=== PATIENT | male | born 1965 | race African-American/Black ===

== ENCOUNTER 2018-08-17 18:01 | Inpatient (IN) | payer MEDICARE, OTHER ==
[~2018-08-17] VITALS: Ht 167.6 cm; Wt 106.1 kg
[2018-08-17] MEDS ORDERED: fentaNYL INJECTION 100 MCG/2 ML AMP IVP STA (18:32)
[2018-08-17] MEDS ORDERED: NS IV 1000 ML 1,000 ML IV STA ×2 (18:32→20:15)
--- NOTE | 2018-08-17 18:39 | ED Fall/Injury ---
General Chief Complaint: Trauma-Non Activation Stated Complaint: PER PT PASSED OUT AND HIT LT SIDE OF BODY. SOB. Nursing Triage Note: Patient states he became light headed and fell yesterday against his bathroom counter, states he hit primarily his left side. States he "woke up when I hit the ground." Reports pain rated 9/10 in left rib cage. Also states he has had generalized abdominal pain and diarrhea for 3 days. History of Present Illness Date Seen by Provider: Aug 17, 2018 Time Seen by Provider: 18:24 This is a 53-year-old male with a history of diabetes who complains of left- sided chest wall pain after a fall yesterday. He had just finished urinating and stood up and got lightheaded causing him to stumble forwards into the cabinet. For a couple days prior to this he felt like he had "stomach flu" with vomiting and diarrhea although this has resolved. He did not injure himself anywhere else. He did not anytime have chest pain other than this chest injury, he never had shortness of breath or palpitations, he has not had bloody or black stools, he denies a history of known heart issues, denies a history of congestive heart failure. His pain is sore, constant, moderate, nonradiating, nonmigratory, worse with direct palpation or with movement. Allergies and Home Medications Allergies Coded Allergies: No Known Drug Allergies (Unverified , 08/17/18) Patient Home Medication List Home Medication List Reviewed: Yes Review of Systems Review of Systems Constitutional: no symptoms reported Eyes: No Symptoms Reported Ears, Nose, Mouth, Throat: no symptoms reported Respiratory: no symptoms reported Cardiovascular: see HPI Gastrointestinal: no symptoms reported Musculoskeletal: see HPI Skin: no symptoms reported Psychiatric/Neurological: No Symptoms Reported Past Jhudtus-Ukfdlb-Nzqnne Hx Patient Social History Recent Foreign Travel: No Contact w/Someone Who Travel: No Recent Infectious Disease Expo: No Physical Exam Vital Signs Vital Signs - First Documented 08/17/18 08/17/18 18:05 21:30 Temp 98.1 Pulse 114 Resp 26 B/P (MAP) 100/62 (75) Pulse Ox 94 O2 Delivery Room Air O2 Flow Rate 3.00 Capillary Refill : Less Than 3 Seconds Height, Weight, BMI Height: 5'7.00" Weight: 235lbs. oz. 106.344207oz; BMI Method:Stated General Appearance: no apparent distress HEENT: PERRL/EOMI Neck: non-tender, supple Cardiovascular: normal peripheral pulses, other (tachycardic, regular) Respiratory: lungs clear, other (inspection of the chest wall, there is exquisite tenderness to palpation over the midaxillary line in the mid left chest with no crepitation) Gastrointestinal: non tender, soft Extremities: non-tender Neurologic/Psychiatric: prison keeper II-XII nml as tested, no motor/sensory deficits, alert, normal mood/affect, oriented x 3 Skin: warm/dry Progress/Results/Core Measures Results/Orders Lab Results Laboratory Tests Test 08/17/18 19:15 Range/Units White Blood Count 10.8 4.3-11.0 10^3/uL Red Blood Count 4.60 4.35-5.85 10^6/uL Hemoglobin 13.8 13.3-17.7 G/DL Hematocrit 41 40-54 % Mean Corpuscular Volume 90 80-99 FL Mean Corpuscular Hemoglobin 30 25-34 PG Mean Corpuscular Hemoglobin Concent 33 32-36 G/DL Red Cell Distribution Width 13.7 10.0-14.5 % Platelet Count 202 130-400 10^3/uL Mean Platelet Volume 11.7 H 7.4-10.4 FL D-Dimer 1.92 H 0.00-0.49 UG/ML Sodium Level 132 L 135-145 MMOL/L Potassium Level 5.0 3.6-5.0 MMOL/L Chloride Level 93 L 98-107 MMOL/L Carbon Dioxide Level 22 21-32 MMOL/L Anion Gap 17 H 5-14 MMOL/L Blood Urea Nitrogen 20 H 7-18 MG/DL Creatinine 1.72 H 0.60-1.30 MG/DL Estimat Glomerular Filtration Rate 50 BUN/Creatinine Ratio 12 Glucose Level 542 *H 70-105 MG/DL Calcium Level 8.9 8.5-10.1 MG/DL Troponin T 34 H <=15 NG/L My Orders Orders - RAMÍREZ FELTON T DO Ribs 2-3 View Left (08/17/18 18:32) Ekg Tracing (08/17/18 18:32) Troponin T (08/17/18 18:32) Cbc No Diff (08/17/18 18:32) Basic Metabolic Panel (08/17/18 18:32) Ns Iv 1000 Ml (Sodium Chloride 0.9%) (08/17/18 18:32) Fentanyl Injection (Sublimaze Injection (08/17/18 18:32) Insulin (Regular) Human (Humulin R (Per (08/17/18 20:14) Ns Iv 1000 Ml (Sodium Chloride 0.9%) (08/17/18 20:15) Ct Abdomen/Pelvis Wo (08/17/18 20:59) Fibrin Degradation Products (08/17/18 21:06) Medications Given in ED Vital Signs/I&O 08/17/18 08/17/18 08/17/18 08/17/18 18:05 18:21 20:00 21:30 Temp 98.1 98.1 Pulse 114 114 111 113 Resp 26 26 12 18 B/P (MAP) 100/62 (75) 100/62 (75) Pulse Ox 94 94 91 95 O2 Delivery Room Air Room Air Room Air Nasal Cannula O2 Flow Rate 3.00 Blood Pressure Mean: 75 Progress Progress Note #1: Progress Note This is a 53-year-old male with a history of diabetes who presents after a presyncopal event with a left chest wall injury. His presyncopal event is very likely secondary to a combination of dehydration as well as orthostatic hypotension. He did not have "red flag" symptoms such as chest pain or palpitations or shortness of breath, [place] syncope negative. His blood pressure is low normal and he is slightly tachycardic, this may be consistent with dehydration and we will fluid resuscitate. We will treat his pain with fentanyl. I will check an ECG, basic labs. We will check a rib x-ray. I think it is unlikely that patient has a splenic injury based on this mechanism of injury and the rest of his physical exam. He will be notified of my typical fashion for all trauma patients to follow-up for tertiary survey as soon as possible with primary care physician and to call 911 or return immediately for any new or worsening symptoms. Progress Note #2: Progress Note Patient had an elevated troponin of uncertain etiology. He does have renal insufficiency with no baseline creatinine in our system. Patient is unaware of any history of renal disease. His history again clearly suggests dehydration. He was treated with 2 L of saline. We treated with an IV bolus of 10 units of insulin, his blood glucose improved somewhat from the 500s to the 400s, he was given another bolus of 10 units of insulin. A concern was persistent hypoxia ( and sinus tachycardia) despite adequate pain control and 2 L of fluid resuscitation. It seems unlikely that he would have a pulmonary embolus, I did consider that this could have preceded his presyncopal event yesterday but again the history does not suggest this. I do however feel it is necessary to rule out this entity given the lack of response to our interventions. Patient does not have contraindications to anticoagulation, no evidence of internal bleeding on CT, no objective evidence of injury on any imaging, so we started him on a heparin drip. I discussed with admitting hospitalist Dr. Reagan that patient would likely require a VQ scan. EKG : Comment 1836: Sinus tachycardia rate of 117. Normal axis. Delayed precordial R-wave progression. Nonspecific T-wave flattening lead aVL. Q wave in lead 3. QTC 504 ms. Diagnostic Imaging Diagonstic Imaging: Xray Comments Date of Exam:08/17/18 RIBS 2-3 VIEW LEFT INDICATION: Followup left-sided rib pain. TIME OF EXAM: 6:32 p.m. FINDINGS: Multiple views of left ribs were obtained. No definite displaced rib fracture is seen. There is some atelectasis in the left base. No pneumothorax is seen. Extensive hardware in the left humerus is seen. IMPRESSION: No displaced rib fractures detected. Reviewed: Reviewed by Me (agree with findings) Critical Care Note Critical Care Start Time: 22:49 Stop Time: 23:24 Total Time (minutes) 35 minutes Progress Critical care time is exclusive of time spent on separately billable procedures. Risk to multiple organ systems from hypoxia, hyperglycemia, chest wall trauma. Primary and secondary survey were performed, advanced imaging was pursued in order to rule out life-threatening injury. Frequent reassessments were made. Multiple IV doses of insulin were administered. Supplemental oxygen was administered. Patient was given a heparin bolus and started on a heparin drip. Time also spent interpreting imaging, EKG, lab test results, discussing care with EMS and accepting physician at outside hospital. Departure Impression Primary Impression: Dehydration Additional Impressions: Hyperglycemia Elevated troponin Chest wall injury Sinus tachycardia Hypoxia Renal insufficiency Elevated d-dimer Disposition: 02 XFER SHT-TRM HOSP Condition: Stable (guarded) Transfer Time Spoke to Accepting Phy: 21:30 Transfer Facility: [facility], accepted by Dr. Reagan Method of Transfer: EMS Departure-Patient Inst. Referrals: RACQUEL RICHARDSON MD (PCP) Primary Care Physician RAMÍREZ FELTON DO Aug 17, 2018 18:39
--- NOTE | 2018-08-17 19:04 | Diagnostic Imaging Report ---
INDICATION: Followup left-sided rib pain. TIME OF EXAM: 6:32 p.m. FINDINGS: Multiple views of left ribs were obtained. No definite displaced rib fracture is seen. There is some atelectasis in the left base. No pneumothorax is seen. Extensive hardware in the left humerus is seen. IMPRESSION: No displaced rib fractures detected. Dictated by: Dictated on workstation # [id number]
[2018-08-17] MEDS ORDERED: ATOR40TA70 PO (19:10)
[2018-08-17] MEDS ORDERED: OMEP40CA36 PO (19:10)
[2018-08-17] MEDS ORDERED: INSU100I29 SC (19:10)
[2018-08-17] MEDS ORDERED: GBPN600T PO (19:10)
[2018-08-17] MEDS ORDERED: INSU100V6 (19:10)
[2018-08-17] MEDS ORDERED: INSU100I14 SC (19:10)
[2018-08-17] MEDS ORDERED: AMIT50TA3 PO (19:10)
[2018-08-17] MEDS ORDERED: METO10TA3 PO (19:10)
[2018-08-17 19:32] LABS: HEMOGLOBIN 13.8 G/DL (13.3-17.7); WHITE BLOOD COUNT 10.8 10^3/uL (4.3-11.0)
[2018-08-17 19:33] LABS: MEAN PLATELET VOLUME 11.7 FL (7.4-10.4); RED CELL DISTRIBUTION WIDTH 13.7 % (10.0-14.5)
[2018-08-17 20:04] LABS: CREATININE SERUM 1.72 MG/DL (0.60-1.30)
[2018-08-17 20:06] LABS: CALCIUM 8.9 MG/DL (8.5-10.1)
[2018-08-17] MEDS ORDERED: inSUlin (REGULAR) HUMAN 1 UNIT/0.01 ML (CHARGE PER UNIT) IV STA ×2 (20:14→22:17)
--- NOTE | 2018-08-17 21:50 | Diagnostic Imaging Report ---
PROCEDURE: CT abdomen and pelvis without contrast. TECHNIQUE: Multiple contiguous axial images were obtained through the abdomen and pelvis without the use of intravenous contrast. INDICATION: Syncope, fall, left-sided pain. FINDINGS: There is no free fluid. No evidence for hemoperitoneum. There is no free air. No focal bowel wall or mesenteric hematoma is found. Some basilar atelectasis greater left. The partially visualized ribs segments appeared intact. Reconstruction views revealed thoracolumbar spine to be maintained and aligned anatomically. There is no free air. There is no bowel, biliary or urinary tract obstruction. No inflammatory process. IMPRESSION: No acute or posttraumatic sequelae identified. No obstruction, perforation or fracture demonstrated. Dictated by: Dictated on workstation # [id number]
[2018-08-17] MEDS ORDERED: HEParin DRIP 25000 UNIT/500ML 500 ML IV ONE (22:01)
[2018-08-17] MEDS ORDERED: HEParin 1000 UNIT/ML (10ML VIAL) FOR BOLUS IV ONE (22:15)
--- NOTE | 2018-08-17 22:30 | NUR ---
peanut butter and crackers given to pt with diet sprite.
[2018-08-17 22:32] VITALS: BP 110/74
[2018-08-18] VITALS (7 sets, daily range): BP systolic 112–160; BP diastolic 62–94
[2018-08-18] MEDS ORDERED: NS IV 1000 ML 1,000 ML ONE (00:04)
--- NOTE | 2018-08-18 00:05 | NUR ---
MILAGRO RING admitted to room CU12-1, with an admitting diagnosis of HYPERGLYCEMIA, HYPOXIA,HYPOTENSION, ACUTE RENAL INSUFFICIENCY, on 08/17/18 from [facility] ED via , accompanied by .MILAGRO RING introduced to surroundings, call light, bed controls, phone, TV, temperature control, lights, meal times, smoking policy, visitor policy, side rail policy, bathrooms and showers. Patient Rights given to patient in the handbook. MILAGRO RING verbalizes understanding that [facility] is not responsible for the loss or damage to any personal effects or valuables that are kept in the patients posession during their hospitalization. The following Patient Care Plans were discussed with the : Discharge Planning, ,, and . MILAGRO RING verbalizes understanding of Interdisciplinary Patient Education. Patient and/or family were informed about the Rapid Response Team and its purpose.
--- NOTE | 2018-08-18 00:45 | NUR ---
ATTEMPTED TO CALL DR KNOX FOR ORDER CLARIFICATION SEVERAL TIMES WITHOUT SUCCESS
[2018-08-18] MEDS ORDERED: inSUlin (REGULAR) HUMAN 1 UNIT/0.01 ML (CHARGE PER UNIT) ONE (00:57)
[2018-08-18] MEDS ORDERED: RT-ALBUTEROL SULF 2.5 MG/3 ML PRE-MIX VIAL INH PRN (01:00)
[2018-08-18] MEDS ORDERED: HEParin 1000 UNIT/ML (10ML VIAL) FOR BOLUS IV SCH (01:00)
[2018-08-18] MEDS: inSUlin ASPART (NovoLOG) 1 UNIT/0.01 ML (CHARGE PER UNIT) SC SCH ×7 (01:00→21:10)
[2018-08-18] MEDS ORDERED: HEParin DRIP 25000 UNIT/500ML 500 ML IV SCH (01:02)
[2018-08-18 08:44] LABS: BASOPHILS % (AUTO) 0 % (0-10); EOSINOPHILS # (AUTO) 0.1 10^3/uL (0.0-0.3); EOSINOPHILS % (AUTO) 1 % (0-10); HEMATOCRIT 38 % (40-54); HEMOGLOBIN 12.9 G/DL (13.3-17.7); LYMPHOCYTES # (AUTO) 2.1 X 10^3 (1.0-4.0); LYMPHOCYTES % (AUTO) 33 % (12-44); MEAN CORPUSCULAR HEMOGLOBIN 30 PG (25-34); MEAN CORPUSCULAR HGB CONC 34 G/DL (32-36); MEAN CORPUSCULAR VOLUME 89 FL (80-99); MEAN PLATELET VOLUME 11.2 FL (7.4-10.4); MONOCYTES # (AUTO) 0.7 X 10^3 (0.0-1.0); MONOCYTES % (AUTO) 10 % (0-12); NEUTROPHILS # (AUTO) 3.6 X 10^3 (1.8-7.8); NEUTROPHILS % (AUTO) 56 % (42-75); PLATELET COUNT 181 10^3/uL (130-400); RED CELL DISTRIBUTION WIDTH 13.8 % (10.0-14.5); WHITE BLOOD COUNT 6.5 10^3/uL (4.3-11.0)
[2018-08-18] MEDS: RT-ALBUTEROL SULF 2.5 MG/3 ML PRE-MIX VIAL INH SCH ×2 (09:29→20:00)
--- NOTE | 2018-08-18 09:39 | History & Physical-Hospitalist ---
History of Present Illness HPI/Chief Complaint Chief Complaint: Syncopal episode HPI: This is a 53yoWM clinic pt of Dr. 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 At this current time all he is complaining of is left upper quadrant abdominal pain that is where he actually fell against the corner of his sink. CT scan was obtained that appeared to have no splenic rupture or anything of that matter. CT angiogram has been ordered by Dr. Jung due to elevated D dimer to r/o PE. I have consulted Dr. Nicole due to poorly controlled DM and elevated troponin and will check echocardiogram and await for his recommendations. He is , chronically disabled and lives with his mother. He previously worked in a factory. He had become dizzy and fell a couple of times before this occurred early Thursday morning, and he laid there for several minutes. Will order PT and OT and obtain a general surgery consultation due to the recent fall. Source: patient Exam Limitations: no limitations Date Seen 08/18/18 Time Seen by a Provider: 10:00 Attending Physician Wilman Reagan MD PCP Zacarias Alba MD Referring Physician Date of Admission Aug 17, 2018 at 21:30 Home Medications & Allergies Home Medications Reviewed patient Home Medication Reconciliation performed by pharmacy medication reconciliations retail merchandiser technician and/or nursing. Patients Allergies have been reviewed. Allergies Allergies Coded Allergies No Known Drug Allergies (Unverified08/17/18) Past Dxkxzbb-Xsbkdp-Izypme Hx Past Med/Social Hx: Reviewed Nursing Past Med/Soc Hx, Reviewed and Corrections made Patient Social History Marrital Status: Employed/Student: unemployed Alcohol Use: Denies Use Recreational Drug Use: No Smoking Status: Never a Smoker Type Used: Smokeless Tobacco 2nd Hand Smoke Exposure: No Recent Foreign Travel: No Contact w/other who traveled: No Recent Hopitalizations: No Recent Infectious Disease Expo: No Seasonal Allergies Seasonal Allergies: No Past Medical History Surgeries: Orthopedic Cardiac: Hypertension Neurological: Neuropathy Musculoskeletal: Back Injury Endocrine: Diabetes, Insulin dep History of Blood Disorders: No Adverse Reaction to Blood Amin: No Review of Systems Constitutional: see HPI, dizziness, weakness EENTM: no symptoms reported Respiratory: no symptoms reported Cardiovascular: chest pain Gastrointestinal: abdominal pain (LUQ) Genitourinary: no symptoms reported Musculoskeletal: back pain, joint pain Skin: no symptoms reported Psychiatric/Neurological: Depressed All Other Systems Reviewed Negative Unless Noted: Yes Physical Exam Physical Exam Vital Signs Vital Signs - First Documented 08/17/18 08/17/18 08/18/18 18:05 21:30 00:34 Temp 98.1 Pulse 114 Resp 26 B/P (MAP) 100/62 (75) Pulse Ox 94 O2 Delivery Room Air O2 Flow Rate 3.00 FiO2 28 Capillary Refill : Less Than 3 Seconds Height, Weight, BMI Height: 5'6.00" Weight: 234lbs. 0.0oz. 106.600953ok; 36.8 BMI Method:Stated General Appearance: No Apparent Distress, WD/WN, Chronically ill Eyes: Right Eye Normal Inspection, Right Eye PERRL HEENT: PERRL/EOMI, Normal ENT Inspection, Pharynx Normal, Moist Mucous Membranes Neck: Full Range of Motion, Normal Inspection, Non Tender Respiratory: Chest Non Tender, Lungs Clear, Normal Breath Sounds, No Accessory Muscle Use, No Respiratory Distress Cardiovascular: Regular Rate, Rhythm, No Edema, No Gallop, No JVD, No Murmur, Normal Peripheral Pulses Gastrointestinal: Normal Bowel Sounds, No Organomegaly, No Pulsatile Mass, Non Tender, Soft Back: Normal Inspection, No CVA Tenderness, No Vertebral Tenderness Extremity: Normal Capillary Refill, Normal Inspection, Normal Range of Motion, Non Tender, No Calf Tenderness, No Pedal Edema Neurologic/Psychiatric: Alert, Oriented x3, No Motor/Sensory Deficits, Normal Mood/Affect Skin: Normal Color, Warm/Dry Lymphatic: No Adenopathy Results Results/Procedures Labs Laboratory Tests 08/17/18 19:15 08/18/18 08:35 Patient resulted labs reviewed. Assessment/Plan Admission Diagnosis Assessment: Syncope Severe hyperglycemia Poorly controlled DM Disability due to orthopedic issues Elevated d-dimer with normal VQ scan Elevated troponin Fall with left upper abdominal pain consulting general surgery due to trauma and spleen near region of fall Plan: General surgery, Pulmonology and Cardiology appreciated Complex case Poorly controlled diabetes management Admission Status: Inpatient Order (span 2 midnights) Reason for Inpatient Admission: Poorly controlled DM with chest pain and ARF will require 3 days Diagnosis/Problems Diagnosis/Problems (1) Chest wall injury Status: Acute Qualifiers: Encounter type: initial encounter Qualified Codes: S29.9XXA - Unspecified injury of thorax, initial encounter (2) Elevated troponin Status: Resolved Resolution Date/Time: 08/18/18 @ 19:59 (3) Hypoxia Status: Acute (4) Renal insufficiency Status: Acute (5) Hyperglycemia Status: Acute (6) Dehydration Status: Acute (7) Sinus tachycardia Status: Acute (8) Elevated d-dimer Status: Acute (9) GERD (gastroesophageal reflux disease) Status: Chronic Qualifiers: Esophagitis presence: without esophagitis Qualified Codes: K21.9 - Gastro- esophageal reflux disease without esophagitis (10) Hyperlipemia Status: Chronic Qualifiers: Hyperlipidemia type: mixed hyperlipidemia Qualified Codes: E78.2 - Mixed hyperlipidemia Clinical Quality Measures DVT/VTE Risk/Contraindication: Risk Factor Score Per Nursin RFS Level Per Nursing on Admit: 2=Moderate DAVID HERNÁNDEZ DO Aug 18, 2018 09:39
[2018-08-18 09:48] LABS: ALANINE AMINOTRANSFERASE 17 U/L (0-55); ALBUMIN 3.4 GM/DL (3.2-4.5); ALKALINE PHOSPHATASE 153 U/L (40-136); BILIRUBIN,TOTAL 0.3 MG/DL (0.1-1.0); BUN/CREATININE RATIO 11; CARBON DIOXIDE 22 MMOL/L (21-32); CHLORIDE 104 MMOL/L (98-107); CREATININE SERUM 1.42 MG/DL (0.60-1.30); GFR ESTIMATED > 60; GLUCOSE 386 MG/DL (70-105); SODIUM 136 MMOL/L (135-145); TOTAL PROTEIN 6.6 GM/DL (6.4-8.2)
--- NOTE | 2018-08-18 10:53 | Consultation-Cardiology ---
HPI-Cardiology Cardiology Consultation: Date of Consultation 08/18/18 Time Seen by a Provider: 10:00 Date of Admission 08-18-18 Attending Physician Wilman Reagan MD Admitting Physician Zacarias Alba MD Consulting Physician Yvan Nicole MD HPI: Chief Complaint: Near syncope Mr. Matson is a 53 year old male admitted to ICU 12 from [facility] ED. He reports he had gotten up on late Thursday night to use the BR. He urinated and then went to walk back to bed. He states he had a sudden feeling of lightheadedness and "going down". He states he began to fall and hit his left side on the bathroom sink. He reports he did not completely pass out. He reports he fell to the ground and laid there for approx 30minutes before he could get himself up. He states the pain to his left side persisted and he came to the ED in [facility]. He reports he has been having episodes of diarrhea. No n/v. No c/o fever or chills. He reports he has had some increased SOB and inability to take a deep breath d/t the amount of pain he is having. He reports for the last week he has had episodes of lightheadedness when getting up to ambulate, but no syncopal episode. He reports he sits down and the dizziness with resolve. No c/o palpitations. He reports chronic bilat LE swelling which has been somewhat worse lately. He reports he has not been checking his blood sugars at home. Review of Systems-Cardiology Review of Systems Constitutional: No chills, No malaise Eyes: No blindness, No vision change Ears/Nose/Throat: No epistaxis, No recent hearing loss Respiratory: As described under HPI Cardiovascular: As described under HPI Gastrointestinal: No constipation; diarrhea; No nausea, No vomiting Genitourinary: No dysuria, No hematuria Musculoskeletal: joint pain (chronic left ankle), other (lateral left pain " rib pain") Skin: No rash, No ulcerations Psychiatric/Neurological: As described under HPI; No seizure, No focal weakness Hematologic: No bleeding abnormalities [id number] Hx Patient Social History Alcohol Use: Denies Use Recreational Drug Use: No Smoking Status: Never a Smoker Type Used: Smokeless Tobacco 2nd Hand Smoke Exposure: No Recent Foreign Travel: No Recent Infectious Disease Expo: No Hospitalization with Isolation: Denies Past Medical History PMH As described under Assessment. Family Medical History Family Medical History: Denies any family h/o CAD, CVA or SCD Allergies and Home Medications Allergies Coded Allergies: No Known Drug Allergies (Unverified , 08/17/18) Home Medications Amitriptyline HCl 50 Mg Tablet, 50 MG PO HS, (Reported) Atorvastatin Calcium 40 Mg Tablet, 40 MG PO HS, (Reported) Gabapentin 600 Mg Tablet, 600 MG PO TID, (Reported) Hydrocodone Bit/Acetaminophen 1 Tab Tab, 1 TAB PO Q4-6HR PRN for PAIN-MODERATE Prescribed by: DAVID HERNÁNDEZ on 08/19/18927 Insulin Aspart 300 Units/3 Ml Solution, 15 UNITS SC TIDAC, (Reported) Insulin Detemir 100 Unit/1 Ml Insuln.pen, 25 UNITS SC BID, (Reported) Metoclopramide HCl 10 Mg Tablet, 10 MG PO TID, (Reported) Metoprolol Tartrate 25 Mg Tablet, 25 MG PO BID Prescribed by: DAVID HERNÁNDEZ on 08/19/18927 Omeprazole 40 Mg Capsule.dr, 40 MG PO DAILY, (Reported) Patient Home Medication List Home Medication List Reviewed: Yes Physical Exam-Cardiology Physical Exam Vital Signs/I&O 08/19/18 08/19/18 08/19/18 08/19/18 00:00 04:50 08:00 08:02 Temp 98.9 99.0 97.5 Pulse 96 88 96 Resp 20 20 18 B/P (MAP) 115/77 (90) 113/78 (90) 116/75 (89) Pulse Ox 96 95 94 88 O2 Delivery Room Air Nasal Cannula Room Air Room Air O2 Flow Rate 2.00 08/19/18 00:00 Intake Total 960 ml Output Total 350 ml Balance 610 ml Capillary Refill : Less Than 3 Seconds Constitutional: AAO x 3, well-developed, well-nourished HEENT: PERRL, hearing is well preserved, oral hygience is good Neck: No carotid bruit; carotid pulses are 2 + bilaterally Respiratory: No accessory muscle use, No respiratory distress; chest expansion is symmetric, chest is bilaterally symmetric, other (fair air entry bilat; poor inspiratory effort) Cardiovascular: regular rate-rhythm; No JVD; S1 and S2 Gastrointestinal: No tender; soft, round, audible bowel sounds Rectal: deferred Genital/Rectal: other (urinary catheter to DD with clear straw colored urine) Extremities: other (mod bilat LE swelling) Neurologic/Psychiatric: oriented x 3, grossly intact Skin: No rash, No ulcerations Data Review Labs Laboratory Tests 08/18/18 10:42: Glucometer 360H 08/18/18 17:23: Glucometer 397H 08/18/18 20:44: Glucometer 192H 08/19/18 04:20: White Blood Count 8.6, Red Blood Count 4.09L, Hemoglobin 12.1L, Hematocrit 36L, Mean Corpuscular Volume 89, Mean Corpuscular Hemoglobin 30, Mean Corpuscular Hemoglobin Concent 33, Red Cell Distribution Width 13.9, Platelet Count 188, Mean Platelet Volume 11.1H, Sodium Level 136, Potassium Level 4.2, Chloride Level 103, Carbon Dioxide Level 23, Anion Gap 10, Blood Urea Nitrogen 12, Creatinine 1.24, Estimat Glomerular Filtration Rate > 60, BUN/Creatinine Ratio 10, Glucose Level 398H, Calcium Level 8.6, Corrected Calcium 9.2, Magnesium Level 1.4L, Total Bilirubin 0.3, Aspartate Amino Transf (AST/SGOT) 22, Alanine Aminotransferase (ALT/SGPT) 18, Alkaline Phosphatase 145H, Total Protein 6.2L, Albumin 3.2, Triglycerides Level 102, Cholesterol Level 108, LDL Cholesterol Direct 61, VLDL Cholesterol 20, HDL Cholesterol 29L, Thyroid Stimulating Hormone (TSH) 1.24 Radiology NAME: MILAGRO MATSON [facility] REC#: [id number] PT STATUS: REG ER : 1965 PHYSICIAN: RAMÍREZ FELTON DO ADMIT DATE: 08/17/18/ER FS Signed Date of Exam: 08/17/18 CT ABDOMEN/PELVIS WO PROCEDURE: CT abdomen and pelvis without contrast. TECHNIQUE: Multiple contiguous axial images were obtained through the abdomen and pelvis without the use of intravenous contrast. INDICATION: Syncope, fall, left-sided pain. FINDINGS: There is no free fluid. No evidence for hemoperitoneum. There is no free air. No focal bowel wall or mesenteric hematoma is found. Some basilar atelectasis greater left. The partially visualized ribs segments appeared intact. Reconstruction views revealed thoracolumbar spine to be maintained and aligned anatomically. There is no free air. There is no bowel, biliary or urinary tract obstruction. No inflammatory process. IMPRESSION: No acute or posttraumatic sequelae identified. No obstruction, perforation or fracture demonstrated. Dictated by: Dictated on workstation # [id number] Dict: 08/17/182140 Trans: 08/17/182155 Interpreted by: NICOL VALERIO Electronically signed by: NICOL VALERIO 08/17/182155 A/P-Cardiology Assessment/Admission Diagnosis Near syncopal episode of undetermined etiology Elevated troponin at [facility] ED (Trop T - subsequent Trop I at this facility have been WNL) Dyspnea of undetermined etiology Sinus tachycardia GERD Hep C (+) for which he reports he has had tx DM 2 - IDDM Chronic joint pain Renal insufficiency - likely chronic d/t diabetic nephropathy Bilat LE swelling Discussion and Recomendations Near syncopal episode of undetermined etiology - possible postural hypotension - check ortho v/s Monitor on tele for possible bradyarrhythmia Echocardiogram to eval structure and function Monitor lab closely Management of DM as per medical services Further recs will be based on his hospital course We would like to thank medical services for this consult Clinical Quality Measures DVT/VTE Risk/Contraindication: Risk Factor Score Per Nursin RFS Level Per Nursing on Admit: 2=Moderate MEIR RAMIREZ Aug 18, 2018 10:53
[2018-08-18] MEDS ORDERED: meTOprolol TARTRATE 25 MG (LOPRESSOR) TABLET PO NR (11:15)
--- NOTE | 2018-08-18 11:23 | NUR ---
WENT OVER THE EXT MED HX WITH THE PATIENT AND HE VERIFIED HOW HE TAKES EACH MEDICATION. HE STATES HE DOES NOT TAKE ANYTHING OTC.
--- NOTE | 2018-08-18 13:00 | NUR ---
REPORT RECEIVED FROM BOAT WASHER.
--- NOTE | 2018-08-18 13:40 | NUR ---
PATIENT BROUGHT TO ROOM VIA WHEELCHAIR. VITAL SIGNS STABLE ON ROOM AIR. PATIENT ORIENTED TO ROOM AND CALL LIGHT. NO FURTHER NEEDS EXPRESSED AT THIS TIME.
[2018-08-18] MEDS: fentaNYL INJECTION 100 MCG/2 ML AMP IV PRN ×2 (14:44→17:43)
[2018-08-18] MEDS: GABAPENTIN 600 MG (NEURONTIN) TAB PO SCH ×2 (14:44→21:09)
--- NOTE | 2018-08-18 15:57 | Physical Therapy Progress Note ---
Therapy Progress Note 1553 Pt was not in room and nurse reports that he is down in radiology for a lung scan. PT will assess in the morning for participation in physical therapy services. BRET GUO PT Aug 18, 2018 15:57
[2018-08-18] MEDS: METOCLOPRAMIDE 10 MG (REGLAN) TAB PO SCH (17:28)
--- NOTE | 2018-08-18 17:52 | Consultation-Cardiology ---
HPI-Cardiology Cardiology Consultation: Date of Consultation 08/18/18 Time Seen by a Provider: 13:00 Date of Admission Attending Physician Wilman Reagan MD Admitting Physician Zacarias Alba MD Consulting Physician DELANEY GALEAS MD, MA, FACP, FACC, [facility] HPI: Chief Complaint: Near syncope Mr. Matson is a 53 year old male admitted to ICU 12 from [facility] ED. He reports he had gotten up on late Thursday night to use the BR. He urinated and then went to walk back to bed. He states he had a sudden feeling of lightheadedness and "going down". He states he began to fall and hit his left side on the bathroom sink. He reports he did not completely pass out. He reports he fell to the ground and laid there for approx 30minutes before he could get himself up. He states the pain to his left side persisted and he came to the ED in [facility]. He reports he has been having episodes of diarrhea. No n/v. No c/o fever or chills. He reports he has had some increased SOB and inability to take a deep breath d/t the amount of pain he is having. He reports for the last week he has had episodes of lightheadedness when getting up to ambulate, but no syncopal episode. He reports he sits down and the dizziness with resolve. No c/o palpitations. He reports chronic bilat LE swelling which has been somewhat worse lately. He reports he has not been checking his blood sugars at home. Review of Systems-Cardiology Review of Systems Constitutional: No chills, No malaise Eyes: No blindness, No vision change Ears/Nose/Throat: No epistaxis, No recent hearing loss Respiratory: As described under HPI Cardiovascular: As described under HPI Gastrointestinal: No constipation; diarrhea; No nausea, No vomiting Genitourinary: No dysuria, No hematuria Musculoskeletal: joint pain (chronic left ankle), other (lateral left pain " rib pain") Skin: No rash, No ulcerations Psychiatric/Neurological: As described under HPI; No seizure, No focal weakness Hematologic: No bleeding abnormalities [id number] Hx Patient Social History Alcohol Use: Denies Use Recreational Drug Use: No Smoking Status: Never a Smoker Type Used: Smokeless Tobacco 2nd Hand Smoke Exposure: No Recent Foreign Travel: No Recent Infectious Disease Expo: No Hospitalization with Isolation: Denies Past Medical History PMH As described under Assessment. Family Medical History Family Medical History: Denies any family h/o CAD, CVA or SCD Allergies and Home Medications Allergies Coded Allergies: No Known Drug Allergies (Unverified , 08/17/18) Home Medications Amitriptyline HCl 50 Mg Tablet, 50 MG PO HS, (Reported) Atorvastatin Calcium 40 Mg Tablet, 40 MG PO HS, (Reported) Gabapentin 600 Mg Tablet, 600 MG PO TID, (Reported) Insulin Aspart 300 Units/3 Ml Solution, 15 UNITS SC TIDAC, (Reported) Insulin Detemir 100 Unit/1 Ml Insuln.pen, 25 UNITS SC BID, (Reported) Metoclopramide HCl 10 Mg Tablet, 10 MG PO TID, (Reported) Omeprazole 40 Mg Capsule.dr, 40 MG PO DAILY, (Reported) Patient Home Medication List Home Medication List Reviewed: Yes Physical Exam-Cardiology Physical Exam Vital Signs/I&O 08/18/18 08/18/18 08/18/18 08/18/18 07:00 08:00 09:30 13:17 Pulse 99 105 110 Resp 20 B/P (MAP) Pulse Ox 92 O2 Delivery Nasal Cannula Nasal Cannula O2 Flow Rate 2.00 08/18/18 08/18/18 13:42 17:20 Temp 98.6 97.6 Pulse 110 80 Resp 18 22 B/P (MAP) 121/94 (103) 123/80 (94) Pulse Ox 93 92 O2 Delivery Room Air Room Air 08/18/18 00:00 Intake Total 2024 ml Balance 2024 ml Capillary Refill : Less Than 3 Seconds Constitutional: AAO x 3, well-developed, well-nourished HEENT: PERRL, hearing is well preserved, oral hygience is good Neck: No carotid bruit; carotid pulses are 2 + bilaterally Respiratory: No accessory muscle use, No respiratory distress; chest expansion is symmetric, chest is bilaterally symmetric, other (fair air entry bilat; poor inspiratory effort) Cardiovascular: regular rate-rhythm; No JVD; S1 and S2 Gastrointestinal: No tender; soft, round, audible bowel sounds Rectal: deferred Genital/Rectal: other (urinary catheter to DD with clear straw colored urine) Extremities: other (mod bilat LE swelling) Neurologic/Psychiatric: oriented x 3, grossly intact Skin: No rash, No ulcerations Data Review Labs Laboratory Tests 08/17/18 19:15: White Blood Count 10.8, Red Blood Count 4.60, Hemoglobin 13.8, Hematocrit 41, Mean Corpuscular Volume 90, Mean Corpuscular Hemoglobin 30, Mean Corpuscular Hemoglobin Concent 33, Red Cell Distribution Width 13.7, Platelet Count 202, Mean Platelet Volume 11.7H, D-Dimer 1.92H, Sodium Level 132L, Potassium Level 5.0, Chloride Level 93L, Carbon Dioxide Level 22, Anion Gap 17H, Blood Urea Nitrogen 20H, Creatinine 1.72H, Estimat Glomerular Filtration Rate 50, BUN/ Creatinine Ratio 12, Glucose Level 542*H, Calcium Level 8.9, Troponin T 34H 08/17/18 21:55: Glucometer 454*H 08/18/18 00:27: Glucometer 373H 08/18/18 00:30: Activated Partial Thromboplast Time > 200*H, Troponin I < 0.028 08/18/18 06:27: Glucometer 381H 08/18/18 08:35: White Blood Count 6.5, Red Blood Count 4.30L, Hemoglobin 12.9L, Hematocrit 38L, Mean Corpuscular Volume 89, Mean Corpuscular Hemoglobin 30, Mean Corpuscular Hemoglobin Concent 34, Red Cell Distribution Width 13.8, Platelet Count 181, Mean Platelet Volume 11.2H, Neutrophils (%) (Auto) 56, Lymphocytes (%) (Auto) 33 , Monocytes (%) (Auto) 10, Eosinophils (%) (Auto) 1, Basophils (%) (Auto) 0, Neutrophils # (Auto) 3.6, Lymphocytes # (Auto) 2.1, Monocytes # (Auto) 0.7, Eosinophils # (Auto) 0.1, Basophils # (Auto) 0.0, Activated Partial Thromboplast Time 85H, Sodium Level 136, Potassium Level 4.0, Chloride Level 104 , Carbon Dioxide Level 22, Anion Gap 10, Blood Urea Nitrogen 16, Creatinine 1.42H, Estimat Glomerular Filtration Rate > 60, BUN/Creatinine Ratio 11, Glucose Level 386H, Calcium Level 9.0, Corrected Calcium 9.5, Total Bilirubin 0.3, Aspartate Amino Transf (AST/SGOT) 19, Alanine Aminotransferase (ALT/SGPT) 17, Alkaline Phosphatase 153H, Troponin I < 0.028, Total Protein 6.6, Albumin 3.4 08/18/18 10:42: Glucometer 360H 08/18/18 17:23: Glucometer 397H A/P-Cardiology Assessment/Admission Diagnosis Near syncopal episode of undetermined etiology No evidence of acute TN. Elevated troponin T at [facility] ED, but Trop I at this facility have been WNL) Dyspnea of undetermined etiology Sinus tachycardia GERD Hep C (+) for which he reports he has had tx DM 2 - IDDM Chronic joint pain Renal insufficiency - likely chronic d/t diabetic nephropathy Bilat LE swelling Discussion and Recomendations Near syncopal episode of undetermined etiology - possible postural hypotension - check ortho v/s Monitor on tele for possible bradyarrhythmia Echocardiogram to eval structure and function MPI to eval for cor ischemia Monitor lab closely Management of DM as per medical services Further recs will be based on his hospital course We would like to thank medical services for this consult Clinical Quality Measures DVT/VTE Risk/Contraindication: Risk Factor Score Per Nursin RFS Level Per Nursing on Admit: 2=Moderate DELANEY GALEAS MD FACP FACC [facility] Aug 18, 2018 17:52
[2018-08-18] MEDS ORDERED: REGADENOSON 0.4 MG/5 ML SYR (LEXISCAN) IV ONE (18:00)
--- NOTE | 2018-08-18 18:10 | Diagnostic Imaging Report ---
INDICATION: Hypoxia and elevated troponin with hyperglycemia and acute renal insufficiency. EXAMINATION: Ventilation and perfusion lung imaging was performed after intravenous administration of 5 mCi intravenous technetium 99m MAA and 36 mCi technetium 99m DTPA via facemask. FINDINGS: There is normal distribution of activity on ventilation and perfusion images. There is no evidence of focal defect or wedge-shaped abnormality. No mismatch is seen. IMPRESSION: Normal ventilation and perfusion lung scan. Dictated by: Dictated on workstation # [id number]
[2018-08-18] MEDS ORDERED: AMITRIPTYLINE 50 MG (ELAVIL) TAB PO SCH (21:00)
[2018-08-18] MEDS: inSUlin DETERMIR 1 UNIT/0.01 ML (LEVEMIR) CHARGE PER UNIT SQ SCH (21:09)
[2018-08-18] MEDS: meTOprolol TARTRATE 25 MG (LOPRESSOR) TABLET PO SCH (21:09)
[2018-08-19] VITALS: BP 115/77
[2018-08-19 04:29] LABS: HEMOGLOBIN 12.1 G/DL (13.3-17.7); MEAN PLATELET VOLUME 11.1 FL (7.4-10.4); RED CELL DISTRIBUTION WIDTH 13.9 % (10.0-14.5); WHITE BLOOD COUNT 8.6 10^3/uL (4.3-11.0)
[2018-08-19 04:50] VITALS: BP 113/78
[2018-08-19 04:52] LABS: ALANINE AMINOTRANSFERASE 18 U/L (0-55); ALBUMIN 3.2 GM/DL (3.2-4.5); ALKALINE PHOSPHATASE 145 U/L (40-136); BILIRUBIN,TOTAL 0.3 MG/DL (0.1-1.0); BUN/CREATININE RATIO 10; CALCIUM 8.6 MG/DL (8.5-10.1); CARBON DIOXIDE 23 MMOL/L (21-32); CHLORIDE 103 MMOL/L (98-107); CHOLESTEROL 108 MG/DL (< 200); CREATININE SERUM 1.24 MG/DL (0.60-1.30); GFR ESTIMATED > 60; GLUCOSE 398 MG/DL (70-105); HDL CHOLESTEROL 29 MG/DL (40-60); MAGNESIUM 1.4 MG/DL (1.8-2.4); POTASSIUM 4.2 MMOL/L (3.6-5.0); SODIUM 136 MMOL/L (135-145); TOTAL PROTEIN 6.2 GM/DL (6.4-8.2); TRIGLYCERIDES 102 MG/DL (<150); VLDL CHOLESTEROL 20 MG/DL (5-40)
[2018-08-19] MEDS: METOCLOPRAMIDE 10 MG (REGLAN) TAB PO SCH ×2 (06:07→12:30)
[2018-08-19] MEDS: inSUlin ASPART (NovoLOG) 1 UNIT/0.01 ML (CHARGE PER UNIT) SC SCH ×4 (06:07→12:29)
[2018-08-19 08:00] VITALS: BP 116/75
[2018-08-19] MEDS: RT-ALBUTEROL SULF 2.5 MG/3 ML PRE-MIX VIAL INH SCH (08:02)
--- NOTE | 2018-08-19 08:38 | Physical Therapy Evaluation ---
PT Evaluation-General Medical Diagnosis Admission Date Aug 17, 2018 at 21:30 Medical Diagnosis: weakness Onset Date: Aug 17, 2018 Therapy Diagnosis Therapy Diagnosis: impaired mobility, endurance, strength Height/Weight Height (Feet): 5 Height (Inches): 6.00 Weight (Pounds): 234 Weight (Ounces): 0.0 Precautions Precautions/Isolations: Standard Precautions Referral Physician: Malaika Padilla DO Reason for Referral: Evaluation/Treatment Medical History Additional Medical History Past Medical History Surgeries: Orthopedic Cardiac: Hypertension Neurological: Neuropathy Musculoskeletal: Back Injury Endocrine: Diabetes, Insulin dep History of Blood Disorders: No Reviewed History: Yes Social History Home: Single Level Current Living Status: Other Family Entry Into Home: Stairs With Railing Prior/Core FIM Prior Level of Function Therapy Code Descriptions/Definitions Functional [place] Measure: 0=Not Assessed/NA 4=Minimal Assistance 1=Total Assistance 5=Supervision or Setup 2=Maximal Assistance 6=Modified [place] 3=Moderate Assistance 7=Complete [place] Therapy Quality Codes: 6 Independent with activity with or without an assistive device 5 Patient requires set up or clean up by helper. Patient completes activity by themselves 4 Supervision or touching assist (CGA). [place] provide cues , steadying assist 3 The helper provides less than half the effort to complete the activity 2 The helper provides more than half the effort to complete the activity 1 Dependent. The helper does all the effort to complete an activity 7 Patient refused to complete or attempt activity 9 The patient did not perform the activity before the current illness or injury 88 Not attempted due to Medical conditions or safety concerns Functional Abilities and Goals: Independent: Patient completed the activities by him/herself, with or without an assistive device, with no assistance from a helper. Needed Some Help: Patient needed partial assistance from another person to complete activities. Dependent: A helper completed the activities for the patient. Unknown: Not Applicable: Bed Mobility: 7 Transfers (B,C,W/C) (FIM): 7 Gait: 7 Indoor Mobility (Ambulation): Independent Stairs: Independent PT Evaluation-Current Subjective Patient sitting EOB pre tx, agrees to PT, has 5/10 pain in left side. Pt/Family Goals "to go home" Objective Patient Orientation: Person, Place, Situation Attachments: Oxygen, IV ROM/Strength ROM Lower Extremities limited in left ankle (orthopedic surgery) Strength Lower Extremities right lower extremity (hip flexion 3+/5, knee flexion 4+/5, knee extension 4+/5 , dorsiflexion 3+/5), left lower extremity (hip flexion 3+/5, knee flexion 4+/5 , knee extension 4+/5, dorsiflexion 3+/5) Neuromuscular (Tone, Coordination, Reflexes) NT Sensory Vision: Functional Hearing: Functional Sensation Right Lower Extremit: Impaired Sensation Left Lower Extremity: Impaired Transfers Therapy Code Descriptions/Definitions Functional [place] Measure: 0=Not Assessed/NA 4=Minimal Assistance 1=Total Assistance 5=Supervision or Setup 2=Maximal Assistance 6=Modified [place] 3=Moderate Assistance 7=Complete [place] Transfers (B, C, W/C) (FIM): 6 Sit to/from Stand: 6 Gait Mode of Locomotion: Walk Anticipated Mode of Locomotion: Walk Gait (FIM): 6 Distance: 300' Gait Assistive Device: Cane Single Point Comments/Gait Description Steady but slow ambulation, no LOB, therapist needed to push IV pole and oxygen tank Balance Sitting Static: Normal Sitting Dynamic: Normal Standing Static: Good Standing Dynamic: Good Treatment seated exercises x15 (AP, LAQ) Assessment/Needs Patient has impaired mobility and endurance, no LOB or dizziness. Rehab Potential: Fair PT Short Term Goals Short Term Goals Time Frame: Aug 26, 2018 Transfers (B,C,W/C) (FIM): 7 Gait (FIM): 6 Gait Distance Comment: 400' Gait Assistive Device: Cane Single Point PT Plan Problem List Problem List: Activity Tolerance, Functional Strength, Gait Treatment/Plan Treatment Plan: Continue Plan of Care Treatment Plan: Education, Functional Activity Ti, Functional Strength, Gait , Therapeutic Exercise Treatment Duration: Aug 26, 2018 Frequency: 6 times per week Estimated Hrs Per Day: .25 hour per day Patient and/or Family Agrees t: Yes Safety Risks/Education Patient Education: Gait Training, Transfer Techniques, Correct Positioning, Safety Issues Teaching Recipient: Patient Teaching Methods: Demonstration, Discussion Response to Teaching: Reinforcement Needed Discharge Recommendations Plan Patient will perform bed mobility and transfer training, balance and endurance training, functional strengthening, stair training, gait training, and education , to improve functional mobility and independence at home. Therapy D/C Recommendations: Home w/ Family Support Time/GCodes Time In: 815 Time Out: 830 Total Billed Treatment Time: 15 Total Billed Treatment 1 visit EVL 15' RANJITH FERNANDEZ PT Aug 19, 2018 08:38
[2018-08-19] MEDS ORDERED: PANTOPRAZOLE 40 MG (PROTONIX) TAB PO SCH (09:00)
[2018-08-19] MEDS: meTOprolol TARTRATE 25 MG (LOPRESSOR) TABLET PO SCH (09:11)
[2018-08-19] MEDS: inSUlin DETERMIR 1 UNIT/0.01 ML (LEVEMIR) CHARGE PER UNIT SQ SCH (09:12)
[2018-08-19] MEDS: GABAPENTIN 600 MG (NEURONTIN) TAB PO SCH ×2 (09:12→14:00)
[2018-08-19] MEDS ORDERED: METO-333 PO (09:28)
[2018-08-19] MEDS ORDERED: ACHD5005 PO (09:28)
--- NOTE | 2018-08-19 09:29 | Discharge Summary-Hospitalist ---
Diagnosis/Chief Complaint Date of Admission Aug 17, 2018 at 21:30 Date of Discharge Discharge Date: Aug 19, 2018 Admission Diagnosis Assessment: Syncope Severe hyperglycemia Poorly controlled DM Disability due to orthopedic issues Elevated d-dimer with normal VQ scan Elevated troponin Fall with left upper abdominal pain consulting general surgery due to trauma and spleen near region of fall Plan: General surgery, Pulmonology and Cardiology appreciated Complex case Poorly controlled diabetes management Discharge Diagnosis (1) Chest wall injury Status: Acute (2) Elevated troponin Status: Resolved (3) Hypoxia Status: Resolved (4) Renal insufficiency Status: Chronic (5) Hyperglycemia Status: Acute (6) Dehydration Status: Resolved (7) Sinus tachycardia Status: Resolved (8) Elevated d-dimer Status: Acute (9) GERD (gastroesophageal reflux disease) Status: Chronic (10) Hyperlipemia Status: Chronic Discharge Summary Discharge Physical Exam Allergies: Coded Allergies: No Known Drug Allergies (Unverified , 08/17/18) Vitals & I&Os Vital Signs Date Time Temp Pulse Resp B/P (MAP) Pulse Ox O2 Delivery O2 Flow Rate FiO2 08/19/18 14:00 08/19/18 12:00 97.9 85 18 96 Room Air 08/19/18 04:50 2.00 08/18/18 00:34 28 General Appearance: No Apparent Distress, WD/WN, Chronically ill, Obese Respiratory: Chest Non Tender, Lungs Clear, Normal Breath Sounds, No Accessory Muscle Use, No Respiratory Distress Cardiovascular: Regular Rate, Rhythm, No Edema, No Gallop, No JVD, No Murmur, Normal Peripheral Pulses Neurologic/Psychiatric: Alert, Oriented x3, No Motor/Sensory Deficits, Normal Mood/Affect Hospital Course Was the Problem List Reviewed?: Yes Pt ready for DC Cardiology will put a 30 day event monitor on and have follow up with him after that Pain medication for left upper quadrant abdominal pain provided Eating and drinking well Bowels are moving Has plenty of insulin and home medications at home Will send a few pain pill prescriptions with him at DC Pt had an uneventful hospital course and after he was monitored closely on telemetry echocardiogram completed and Dr. Nicole and Dr. Jung consultation performed. He was deemed stable for DC to home with close follow up and he already has a follow up appointment with Dr. Alba scheduled for 09/10/18. Labs (last 24 hrs) Laboratory Tests 08/18/18 20:44: Glucometer 192H 08/19/18 04:20: White Blood Count 8.6, Red Blood Count 4.09L, Hemoglobin 12.1L, Hematocrit 36L, Mean Corpuscular Volume 89, Mean Corpuscular Hemoglobin 30, Mean Corpuscular Hemoglobin Concent 33, Red Cell Distribution Width 13.9, Platelet Count 188, Mean Platelet Volume 11.1H, Sodium Level 136, Potassium Level 4.2, Chloride Level 103, Carbon Dioxide Level 23, Anion Gap 10, Blood Urea Nitrogen 12, Creatinine 1.24, Estimat Glomerular Filtration Rate > 60, BUN/Creatinine Ratio 10, Glucose Level 398H, Calcium Level 8.6, Corrected Calcium 9.2, Magnesium Level 1.4L, Total Bilirubin 0.3, Aspartate Amino Transf (AST/SGOT) 22, Alanine Aminotransferase (ALT/SGPT) 18, Alkaline Phosphatase 145H, Total Protein 6.2L, Albumin 3.2, Triglycerides Level 102, Cholesterol Level 108, LDL Cholesterol Direct 61, VLDL Cholesterol 20, HDL Cholesterol 29L, Thyroid Stimulating Hormone (TSH) 1.24 08/19/18 11:51: Glucometer 458*H Patient resulted labs reviewed. Pending Labs Discussion & Recommendations Discharge Planning: <30 minutes discharge planning Discharge Home Medications: Active Scripts Active Hydrocodone/Acetaminophen 5/325mg Tablet (Acetaminophen/Hydrocodone Bitart) 1 Tab Tab 1 Tab PO Q4-6HR PRN MDD 10 Metoprolol Tartrate 25 Mg Tablet 25 Mg PO BID Reported Omeprazole 40 Mg Capsule.dr 40 Mg PO DAILY Atorvastatin Calcium 40 Mg Tablet 40 Mg PO HS Levemir Flextouch (Insulin Detemir) 100 Unit/1 Ml Insuln.pen 25 Units SC BID Amitriptyline HCl 50 Mg Tablet 50 Mg PO HS Gabapentin 600 Mg Tablet 600 Mg PO TID Metoclopramide HCl 10 Mg Tablet 10 Mg PO TID Novolog Flexpen (Insulin Aspart) 300 Units/3 Ml Solution 15 Units SC TIDAC Instructions to patient/family Please see electronic discharge instructions given to patient. Clinical Quality Measures DVT/VTE Risk/Contraindication: Risk Factor Score Per Nursin RFS Level Per Nursing on Admit: 2=Moderate Problem Qualifiers (1) Chest wall injury: Encounter type: initial encounter Qualified Codes: S29.9XXA - Unspecified injury of thorax, initial encounter (2) GERD (gastroesophageal reflux disease): Esophagitis presence: without esophagitis Qualified Codes: K21.9 - Gastro- esophageal reflux disease without esophagitis (3) Hyperlipemia: Hyperlipidemia type: mixed hyperlipidemia Qualified Codes: E78.2 - Mixed hyperlipidemia DAVID HERNÁNDEZ DO Aug 19, 2018 09:29
[2018-08-19 12:00] VITALS: BP 120/81
[2018-08-19] MEDS: MAGNESIUM 1 GM/100 ML IVPB 100 ML IV SCH ×3 (12:21→13:56)
[2018-08-19] MEDS ORDERED: FLU QUADRIvalent (5+ YOA) 2018-2019 (AFLURIA) 0.5 ML IM ONE (14:15)
--- NOTE | 2018-08-19 17:33 | Progress Note-Cardiology ---
Cardiology SOAP Progress Note Subjective: No cp or palp or syncope. Wishes to go home. States feels well Objective: I&O/Vital Signs 08/19/18 08/19/18 08/19/18 08/19/18 08:00 08:00 08:02 12:00 Temp 97.5 97.9 Pulse 96 85 Resp 18 18 B/P (MAP) 116/75 (89) 120/81 (94) Pulse Ox 94 88 96 O2 Delivery Room Air Room Air Room Air Room Air 08/19/18 14:00 B/P (MAP) 08/19/18 00:00 Intake Total 960 ml Output Total 350 ml Balance 610 ml Weight (Pounds): 234 Weight (Ounces): 0.0 Weight (Calculated Kilograms): 106.287570 Constitutional: AAO x 3, well-developed, well-nourished Respiratory: No accessory muscle use, No respiratory distress; chest expansion is symmetric, chest is bilaterally symmetric, other (fair air entry bilat; poor inspiratory effort) Cardiovascular: regular rate-rhythm; No JVD; S1 and S2 Gastrointestional: No tender; soft, round, audible bowel sounds Genital/Rectal: other (urinary catheter to DD with clear straw colored urine) Extremities: other (mod bilat LE swelling) Neurologic/Psychiatric: oriented x 3, grossly intact Skin: No rash, No ulcerations Results/Procedures: Labs Laboratory Tests 08/18/18 20:44: Glucometer 192H 08/19/18 04:20: White Blood Count 8.6, Red Blood Count 4.09L, Hemoglobin 12.1L, Hematocrit 36L, Mean Corpuscular Volume 89, Mean Corpuscular Hemoglobin 30, Mean Corpuscular Hemoglobin Concent 33, Red Cell Distribution Width 13.9, Platelet Count 188, Mean Platelet Volume 11.1H, Sodium Level 136, Potassium Level 4.2, Chloride Level 103, Carbon Dioxide Level 23, Anion Gap 10, Blood Urea Nitrogen 12, Creatinine 1.24, Estimat Glomerular Filtration Rate > 60, BUN/Creatinine Ratio 10, Glucose Level 398H, Calcium Level 8.6, Corrected Calcium 9.2, Magnesium Level 1.4L, Total Bilirubin 0.3, Aspartate Amino Transf (AST/SGOT) 22, Alanine Aminotransferase (ALT/SGPT) 18, Alkaline Phosphatase 145H, Total Protein 6.2L, Albumin 3.2, Triglycerides Level 102, Cholesterol Level 108, LDL Cholesterol Direct 61, VLDL Cholesterol 20, HDL Cholesterol 29L, Thyroid Stimulating Hormone (TSH) 1.24 08/19/18 11:51: Glucometer 458*H Laboratory Tests 08/17/18 19:15 08/18/18 08:35 08/19/18 04:20 A/P: Assessment: Near-syncopal episode of undetermined etiology No evidence of acute UT. Elevated troponin T at [facility] ED, but Trop I at this facility has been WNL Echo of 08/18/18: LVEF 60-65%, grade 1 stevenson dysfunction GERD Hep C (+) for which he reports he has had tx DM 2 - IDDM Chronic joint pain Renal insufficiency - likely chronic d/t diabetic nephropathy Bilat LE swelling Plan: Does not wish to stay in the hosp for any more testing Wishes to go home Does agree to get an Event Monitor as an outpt and to continue with outpt card f /u Advised to return to ER for any recurrence of symptoms or new symptoms DELANEY GALEAS MD FACP FACC CCDS Aug 19, 2018 17:33
== END 2018-08-19 14:30 | disposition home or self-care (01) | DRG 312 ==
LOC: EDUNIT# 18:01 → ER FS 18:03 → ICU 21:30 → 4TH 08-18 14:00
PROVIDERS: ADMIT Internal Medicine; ATTEND Internal Medicine
DX: R55 Syncope and collapse (principal); I95.1 Orthostatic hypotension; S29.9XXA Unspecified injury of thorax, initial encounter; R79.89 Other specified abnormal findings of blood chemistry; R79.1 Abnormal coagulation profile; E86.0 Dehydration; E11.65 Type 2 diabetes mellitus with hyperglycemia; R00.0 Tachycardia, unspecified; R09.02 Hypoxemia; E11.40 Type 2 diabetes mellitus with diabetic neuropathy, unspecified; E11.21 Type 2 diabetes mellitus with diabetic nephropathy; N28.9 Disorder of kidney and ureter, unspecified; M79.89 Other specified soft tissue disorders; M54.9 Dorsalgia, unspecified; M25.572 Pain in left ankle and joints of left foot; I10 Essential (primary) hypertension; K21.9 Gastro-esophageal reflux disease without esophagitis; E78.2 Mixed hyperlipidemia; F17.200 Nicotine dependence, unspecified, uncomplicated; W18.39XA Other fall on same level, initial encounter; Y92.002 Bathroom of unspecified non-institutional (private) residence as the place of occurrence of the external cause; Z79.4 Long term (current) use of insulin; Z86.19 Personal history of other infectious and parasitic diseases
CPT/HCPCS: 36415; 71100; 74176; 78582; 80048; 80053; 80061; 82962; 83036; 83735; 84443; 84484; 85025; 85027; 85379; 85730; 93005; 93306; 94640; 94760; 96365; 96375; 96376

== ENCOUNTER 2018-08-19 14:33 | Outpatient (RCR) | payer MEDICARE ==
[~2018-08-19 14:33] MED LIST: ACHD5005 PO; AMIT50TA3 PO; ATOR40TA70 PO; GBPN600T PO; INSU100I14 SC; INSU100I29 SC; INSU100V6; METO-333 PO; METO10TA3 PO; OMEP40CA36 PO
--- NOTE | 2018-08-26 14:21 | Physician Query Clarification ---
PQ-Link Manifestation-Etiology Admission/Discharge Admission Date: Discharge Date: The medical record reflects the following clinical scenario: History/Risk Factors: Dehydration, poorly controlled Diabetes with neuropathy Clinical Findings: LUQ pain d/t fall against sink, normal CT scan, Lung scan, rib xray Treatment: IV Fentanyl, orthostatic v/s, telemetry, echocardiogram, event monitor as outpatient Question: Can you specify if the syncope is due to/associated with orthostatic hypotension? Please document a response below PHYSICIAN RESPONSE Manifestation due to/assoic: Clinically undetermined In responding to this query, please exercise your independent professional judgment. The purpose of this communication is to more accurately reflect the complexity of your patients condition. The fact that a question is asked does not imply that any particular answer is desired or expected. Thank you for your timely response to this clarification. Requestors name: Sharron THIS PHYSICIAN QUERY FORM IS A PERMANENT PART OF THE MEDICAL RECORD SHARRON THORPE Aug 26, 2018 14:21 DAVID HERNÁNDEZ DO Aug 27, 2018 09:16
== END 2018-11-17 | disposition home or self-care (01) ==
LOC: CARD 14:33
PROVIDERS: ATTEND Nurse Practitioner Family
DX: R55 Syncope and collapse (principal)

== ENCOUNTER → 2018-10-18 | Outpatient (CLI) | payer MEDICARE | LOC: LAB FS 09:50 | PROVIDERS: ATTEND Pediatrics | DX: E11.40 Type 2 diabetes mellitus with diabetic neuropathy, unspecified (principal) | CPT/HCPCS: 36415; 83036 ==

== ENCOUNTER → 2019-06-03 | Outpatient (CLI) | payer MEDICARE ==
[2019-06-03 14:41] LABS: BUN/CREATININE RATIO 17; CALCIUM 9.3 MG/DL (8.5-10.1); CARBON DIOXIDE 26 MMOL/L (21-32); CHLORIDE 97 MMOL/L (98-107); CREATININE SERUM 0.93 MG/DL (0.60-1.30); GFR ESTIMATED > 60; GLUCOSE 397 MG/DL (70-105); POTASSIUM 4.6 MMOL/L (3.6-5.0); SODIUM 137 MMOL/L (135-145)
== END ==
LOC: LAB FS 13:48
PROVIDERS: ATTEND Pediatrics
DX: R79.89 Other specified abnormal findings of blood chemistry (principal)
CPT/HCPCS: 36415; 80048

== ENCOUNTER 2019-07-31 19:27 | Emergency (ER) | payer MEDICARE ==
[~2019-07-31] VITALS: Ht 175 cm; Wt 100.0 kg
[~2019-07-31 19:27] MED LIST changes: +OMEP40CA27 PO; -OMEP40CA36 PO
[2019-07-31] MEDS ORDERED: ONDANSETRON 4 MG/2 ML (SDV) Z0FRAN IVP ONE ×2 (19:45→20:30)
[2019-07-31 19:54] LABS: BASOPHILS % (AUTO) 0 % (0-10); EOSINOPHILS % (AUTO) 0 % (0-10); HEMATOCRIT 41 % (40-54); LYMPHOCYTES # (AUTO) 1.3 X 10^3 (1.0-4.0); LYMPHOCYTES % (AUTO) 11 % (12-44); MEAN CORPUSCULAR HEMOGLOBIN 30 PG (25-34); MEAN CORPUSCULAR HGB CONC 35 G/DL (32-36); MEAN CORPUSCULAR VOLUME 86 FL (80-99); MEAN PLATELET VOLUME 10.8 FL (7.4-10.4); MONOCYTES # (AUTO) 0.7 X 10^3 (0.0-1.0); MONOCYTES % (AUTO) 6 % (0-12); NEUTROPHILS # (AUTO) 9.2 X 10^3 (1.8-7.8); NEUTROPHILS % (AUTO) 83 % (42-75); PLATELET COUNT 211 10^3/uL (130-400); RED CELL DISTRIBUTION WIDTH 12.8 % (10.0-14.5); WHITE BLOOD COUNT 11.1 10^3/uL (4.3-11.0)
[2019-07-31] MEDS: NS IV 1000 ML 1,000 ML IV SCH ×3 (19:54→22:00)
--- NOTE | 2019-07-31 20:00 | NUR ---
20GA IV INSERTED INTO LEFT A/C
[2019-07-31 20:05] LABS: INR 1.1 (0.8-1.4); PROTHROMBIN TIME PATIENT 14.2 SEC (12.2-14.7)
[2019-07-31] MEDS ORDERED: SODIUM BICARB 8.4% 50 MEQ/50 ML VIAL ONE (20:15)
[2019-07-31 20:16] LABS: ALANINE AMINOTRANSFERASE 37 U/L (0-55); ALBUMIN 3.9 GM/DL (3.2-4.5); ALKALINE PHOSPHATASE 203 U/L (40-136); AMYLASE 66 U/L (25-125); BILIRUBIN,TOTAL 1.1 MG/DL (0.1-1.0); BUN/CREATININE RATIO 18; CALCIUM 9.8 MG/DL (8.5-10.1); CARBON DIOXIDE 17 MMOL/L (21-32); CHLORIDE 92 MMOL/L (98-107); CREATININE SERUM 1.32 MG/DL (0.60-1.30); GFR ESTIMATED > 60; LIPASE < 4 U/L (8-78); MAGNESIUM 1.7 MG/DL (1.6-2.4); POTASSIUM 4.2 MMOL/L (3.6-5.0); SALICYLATE < 5.0 MG/DL (5.0-20.0); SODIUM 134 MMOL/L (135-145)
[2019-07-31 20:18] LABS: ACETAMINOPHEN < 10 UG/ML (10-30); GLUCOSE 477 MG/DL (70-105)
--- NOTE | 2019-07-31 20:24 | Diagnostic Imaging Report ---
INDICATION: Vomiting blood. Frontal chest obtained at 0816 p.m. There is no prior study for comparison. Heart is normal in size. Mediastinal silhouette appears unremarkable. There is some linear atelectatic change or scarring in both lung bases, left greater than right. There is no consolidation or pneumothorax or pleural fluid. IMPRESSION: There is some linear scarring or atelectasis in the lung bases on both sides, left worse than right. There is no consolidation or pleural fluid. Dictated by: Dictated on workstation # [id number]
[2019-07-31] MEDS ORDERED: SODIUM BICARB 8.4% 50 MEQ/50 ML VIAL IV ONE (20:30)
[2019-07-31] MEDS ORDERED: SCOPOLAMINE 1.5 MG (TRANSDERM-SCOP) PATCH TD ONE (20:30)
[2019-07-31] MEDS ORDERED: inSUlin (REGULAR) HUMAN 1 UNIT/0.01 ML (CHARGE PER UNIT) IV ONE (20:45)
[2019-07-31] MEDS ORDERED: inSUlin REGULAR TPN/DRIP ONLY 250 UNITS in NORMAL SALINE 250 ML IV SCH (20:45)
[2019-07-31] MEDS ORDERED: PANTOPRAZOLE 40 MG (PROTONIX) VIAL IV ONE (20:45)
[2019-07-31 21:11] LABS: BILIRUBIN,URINE NEGATIVE (NEGATIVE); CLARITY,URINE CLEAR; COLOR,URINE YELLOW; GLUCOSE, URINE (UA) 3+ (NEGATIVE); KETONES,URINE 3+ (NEGATIVE); LEUKOCYTE ESTERASE ,URINE NEGATIVE (NEGATIVE); NITRITE,URINE NEGATIVE (NEGATIVE); PROTEIN,URINE 3+ (NEGATIVE)
[2019-07-31] MEDS ORDERED: inSUlin (REGULAR) HUMAN 1 UNIT/0.01 ML (CHARGE PER UNIT) ONE (21:12)
[2019-07-31] MEDS ORDERED: NORMAL SALINE 250 ML ONE (21:12)
[2019-07-31 21:26] LABS: ABG BASE EXCESS -6.8 MMOL/L (-2.5-2.5); ABG OXYGEN SATURATION 99 % (94-100); ABG PH 7.59 (7.37-7.43); ABG PO2 92 MMHG (79-93); ABG TCO2 15.5 MMOL/L (21.0-31.0)
[2019-07-31 21:27] LABS: ABG PCO2 16 MMHG (35-45); ALLENS TEST POSITIVE; INSPIRED O2 ROOM AIR; PATIENT TEMP 97.6; VENTILATOR NO
[2019-07-31 21:27] LABS: AMPHETAMINE SCREEN, URINE NEGATIVE (NEGATIVE); BARBITURATE SCREEN URINE NEGATIVE (NEGATIVE); BENZODIAZEPINES SCREEN URINE NEGATIVE (NEGATIVE); CANNABINOID SCREEN, URINE NEGATIVE (NEGATIVE); COCAINE SCREEN URINE NEGATIVE (NEGATIVE); METHADONE STAT NEGATIVE (NEGATIVE); METHAMPHETAMINE SCREEN URINE S NEGATIVE (NEGATIVE); OPIATE SCREEN URINE NEGATIVE (NEGATIVE); OXYCODONE STAT NEGATIVE (NEGATIVE); PROPOXYPHENE STAT NEGATIVE (NEGATIVE); TRICYCLIC ANTIDEPRESSANTS SCRE POSITIVE (NEGATIVE)
[2019-07-31 21:45] LABS: AMORPHOUS SEDIMENT,UR FEW AMOR URATES /LPF; BACTERIA,URINE FEW /HPF; WBC,URINE 0-2 /HPF
[2019-07-31 22:24] LABS: ABG BASE EXCESS -5.2 MMOL/L (-2.5-2.5); ABG OXYGEN SATURATION 97 % (94-100); ABG PCO2 39 MMHG (35-45); ABG PO2 95 MMHG (79-93)
[2019-07-31 22:25] LABS: ABG PH 7.32 (7.37-7.43); ALLENS TEST POSITIVE; INSPIRED O2 2L; PATIENT TEMP 97.9; VENTILATOR NO
[2019-07-31 22:38] VITALS: BP 113/76
--- NOTE | 2019-08-08 06:53 | ED General ---
General Chief Complaint: Glucose Problems Stated Complaint: VOMITING BLOOD, NPO X 3DAYS, DM,CONFUSION Nursing Triage Note: PT PRESENTS TO ED ROOM SIX WITH FAMILY VIA W/C C/O NV AND ALTERED LOC. PT'S SON STATES THAT HE ARRIVED AT PT'S HOME AND FOUND HIM TO BE ALTERED. PT STATES HE HAS NOT TAKEN ANY OF HIS DIABETIC MEDS OR INSULIN IN THE LAST THREE DAYS AND HAS NOT BEEN CHECCKING HIS BLOOD GLUCOSE Nursing Sepsis Screen: Possible Severe Sepsis Risk Source of Information: Patient (VERY LIMITED HISTORIAN, MINIMALLY VERBAL. ), Family (SON), Old Records History of Present Illness Date Seen by Provider: Jul 31, 2019 Time Seen by Provider: 19:36 Initial Comments PT ARRIVES VIA POV FROM HOME, WITH SON SON STATES THAT PT "IS NOT ACTING RIGHT" SINCE AT LEAST THURSDAY --SON IS IN SCHOOL ALL WEEK, BUT TALKS TO PT EVERY DAY. SON STATES THAT PT LIVES WITH HIS MOTHER ( SON'S GRANDMOTHER) SON REPORTS THAT PT HAS HAD NAUSEA AND VOMITING FOR THE LAST 2-3 DAYS, AND HAS BEEN VOMITING BLOOD--STATES HE HAS VOMITED AT LEAST 10 TIMES TODAY, AND HAS HAD SOME DIARRHEA, UNKNOWN AMOUNT. UNKNOWN IF HE HAS HAD BLACK/BLOODY/TARRY STOOLS SON STATES THAT PT HAS NOT TAKEN HIS INSULIN FOR AT LEAST 3 DAYS, THAT HE KNOWS OF. SON STATES THAT PT HAS C/O EPIGASTRIC PAIN FOR AT LEAST THE LAST 3 DAYS PT HAS HAD URINARY FREQUENCY. SON STATES THAT HE HAS BEEN DRINKING ALOT OF WATER ALL DAY EVERY DAY, FOR THE LAST 3 DAYS, OTHERWISE HE HAS BEEN SLEEPING ALL THE TIME SINCE AT LEAST Thursday07/27/19 PT HAS HAD SUBJECTIVE FEVER PT HAS NOT TAKEN ANY MEDICATIONS FOR AT LEAST THE LAST 3 DAYS. PCP: DR. RICHARDSON-- YESENIA KUMAR. Allergies and Home Medications Allergies Coded Allergies: No Known Drug Allergies (Unverified , 08/17/18) Home Medications Amitriptyline HCl 50 Mg Tablet, 50 MG PO HS, (Reported) Atorvastatin Calcium 40 Mg Tablet, 40 MG PO HS, (Reported) Gabapentin 600 Mg Tablet, 600 MG PO TID, (Reported) Hydrocodone Bit/Acetaminophen 1 Tab Tab, 1 TAB PO Q4-6HR PRN for PAIN-MODERATE Prescribed by: DAVID HERNÁNDEZ on 08/19/18 0928 Insulin Aspart 300 Units/3 Ml Solution, 15 UNITS SC TIDAC, (Reported) Insulin Detemir 100 Unit/1 Ml Insuln.pen, 25 UNITS SC BID, (Reported) Metoclopramide HCl 10 Mg Tablet, 10 MG PO TID, (Reported) Metoprolol Tartrate 25 Mg Tablet, 25 MG PO BID Prescribed by: DAVID HERNÁNDEZ on 08/19/18 0928 Omeprazole 40 Mg Capsule.dr, 40 MG PO DAILY, (Reported) Patient Home Medication List Home Medication List Reviewed: Yes Review of Systems Review of Systems Constitutional: see HPI, fever, malaise, weakness Respiratory: No short of breath Cardiovascular: No chest pain Gastrointestinal: see HPI, abdominal pain, diarrhea, loss of appetite, nausea, vomiting Genitourinary: frequency Psychiatric/Neurological: See HPI Past [id number] Hx Past Med/Social Hx: Reviewed and Corrections made Patient Social History Alcohol Use: Denies Use Recreational Drug Use: Yes (HX OF COCAINE USE, THC--DENIES IV USE) Drug of Choice: HX OF COCAINE, THC USE. DENIES IV USE Smoking Status: Former Smoker Type Used: Cigarettes, Smokeless Tobacco 2nd Hand Smoke Exposure: No Recent Foreign Travel: No Contact w/Someone Who Travel: No Recent Infectious Disease Expo: No Recent Hopitalizations: No Physical Abuse: No Sexual Abuse: No Mistreated: No Fear: No Immunizations Up To Date Tetanus Booster (TDap): Unknown PED Vaccines UTD: Yes Seasonal Allergies Seasonal Allergies: No Past Medical History Surgeries: Yes (Rods placed in leg and back, fatty abdominal tumor removed.) Gallbladder, Orthopedic Respiratory: No Cardiac: Yes Chronic Edema/Swelling, High Cholesterol, Hypertension Neurological: Yes Neuropathy Genitourinary: No Gastrointestinal: Yes (GASTROPARESIS ???; S/P CHOLECYSTECTOMY; HEPATITIS C--S/P TREATMENT) Gastroesophageal Reflux, Hepatitis, Gall Bladder Disease Musculoskeletal: Yes (RODS IN BACK AND FEMUR; CHRONIC JOINT PAIN) Back Injury, Chronic Back Pain Endocrine: Yes (OBESE; NON-COMPLIANCE WITH DM-DOES NOT CHECK BLOOD SUGAR OR FOLLOW DIET. ) Diabetes, Insulin dep HEENT: No Cancer: No Psychosocial: No Integumentary: No Blood Disorders: No Adverse Reaction/Blood Tranf: No Physical Exam Vital Signs Capillary Refill : Less Than 3 Seconds Height, Weight, BMI Height: 5'6.00" Weight: 234lbs. 0.0oz. 106.994705ac; 32.00 BMI Method:Stated General Appearance: Obese, Other (HYPERVENTILATING, LETHARGIC, ODOR OF KETONES. VERY SLOW MENTATION. PALE ( PT IS BLACK), VERY CLAMMY ) HEENT: Other (POOR DENTITION. ORAL MUCOSA VERY DRY) Respiratory: Normal Breath Sounds, Other (HYPERVENTILATING) Cardiovascular: No Murmur, Tachycardia Gastrointestinal: Soft, Tenderness (EPIGASTRIC) Neurologic/Psychiatric: Other (AWAKE, BUT LETHARGIC/DROWSY, VERY SLOW MENTATION AND SOMEWHAT CONFUSED. MOVES ALL EXTREMITIES, BUT IS GENERALLY VERY WEAK) Skin: Cool, Damp, Pallor Progress/Results/Core Measures Suspected Sepsis Recent Fever Within 48 Hours: No Infection Criteria Present: Suspected New Infection New/Unexplained Altered Menta: Yes Sepsis Screen: Possible Severe Sepsis Risk SIRS Temperature: Pulse: 110 Respiratory Rate: 20 Blood Pressure 113 /76 Mean: 115 Results/Orders Vital Signs/I&O Capillary Refill : Less Than 3 Seconds Blood Pressure Mean: 115 Point of Care Testing Finger Stick Blood Glucose: 290 Blood Glucose Action Taken: provider notified Progress Note : Progress Note GIVEN IV FLUIDS, ANTIEMETICS, INSULIN DRIP NO DETERIORATION IN PT'S CONDITION DURING ER STAY. NO FURTHER VOMITED AFTER ZOFRAN, SCOPOLAMINE. BP DOWN AT TIME OF TRANSFER. ECG Initial ECG Impression Date: Jul 31, 2019 Initial ECG Impression Time: 19:53 Initial ECG Rate: 104 Initial ECG Rhythm: S.Tach Diagnostic Imaging Comments CXR--BIBASILAR ATELECTASIS/SCARRING--LEFT > RIGHT. PER RADIOLOGIST REPORT AT 2031 Reviewed: Reviewed by Me Departure Communication (Admissions) NO BEDS AVAILABLE HERE, FACILITY [facility] [address]--CALLED [facility]. 2147--SPOKE WITH DR. POWER BAEZA, ACCEPTS PT FOR ADMIT/TRANSFER. NO ADDITIONAL RECOMMENDATIONS AT THIS TIME Impression Primary Impression: Uncontrolled diabetes mellitus Additional Impressions: HTN (hypertension) NAUSEA AND VOMITNG WITH HEMATEMESIS Epigastric pain Altered mental status MILD HYPOXIA DKA (diabetic ketoacidoses) RENAL INSUFFICIENCY/DEHYDRATION Disposition: XF SHT-TRM HOSP Condition: Improved Transfer Transfer Reason: Diversion Transfer Facility: [facility] Method of Transfer: EMS Departure-Patient Inst. Referrals: RACQUEL RICHARDSON MD (PCP) Primary Care Physician KELECHI FLOREZ DO Aug 08, 2019 06:53
--- OUTSIDE RECORDS SUMMARY | 2019-08-09 10:19 | XMS REPORT | Continuity of Care Document ---
Author Organization Unknown Address Unknown Phone Unavailable Allergies Active Description Code Type Severity Reaction Onset Reported/Identified Relationship to Patient Clinical Status Yes No Known Drug Allergies [id number] Drug Allergy Unknown N/A 08/17/2018 Medications There is no data. Problems Date Dx Coded Attending Type Code Diagnosis Diagnosed By 08/19/2018 ОЛЕГ KNOX MD, Ot E11.21 TYPE 2 DIABETES MELLITUS WITH DIABETIC N 08/19/2018 ОЛЕГ KNOX MD Ot E11.40 TYPE 2 DIABETES MELLITUS WITH DIABETIC N 08/19/2018 ОЛЕГ KNOX MD Ot E11.65 TYPE 2 DIABETES MELLITUS WITH HYPERGLYCE 08/19/2018 ОЛЕГ KNOX MD Ot E78 .2 MIXED HYPERLIPIDEMIA 08/19/2018 ОЛЕГ KNOX MD Ot E86 .0 DEHYDRATION 08/19/2018 ОЛЕГ KNOX MD Ot F17.200 NICOTINE DEPENDENCE, UNSPECIFIED, UNCOMP 08/19/2018 ОЛЕГ KNOX MD Ot I10 ESSENTIAL (PRIMARY) HYPERTENSION 08/19/2018 ОЛЕГ KNOX MD Ot I95 .1 ORTHOSTATIC HYPOTENSION 08/19/2018 ОЛЕГ KNOX MD Ot K21 .9 GASTRO-ESOPHAGEAL REFLUX DISEASE WITHOUT 08/19/2018 ОЛЕГ KNOX MD Ot M25.572 PAIN IN LEFT ANKLE AND JOINTS OF LEFT FO 08/19/2018 ОЛЕГ KNOX MD Ot M54 .9 DORSALGIA, UNSPECIFIED 08/19/2018 ОЛЕГ KNOX MD Ot M79.89 OTHER SPECIFIED SOFT TISSUE DISORDERS 08/19/2018 ОЛЕГ KNOX MD Ot N28 .9 DISORDER OF KIDNEY AND URETER, UNSPECIFI 08/19/2018 ОЛЕГ KNOX MD Ot R00 .0 TACHYCARDIA, UNSPECIFIED 08/19/2018 ОЛЕГ KNOX MD Ot R09.02 HYPOXEMIA 08/19/2018 ОЛЕГ KNOX MD Ot R79 .1 ABNORMAL COAGULATION PROFILE 08/19/2018 ОЛЕГ KNOX MD Ot R79.89 OTHER SPECIFIED ABNORMAL FINDINGS OF BLO 08/19/2018 ОЛЕГ KNOX MD Ot S29.9XXA UNSPECIFIED INJURY OF THORAX, INITIAL EN 08/19/2018 ОЛЕГ KNOX MD, Ot W18.39XA OTHER FALL ON SAME LEVEL, INITIAL ENCOUN 08/19/2018 ОЛЕГ KNOX MD Ot Y92.002 BATHRM OF [facility] NON-INSTITUT RESDNCE SNGL 08/19/2018 ОЛЕГ KNOX MD, Ot Z79 .4 MCC (CURRENT) USE OF INSULIN 08/19/2018 ОЛЕГ KNOX MD, Ot Z86.19 PERSONAL HISTORY OF OTHER INFECTIOUS AND 08/19/2018 ОЛЕГ KNOX MD, Ot E11.21 TYPE 2 DIABETES MELLITUS WITH DIABETIC N 08/19/2018 ОЛЕГ KNOX MD, Ot E11.40 TYPE 2 DIABETES MELLITUS WITH DIABETIC N 08/19/2018 ОЛЕГ KNOX MD, Ot E11.65 TYPE 2 DIABETES MELLITUS WITH HYPERGLYCE 08/19/2018 ОЛЕГ KNOX MD Ot E78 .2 MIXED HYPERLIPIDEMIA 08/19/2018 ОЛЕГ KNOX MD Ot E86 .0 DEHYDRATION 08/19/2018 ОЛЕГ KNOX MD Ot F17.200 NICOTINE DEPENDENCE, UNSPECIFIED, UNCOMP 08/19/2018 ОЛЕГ KNOX MD Ot I10 ESSENTIAL (PRIMARY) HYPERTENSION 08/19/2018 ОЛЕГ KNOX MD Ot I95 .1 ORTHOSTATIC HYPOTENSION 08/19/2018 ОЛЕГ KNOX MD Ot K21 .9 GASTRO-ESOPHAGEAL REFLUX DISEASE WITHOUT 08/19/2018 ОЛЕГ KNOX MD Ot M25.572 PAIN IN LEFT ANKLE AND JOINTS OF LEFT FO 08/19/2018 ОЛЕГ KNOX MD Ot M54 .9 DORSALGIA, UNSPECIFIED 08/19/2018 ОЛЕГ KNOX MD Ot M79.89 OTHER SPECIFIED SOFT TISSUE DISORDERS 08/19/2018 ОЛЕГ KNOX MD Ot N28 .9 DISORDER OF KIDNEY AND URETER, UNSPECIFI 08/19/2018 ОЛЕГ KNOX MD Ot R00 .0 TACHYCARDIA, UNSPECIFIED 08/19/2018 ОЛЕГ KNOX MD Ot R09.02 HYPOXEMIA 08/19/2018 ОЛЕГ KNOX MD Ot R79 .1 ABNORMAL COAGULATION PROFILE 08/19/2018 ОЛЕГ KNOX MD Ot R79.89 OTHER SPECIFIED ABNORMAL FINDINGS OF BLO 08/19/2018 ОЛЕГ KNOX MD, Ot S29.9XXA UNSPECIFIED INJURY OF THORAX, INITIAL EN 08/19/2018 ОЛЕГ KNOX MD Ot W18.39XA OTHER FALL ON SAME LEVEL, INITIAL ENCOUN 08/19/2018 ОЛЕГ KNOX MD, Ot Y92.002 BATHRM OF [facility] NON-INSTITUT RESDNCE SNGL 08/19/2018 ОЛЕГ KNOX MD, Ot 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 08/19/2018 ОЛЕГ KNOX MD, Ot Z86.19 PERSONAL HISTORY OF OTHER INFECTIOUS AND 08/19/2018 ОЛЕГ KNOX MD, Ot E11.21 TYPE 2 DIABETES MELLITUS WITH DIABETIC N 08/19/2018 ОЛЕГ KNOX MD, Ot E11.40 TYPE 2 DIABETES MELLITUS WITH DIABETIC N 08/19/2018 ОЛЕГ KNOX MD, Ot E11.65 TYPE 2 DIABETES MELLITUS WITH HYPERGLYCE 08/19/2018 ОЛЕГ KNOX MD Ot E78 .2 MIXED HYPERLIPIDEMIA 08/19/2018 ОЛЕГ KNOX MD Ot E86 .0 DEHYDRATION 08/19/2018 ОЛЕГ KNOX MD Ot F17.200 NICOTINE DEPENDENCE, UNSPECIFIED, UNCOMP 08/19/2018 ОЛЕГ KNOX MD Ot I10 ESSENTIAL (PRIMARY) HYPERTENSION 08/19/2018 ОЛЕГ KNOX MD Ot I95 .1 ORTHOSTATIC HYPOTENSION 08/19/2018 ОЛЕГ KNOX MD Ot K21 .9 GASTRO-ESOPHAGEAL REFLUX DISEASE WITHOUT 08/19/2018 ОЛЕГ KNOX MD Ot M25.572 PAIN IN LEFT ANKLE AND JOINTS OF LEFT FO 08/19/2018 ОЛЕГ KNOX MD Ot M54 .9 DORSALGIA, UNSPECIFIED 08/19/2018 ОЛЕГ KNOX MD Ot M79.89 OTHER SPECIFIED SOFT TISSUE DISORDERS 08/19/2018 ОЛЕГ KNOX MD Ot N28 .9 DISORDER OF KIDNEY AND URETER, UNSPECIFI 08/19/2018 ОЛЕГ KNOX MD Ot R00 .0 TACHYCARDIA, UNSPECIFIED 08/19/2018 ОЛЕГ KNOX MD Ot R09.02 HYPOXEMIA 08/19/2018 ОЛЕГ KNOX MD Ot R55 SYNCOPE AND COLLAPSE 08/19/2018 ОЛЕГ KNOX MD Ot R79 .1 ABNORMAL COAGULATION PROFILE 08/19/2018 ОЛЕГ KNOX MD, Ot R79.89 OTHER SPECIFIED ABNORMAL FINDINGS OF BLO 08/19/2018 ОЛЕГ KNOX MD, Ot S29.9XXA UNSPECIFIED INJURY OF THORAX, INITIAL EN 08/19/2018 ОЛЕГ KNXO MD, Ot W18.39XA OTHER FALL ON SAME LEVEL, INITIAL ENCOUN 08/19/2018 ОЛЕГ KNOX MD, Ot Y92.002 BATHRM OF [facility] NON-INSTITUT RESDNCE SNGL 08/19/2018 ОЛЕГ KNOX MD, Ot 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 08/19/2018 ОЛЕГ KNOX MD, Ot Z86.19 PERSONAL HISTORY OF OTHER INFECTIOUS AND 08/20/2018 MEIR RAMIREZ Ot R 55 SYNCOPE AND COLLAPSE 10/18/2018 MEIR RAMIREZ Ot R 55 SYNCOPE AND COLLAPSE 10/20/2018 RACQUEL RICHARDSON MD, Ot E11.40 TYPE 2 DIABETES MELLITUS WITH DIABETIC N 11/17/2018 MEIR RAMIREZ Ot R 55 SYNCOPE AND COLLAPSE 01/19/2019 RACQUEL RICHARDSON MD, Ot E11.40 TYPE 2 DIABETES MELLITUS WITH DIABETIC N 06/06/2019 RACQUEL RICHARDSON MD, Ot R79.89 OTHER SPECIFIED ABNORMAL FINDINGS OF BLO 06/09/2019 RACQUEL RICHARDSON MD, Ot R79.89 OTHER SPECIFIED ABNORMAL FINDINGS OF BLO 06/22/2019 RACQUEL RICHARDSON MD, Ot R79.89 OTHER SPECIFIED ABNORMAL FINDINGS OF BLO 07/31/2019 RACQUEL RICHARDSON MD, Ot E11.40 TYPE 2 DIABETES MELLITUS WITH DIABETIC N 07/31/2019 MEIR RAMIREZ Ot R 55 SYNCOPE AND COLLAPSE 07/31/2019 RACQUEL RICHARDSON MD, Ot E11.40 TYPE 2 DIABETES MELLITUS WITH DIABETIC N 07/31/2019 RACQUEL RICHARDSON MD, Ot R79.89 OTHER SPECIFIED ABNORMAL FINDINGS OF BLO 07/31/2019 KELECHI FLOREZ DO Ot R11.2 NAUSEA WITH VOMITING, UNSPECIFIED Procedures There is no data. Results Test Result Range Automated blood complete blood count (he mogram) panel - 08/17/18 19:15 Blood leukocytes automated count (number/volume) 10.8 10*3/uL 4.3-11.0 Blood erythrocytes automated count (number/volume) 4.60 10*6/uL 4.35-5.85 Venous blood hemoglobin measurement (mass/volume) 13.8 g/dL 13.3-17.7 Blood hematocrit (volume fraction) 41 % 40-54 Automated erythrocyte mean corpuscular volume 90 [ foz_us] 80-99 Automated erythrocyte mean corpuscular h emoglobin (mass per erythrocyte) 30 pg 25-34 Automated erythrocyte mean corpuscular h emoglobin concentration measurement (mass/volume) 33 g/dL 32-36 Automated erythrocyte distribution width ratio 13. 7 % 10.0- 14.5 Automated blood platelet count (count/volume) 202 10*3/uL 130-400 Automated blood platelet mean volume measurement 11.7 [foz_us] 7.4-10.4 Whole blood basic metabolic panel - 10/31 19:15 Serum or plasma sodium measurement (moles/volume) 132 mmol/L 135-145 Serum or plasma potassium measurement (moles/volume) 5.0 mmol/L 3.6-5.0 Serum or plasma chloride measurement (moles/volume) 93 mmol/L 98-107 Carbon dioxide 22 mmol/L 21-32 Serum or plasma anion gap determination (moles/volume) 17 mmol/L 5-14 Serum or plasma urea nitrogen measurement (mass/volume ) 20 mg/dL 7-18 Serum or plasma creatinine measurement (mass/volume) 1.72 mg/dL 0.60-1.30 Serum or plasma urea nitrogen/creatinine mass ratio 12 NRG Serum or plasma creatinine measurement w ith calculation of estimated glomerular filtration rate 50 NRG Serum or plasma glucose measurement (mass/volume) 542 mg/dL 70-105 Serum or plasma calcium measurement (mass/volume) 8.9 mg/dL 8.5-10.1 TROPONIN T - 08/17/18 19:15 TROPONIN T 34 % <=15 Fibrin D-dimer FEU measurement in platel et poor plasma (mass/volume) - 08/17/18 19:15 Fibrin D-dimer FEU measurement in platelet poor plasma (mass/volume) 1.92 ug/mL 0.00-0.49 Capillary blood glucose measurement by g lucometer (mass/volume) - 08/17/18 21:55 Capillary blood glucose measurement by glucometer (mas s/volume) 454 mg/dL 70-110 Capillary blood glucose measurement by g lucometer (mass/volume) - 08/18/18 00:27 Capillary blood glucose measurement by glucometer (mas s/volume) 373 mg/dL 70-110 Serum or plasma troponin i.cardiac measu rement (mass/volume) - 08/18/18 00:30 Serum or plasma troponin i.cardiac measurement (mass/v olume) < ng/mL <0.028 Activated partial thromboplastin time (a PTT) in platelet poor plasma bycoagulation assay - 08/18/18 00:30 Activated partial thromboplastin time (a PTT) in platelet poor plasma bycoagulation assay > s 24-35 Capillary blood glucose measurement by g lucometer (mass/volume) - 08/18/18 06:27 Capillary blood glucose measurement by glucometer (mas s/volume) 381 mg/dL 70-110 Complete blood count (CBC) with automate d white blood cell (WBC) differential - 08/18/18 08:35 Blood leukocytes automated count (number/volume) 6.5 10*3/uL 4.3-11.0 Blood erythrocytes automated count (number/volume) 4.30 10*6/uL 4.35-5.85 Venous blood hemoglobin measurement (mass/volume) 12.9 g/dL 13.3-17.7 Blood hematocrit (volume fraction) 38 % 40-54 Automated erythrocyte mean corpuscular volume 89 [ foz_us] 80-99 Automated erythrocyte mean corpuscular h emoglobin (mass per erythrocyte) 30 pg 25-34 Automated erythrocyte mean corpuscular h emoglobin concentration measurement (mass/volume) 34 g/dL 32-36 Automated erythrocyte distribution width ratio 13. 8 % 10.0- 14.5 Automated blood platelet count (count/volume) 181 10*3/uL 130-400 Automated blood platelet mean volume measurement 11.2 [foz_us] 7.4-10.4 Automated blood neutrophils/100 leukocytes 56 % 42-75 Automated blood lymphocytes/100 leukocytes 33 % 12-44 Blood monocytes/100 leukocytes 10 % 0-12 Automated blood eosinophils/100 leukocytes 1 % 0-10 Automated blood basophils/100 leukocytes 0 % 0-10 Blood neutrophils automated count (number/volume) 3.6 10*3 1.8-7.8 Blood lymphocytes automated count (number/volume) 2.1 10*3 1.0-4.0 Blood monocytes automated count (number/volume) 0. 7 10*3 0.0-1.0 Automated eosinophil count 0.1 10*3/uL 0 .0-0.3 Automated blood basophil count (count/volume) 0.0 10*3/uL 0.0-0.1 Activated partial thromboplastin time (a PTT) in platelet poor plasma bycoagulation assay - 08/18/18 08:35 Activated partial thromboplastin time (a PTT) in platelet poor plasma bycoagulation assay 85 s 24-35 Serum or plasma troponin i.cardiac measu rement (mass/volume) - 08/18/18 08:35 Serum or plasma troponin i.cardiac measurement (mass/v olume) < ng/mL <0.028 Comprehensive metabolic panel - 08/18/18 08:35 Serum or plasma sodium measurement (moles/volume) 136 mmol/L 135-145 Serum or plasma potassium measurement (moles/volume) 4.0 mmol/L 3.6-5.0 Serum or plasma chloride measurement (moles/volume) 104 mmol/L 98-107 Carbon dioxide 22 mmol/L 21-32 Serum or plasma anion gap determination (moles/volume) 10 mmol/L 5-14 Serum or plasma urea nitrogen measurement (mass/volume ) 16 mg/dL 7-18 Serum or plasma creatinine measurement (mass/volume) 1.42 mg/dL 0.60-1.30 Serum or plasma urea nitrogen/creatinine mass ratio 11 NRG Serum or plasma creatinine measurement w ith calculation of estimated glomerular filtration rate > NRG Serum or plasma glucose measurement (mass/volume) 386 mg/dL 70-105 Serum or plasma calcium measurement (mass/volume) 9.0 mg/dL 8.5-10.1 Serum or plasma total bilirubin measurement (mass/volu me) 0.3 mg/dL 0.1-1.0 Serum or plasma alkaline phosphatase jalyn surement (enzymatic activity/volume) 153 U/L 40-136 Serum or plasma aspartate aminotransfera se measurement (enzymatic activity/volume) 19 U/L 5-34 Serum or plasma alanine aminotransferase measurement (enzymatic activity/volume) 17 U/L 0-55 Serum or plasma protein measurement (mass/volume) 6.6 g/dL 6.4-8.2 Serum or plasma albumin measurement (mass/volume) 3.4 g/dL 3.2-4.5 CALCIUM CORRECTED 9.5 mg/dL 8.5-10.1 Hemoglobin A1c - 08/18/18 08:35 Blood hemoglobin A1C measurement (mass/volume) 14. 2 % 4.0- 5.6 MEAN BLOOD GLUCOSE 361 % <=126 Capillary blood glucose measurement by g lucometer (mass/volume) - 08/18/18 10:42 Capillary blood glucose measurement by glucometer (mas s/volume) 360 mg/dL 70-110 Capillary blood glucose measurement by g lucometer (mass/volume) - 08/18/18 17:23 Capillary blood glucose measurement by glucometer (mas s/volume) 397 mg/dL 70-110 Capillary blood glucose measurement by g lucometer (mass/volume) - 08/18/18 20:44 Capillary blood glucose measurement by glucometer (mas s/volume) 192 mg/dL 70-110 Automated blood complete blood count (he mogram) panel - 08/19/18 04:20 Blood leukocytes automated count (number/volume) 8.6 10*3/uL 4.3-11.0 Blood erythrocytes automated count (number/volume) 4.09 10*6/uL 4.35-5.85 Venous blood hemoglobin measurement (mass/volume) 12.1 g/dL 13.3-17.7 Blood hematocrit (volume fraction) 36 % 40-54 Automated erythrocyte mean corpuscular volume 89 [ foz_us] 80-99 Automated erythrocyte mean corpuscular h emoglobin (mass per erythrocyte) 30 pg 25-34 Automated erythrocyte mean corpuscular h emoglobin concentration measurement (mass/volume) 33 g/dL 32-36 Automated erythrocyte distribution width ratio 13. 9 % 10.0- 14.5 Automated blood platelet count (count/volume) 188 10*3/uL 130-400 Automated blood platelet mean volume measurement 11.1 [foz_us] 7.4-10.4 Comprehensive metabolic panel - 08/19/18 04:20 Serum or plasma sodium measurement (moles/volume) 136 mmol/L 135-145 Serum or plasma potassium measurement (moles/volume) 4.2 mmol/L 3.6-5.0 Serum or plasma chloride measurement (moles/volume) 103 mmol/L 98-107 Carbon dioxide 23 mmol/L 21-32 Serum or plasma anion gap determination (moles/volume) 10 mmol/L 5-14 Serum or plasma urea nitrogen measurement (mass/volume ) 12 mg/dL 7-18 Serum or plasma creatinine measurement (mass/volume) 1.24 mg/dL 0.60-1.30 Serum or plasma urea nitrogen/creatinine mass ratio 10 NRG Serum or plasma creatinine measurement w ith calculation of estimated glomerular filtration rate > NRG Serum or plasma glucose measurement (mass/volume) 398 mg/dL 70-105 Serum or plasma calcium measurement (mass/volume) 8.6 mg/dL 8.5-10.1 Serum or plasma total bilirubin measurement (mass/volu me) 0.3 mg/dL 0.1-1.0 Serum or plasma alkaline phosphatase jalyn surement (enzymatic activity/volume) 145 U/L 40-136 Serum or plasma aspartate aminotransfera se measurement (enzymatic activity/volume) 22 U/L 5-34 Serum or plasma alanine aminotransferase measurement (enzymatic activity/volume) 18 U/L 0-55 Serum or plasma protein measurement (mass/volume) 6.2 g/dL 6.4-8.2 Serum or plasma albumin measurement (mass/volume) 3.2 g/dL 3.2-4.5 CALCIUM CORRECTED 9.2 mg/dL 8.5-10.1 Magnesium - 08/19/18 04:20 Magnesium 1.4 mg/dL 1.8-2.4 Lipid 1996 panel - 08/19/18 04:20 Serum or plasma triglyceride measurement (mass/volume) 102 mg/dL <150 Serum or plasma cholesterol measurement (mass/volume) 108 mg/dL < 200 Serum or plasma cholesterol in HDL measurement (mass/v olume) 29 mg/dL 40-60 Cholesterol in LDL [mass/volume] in serum or plasma by direct assay 61 mg/dL 1-129 Serum or plasma cholesterol in VLDL measurement (mass/ volume) 20 mg/dL 5-40 THYROID STIMULATING HORMONE - 08/19/18 0 4:20 THYROID STIMULATING HORMONE 1.24 u[iU]/mL 0.35-4.94 Capillary blood glucose measurement by g lucometer (mass/volume) - 08/19/18 11:51 Capillary blood glucose measurement by glucometer (mas s/volume) 458 mg/dL 70-110 Hemoglobin A1c - 10/18/18 10:05 Blood hemoglobin A1C measurement (mass/volume) 14. 3 % 4.0- 5.6 MEAN BLOOD GLUCOSE 364 % <=126 Hemoglobin A1c measurement - 01/14/19 10 :47 Blood hemoglobin A1C measurement (mass/volume) 14. 1 % 4.0- 5.6 MEAN BLOOD GLUCOSE 358 % <=126 Whole blood basic metabolic panel - 05/16 14:00 Serum or plasma sodium measurement (moles/volume) 137 mmol/L 135-145 Serum or plasma potassium measurement (moles/volume) 4.6 mmol/L 3.6-5.0 Serum or plasma chloride measurement (moles/volume) 97 mmol/L 98-107 Carbon dioxide 26 mmol/L 21-32 Serum or plasma anion gap determination (moles/volume) 14 mmol/L 5-14 Serum or plasma urea nitrogen measurement (mass/volume ) 16 mg/dL 7-18 Serum or plasma creatinine measurement (mass/volume) 0.93 mg/dL 0.60-1.30 Serum or plasma urea nitrogen/creatinine mass ratio 17 NRG Serum or plasma creatinine measurement w ith calculation of estimated glomerular filtration rate > NRG Serum or plasma glucose measurement (mass/volume) 397 mg/dL 70-105 Serum or plasma calcium measurement (mass/volume) 9.3 mg/dL 8.5-10.1 Capillary blood glucose measurement by g lucometer (mass/volume) - 07/31/19 19:39 Capillary blood glucose measurement by glucometer (mas s/volume) 430 mg/dL 70-110 Complete blood count (CBC) with automate d white blood cell (WBC) differential - 07/31/19 19:48 Blood leukocytes automated count (number/volume) 11.1 10*3/uL 4.3-11.0 Blood erythrocytes automated count (number/volume) 4.74 10*6/uL 4.35-5.85 Venous blood hemoglobin measurement (mass/volume) 14.0 g/dL 13.3-17.7 Blood hematocrit (volume fraction) 41 % 40-54 Automated erythrocyte mean corpuscular volume 86 [ foz_us] 80-99 Automated erythrocyte mean corpuscular h emoglobin (mass per erythrocyte) 30 pg 25-34 Automated erythrocyte mean corpuscular h emoglobin concentration measurement (mass/volume) 35 g/dL 32-36 Automated erythrocyte distribution width ratio 12. 8 % 10.0- 14.5 Automated blood platelet count (count/volume) 211 10*3/uL 130-400 Automated blood platelet mean volume measurement 10.8 [foz_us] 7.4-10.4 Automated blood neutrophils/100 leukocytes 83 % 42-75 Automated blood lymphocytes/100 leukocytes 11 % 12-44 Blood monocytes/100 leukocytes 6 % 0-12 Automated blood eosinophils/100 leukocytes 0 % 0-10 Automated blood basophils/100 leukocytes 0 % 0-10 Blood neutrophils automated count (number/volume) 9.2 10*3 1.8-7.8 Blood lymphocytes automated count (number/volume) 1.3 10*3 1.0-4.0 Blood monocytes automated count (number/volume) 0. 7 10*3 0.0-1.0 Automated eosinophil count 0.0 10*3/uL 0 .0-0.3 Automated blood basophil count (count/volume) 0.0 10*3/uL 0.0-0.1 Serum heterophile antibody titer - 07/31 19:48 Serum heterophile antibody titer NEGATIVE NEGATIVE Comprehensive metabolic panel - 07/31/19 19:48 Serum or plasma sodium measurement (moles/volume) 134 mmol/L 135-145 Serum or plasma potassium measurement (moles/volume) 4.2 mmol/L 3.6-5.0 Serum or plasma chloride measurement (moles/volume) 92 mmol/L 98-107 Carbon dioxide 17 mmol/L 21-32 Serum or plasma anion gap determination (moles/volume) 25 mmol/L 5-14 Serum or plasma urea nitrogen measurement (mass/volume ) 24 mg/dL 7-18 Serum or plasma creatinine measurement (mass/volume) 1.32 mg/dL 0.60-1.30 Serum or plasma urea nitrogen/creatinine mass ratio 18 NRG Serum or plasma creatinine measurement w ith calculation of estimated glomerular filtration rate > NRG Serum or plasma glucose measurement (mass/volume) 477 mg/dL 70-105 Serum or plasma calcium measurement (mass/volume) 9.8 mg/dL 8.5-10.1 Serum or plasma total bilirubin measurement (mass/volu me) 1.1 mg/dL 0.1-1.0 Serum or plasma alkaline phosphatase jalyn surement (enzymatic activity/volume) 203 U/L 40-136 Serum or plasma aspartate aminotransfera se measurement (enzymatic activity/volume) 25 U/L 5-34 Serum or plasma alanine aminotransferase measurement (enzymatic activity/volume) 37 U/L 0-55 Serum or plasma protein measurement (mass/volume) 8.0 g/dL 6.4-8.2 Serum or plasma albumin measurement (mass/volume) 3.9 g/dL 3.2-4.5 CALCIUM CORRECTED 9.9 mg/dL 8.5-10.1 Magnesium - 07/31/19 19:48 Magnesium 1.7 mg/dL 1.6-2.4 Serum or plasma troponin i.cardiac measu rement (mass/volume) - 07/31/19 19:48 Serum or plasma troponin i.cardiac measurement (mass/v olume) < ng/mL <0.028 Serum or plasma amylase measurement (enz ymatic activity/volume) - 07/31/19 19:48 Serum or plasma amylase measurement (enzymatic activit y/volume) 66 U/L 25-125 Lipase - 07/31/19 19:48 Lipase < U/L 8-78 THYROID STIMULATING HORMONE - 07/31/19 1 9:48 THYROID STIMULATING HORMONE 3.64 u[iU]/mL 0.35-4.94 Serum or plasma salicylates measurement (mass/volume) - 07/31/19 19:48 Serum or plasma salicylates measurement (mass/volume) < mg/dL 5.0-20.0 PT panel in platelet poor plasma by coag ulation assay - 07/31/19 19:48 Prothrombin time (PT) in platelet poor plasma by coagu lation assay 14.2 s 12.2-14.7 INR in platelet poor plasma or blood by coagulation as say 1.1 0.8-1.4 Activated partial thromboplastin time (a PTT) in platelet poor plasma bycoagulation assay - 07/31/19 19:48 Activated partial thromboplastin time (a PTT) in platelet poor plasma bycoagulation assay 28 s 24-35 Serum or plasma lithium measurement (mol es/volume) - 07/31/19 19:48 BNP PT 14.5 pg/mL <100.0 Serum or plasma acetaminophen measuremen t (mass/volume) - 07/31/19 19:48 Serum or plasma acetaminophen measurement (mass/volume ) < ug/mL 10-30 Serum or plasma ethanol measurement (mas s/volume) - 07/31/19 19:48 Serum or plasma ethanol measurement (mass/volume) < mg/dL <10 Streptococcus pyogenes antigen detection - 07/31/19 20:00 Streptococcus pyogenes antigen detection NEGATIVE NEGATIVE Blood lactic acid measurement (moles/vol ume) - 07/31/19 20:00 Blood lactic acid measurement (moles/volume) 3.79 mmol/L 0.50-2.00 Influenza virus A and B antigen detectio n - 07/31/19 20:00 FLU RESULT NEGATIVE FOR INFLUENZA A AND B ANTIGENS BY IA NRG Bacterial throat culture - 07/31/19 20:0 0 Bacterial throat culture NBS NRG Bacterial blood culture - 07/31/19 20:00 Bacterial blood culture NG NRG Arterial blood gas measurement - 0 20:30 Blood pCO2 16 mm[Hg] 35-45 Blood pO2 92 mm[Hg] 79-93 Arterial blood bicarbonate measurement (moles/volume) 15 mmol/L 23-27 Arterial blood base excess by calculation -6.8 mmo l/L -2.5-2.5 Arterial blood oxygen saturation measurement 99 % 94-100 * Inhaled oxygen flow rate ROOM AIR NRG Arterial blood pH measurement with patient temperature correction 7.59 7.37-7.43 Arterial blood carbon dioxide, total measurement (mole s/volume) 15.5 mmol/L 21.0-31.0 Body site RIGHT RADIAL NRG Assessment of wrist artery patency prior to arterial p uncture POSITIVE NRG Setting of ventilation mode NO NR G Measurement of body temperature 97.6 NRG Bacterial blood culture - 07/31/19 20:49 Bacterial blood culture NG NRG Urine drug screening test - 07/31/19 21: 03 Urine phencyclidine detection by screening method NEGATIVE NEGATIVE Urine benzodiazepines detection by screening method NEGATIVE NEGATIVE Urine cocaine detection NEGATIVE NEGATI VE Urine amphetamines detection by screening method N EGATIVE NEGATIVE Urine methamphetamine detection by screening method NEGATIVE NEGATIVE Urine cannabinoids detection by screening method N EGATIVE NEGATIVE Urine opiates detection by screening method NEGATI VE NEGATIVE Urine barbiturates detection NEGATIVE N EGATIVE Screening urine tricyclic antidepressants detection POSITIVE NEGATIVE Urine methadone detection by screening method NEGA TIVE NEGATIVE Urine oxycodone detection NEGATIVE NEGA TIVE Urine propoxyphene detection NEGATIVE N EGATIVE Complete urinalysis with reflex to cultu re - 07/31/19 21:03 Urine color determination YELLOW NRG Urine clarity determination CLEAR NR G Urine pH measurement by test strip 6.0 5-9 Specific gravity of urine by test strip 1.020 1.016-1.022 Urine protein assay by test strip, semi-quantitative 3+ NEGATIVE Urine glucose detection by automated test strip 3+ NEGATIVE Erythrocytes detection in urine sediment by light micr oscopy 3+ NEGATIVE Urine ketones detection by automated test strip 3+ NEGATIVE Urine nitrite detection by test strip NEGATIVE NEGATIVE Urine total bilirubin detection by test strip NEGA TIVE NEGATIVE Urine urobilinogen measurement by automated test strip (mass/volume) 0.2 mg/dL < = 1.0 Urine leukocyte esterase detection by dipstick NEG ATIVE NEGATIVE Automated urine sediment erythrocyte cou nt by microscopy (number/high power field) [HPF] NRG Automated urine sediment leukocyte count by microscopy (number/high power field) [HPF] NRG Bacteria detection in urine sediment by light microsco py FEW NRG Crystals detection in urine sediment by light microsco py PRESENT NRG Casts detection in urine sediment by light microscopy NONE NRG Mucus detection in urine sediment by light microscopy NEGATIVE NRG Complete urinalysis with reflex to culture YES NRG Amorphous sediment detection in urine sediment by ligh t microscopy FEW NICKI URATES NRG Bacterial urine culture - 07/31/19 21:03 Bacterial urine culture NG NRG Capillary blood glucose measurement by g lucometer (mass/volume) - 07/31/19 21:33 Capillary blood glucose measurement by glucometer (mas s/volume) 290 mg/dL 70-110 Capillary blood glucose measurement by g lucometer (mass/volume) - 07/31/19 22:05 Capillary blood glucose measurement by glucometer (mas s/volume) 219 mg/dL 70-110 Arterial blood gas measurement - 0 22:11 Blood pCO2 39 mm[Hg] 35-45 Blood pO2 95 mm[Hg] 79-93 Arterial blood bicarbonate measurement (moles/volume) 20 mmol/L 23-27 Arterial blood base excess by calculation -5.2 mmo l/L -2.5-2.5 Arterial blood oxygen saturation measurement 97 % 94-100 * Inhaled oxygen flow rate 2L NRG Arterial blood pH measurement with patient temperature correction 7.32 7.37-7.43 Arterial blood carbon dioxide, total measurement (mole s/volume) 21.0 mmol/L 21.0-31.0 Body site LEFT RADIAL NRG Assessment of wrist artery patency prior to arterial p uncture POSITIVE NRG Setting of ventilation mode NO NR G Measurement of body temperature 97.9 NRG Serum or plasma lactate measurement (mol es/volume) - 07/31/19 22:11 Serum or plasma lactate measurement (moles/volume) 2.90 mmol/L 0.50-2.00 Encounters ACCT No. Visit Date/Time Discharge Status Pt. Type Provider Facility Loc./Unit Complaint [id number] 07/31/2019 19:29:00 020 22:42:00 DIS Emergency GAUTAM DO, KELECHI Melton [facility] ER VOMITING BLOOD, NPO X 3 DAYS, DM,CONFUSION [id number] 06/03/2019 13:48:00 23:59:59 CLS Outpatient RACQUEL RICHARDSON MD [facility] LAB FS R79.89 [id number] 01/14/2019 10:15:00 23:59:59 CLS Outpatient RACQUEL RICHARDSON MD [facility] LAB FS E11.40 [id number] 11/18/2018 14:30:00 23:59:59 CLS Preadmit BAIMAROSE MARIEMEIR L [employer]PER[employer] [facility] CARD SYNCOPE AND COLLAPSE [id number] 08/19/2018 14:33:00 019 00:01:00 DIS Outpatient BAIMEIR DICKSON L [employer] SUPERVIS[employer] [facility] CARD SYNCOPE AND COL LAPSE [id number] 10/18/2018 09:50:00 23:59:59 CLS Outpatient RACQUEL RICHARDSON MD [facility] LAB FS E11.40 [id number] 08/17/2018 21:30:00 14:30:00 DIS Inpatient LISETTE MELVIN, ОЛЕГ Melton [facility] 4TH HYPOXIA,ELEVATED TROPONIN,HYPERGLYCEMIA,RICCARDO
== END 2019-07-31 22:42 ==
LOC: EDUNIT# 19:27 → ER 19:29
DX: E11.10 Type 2 diabetes mellitus with ketoacidosis without coma (principal); I10 Essential (primary) hypertension; K92.0 Hematemesis; R10.13 Epigastric pain; R41.82 Altered mental status, unspecified; R09.02 Hypoxemia; N28.9 Disorder of kidney and ureter, unspecified; E86.0 Dehydration; E78.00 Pure hypercholesterolemia, unspecified; E11.40 Type 2 diabetes mellitus with diabetic neuropathy, unspecified; K21.9 Gastro-esophageal reflux disease without esophagitis; E66.9 Obesity, unspecified; Z79.4 Long term (current) use of insulin; Z87.891 Personal history of nicotine dependence; Z90.49 Acquired absence of other specified parts of digestive tract; Z91.19 Patient's noncompliance with other medical treatment and regimen; Z68.32 Body mass index [BMI] 32.0-32.9, adult
CPT/HCPCS: 36415; 51702; 71045; 80053; 80306; 80320; 80329; 81000; 82150; 82805; 82962; 83605; 83690; 83735; 83880; 84443; 84484; 85025; 85610; 85730; 86308; 87040; 87088; 87430; 87804; 93005; 93041; 96361; 96365; 96375; 96376

== ENCOUNTER 2021-06-19 12:31 | Emergency (ER) | payer MEDICARE ==
[~2021-06-19] VITALS: Ht 170.2 cm; Wt 104.3 kg
[~2021-06-19 12:31] MED LIST changes: -METO10TA3 PO; +MTC10T PO; -OMEP40CA27 PO; +OMEP40CA6 PO
[2021-06-19 12:35] VITALS: BP 138/72
--- OUTSIDE RECORDS SUMMARY | 2021-06-19 12:36 | XMS REPORT | Clinical Summary ---
Author Author [facility] Organization [facility] Address Unknown Phone Unavailable Care Team Providers Care Marketing Teacher Name Role Phone Zacarias Alba MD PCP Source Comments Some departments are not documenting in the electronic medical record. If you d o not see the information that you expected, contact Release of Information in [facility] Health Information Management department at [phone] for further assistan ce in locating additional records.[facility] Allergies Comments Active Allergy Reactions Severity Noted Date Makes him feel bad Amoxicillin UNKNOWN Low 09/24/2016 Medications End Date Status Medication Sig Dispensed Refills Start Date Active amitriptyline (ELAVIL) 10 Take 10 mg by 0 mg tablet mouth at bedtime as needed. Active gabapentin (NEURONTIN) Take 300 mg 0 300 mg capsule by mouth three times daily. Active omeprazole DR(+) Take 20 mg by 0 (PRILOSEC) 20 mg capsule mouth twice daily. Active insulin aspart (NOVOLOG Inject 15 0 FLEXPEN) 100 unit/mL Units under injection PEN the skin three times daily with meals. Active insulin glargine (LANTUS Inject 25 0 SOLOSTAR) 100 unit/mL (3 Units under mL) injection PEN the skin twice daily. Active metFORMIN (GLUCOPHAGE) Take 1 Tab by 180 Tab 3 0 500 mg tablet mouth twice 7 daily with meals. Active atorvastatin (LIPITOR) 40 Take 1 Tab by 90 Tab 3 mg tablet mouth at 7 bedtime daily. Active VITAMIN D 50,000 unit TAKE ONE 4 capsule 0 09/0 201 capsule CAPSULE BY 7 MOUTH ONCE A WEEK Active ertapenem (INVANZ) 1 g/10 Administer 1 0 04/1 201 mL 1 g in sodium chloride g through 7 0.9% (NS) 0.9 % 100 mL vein every 24 IVPB (MB+) hours. Target stop 11/04, exact duration per infectious disease. Active docusate (COLACE) 100 mg Take 1 Cap by 180 Cap 3 capsule mouth twice 7 daily as needed for Constipation. Hold for loose stools. Take while on oxycodone Active oxyCODONE/acetaminophen Take 1-2 Tabs 30 Tab 0 (ENDOCET) 5/325 mg tablet by mouth 7 every 6 hours as needed for Pain Earliest Fill Date: 09/26/16 Active Problems Problem Noted Date Open wound of left foot 09/24/2016 Osteomyelitis 09/24/2016 Closed displaced fracture of first metatarsal bone of left foot 08/06/2016 Surgical History Surgery Date Site/Laterality Comments FEMUR SURGERY 2015 Left Rods HX SHOULDER SURGERY 2014 Left SURGERY 2016 Mass removed from b uttocks SURGERY Right Forearm surgery twi ce FOOT DEBRIDEMENT 09/24/2016 Foot/Left EXCISIONAL DE BRIDEMENT FOOT performed [facility] SKIN GRAFT 09/24/2016 Leg Lower/Left GRAFT SKIN SPLI T THICKNESS UPPER EXTREMITY performed by Rickey P[facility]rez MD at [facility] OR/Periop TISSUE TRANSFER 09/24/2016 Foot/Left LOWER EXTREMIT Y LOCAL FLAP coverage performed by Rickey P[facility] FOOT FRACTURE SURGERY 08/06/2016 Foot/Left OPEN RED UCTION INTERNAL FIXATION BASE OF THE FIRST METATARSAL performed by Rickey P[facility]rez MD [facility] Medical devices from this surgery are i n the Implants section. ACHILLES TENDON SURGERY 08/06/2016 Leg Lower/Left LENGTH ENING ACHILLES TENDON performed by Rickey P[facility]rez MD [facility] Medical devices from this surgery are i n the Implants section. ARTHRODESIS 08/06/2016 Foot/Left ARTHRODESIS FIR ST TARSOMETATARSAL WITH BONE GRAFT FROM CALCANEUS performed by Saw Pérez MD [facility] Medical devices from this surgery are i n the Implants section. Medical History Medical History Date Comments Seasonal allergies DM (diabetes mellitus) (HCC) IDDM Acid reflux Hepatitis Hep C, treated Fracture Family History Medical History Relation Name Comments Cancer Mother Relation Name Status Comments Mother Social History Date Tobacco Use Types Packs/Day Years Used Former Smoker Cigarettes 4 Smokeless Tobacco: Chew Current User Tobacco Cessation: Ready to Quit: No; Co unseling Given: Yes Comments Alcohol Use Standard Drinks/Week No 0 (1 standard drink = 0.6 o z pure alcohol) Sex Assigned at Date Recorded Not on file Last Filed Vital Signs Reading Time Taken Comments Vital Sign 154/104 02/11/2017 11:12 AM CDT Blood Pressure 101 02/11/2017 11:12 AM CDT Pulse 36.6 C (97.8 F) 10/13/2016 11:02 AM CDT Temperature - - Respiratory Rate 95% 09/26/2016 2:00 PM CDT Oxygen Saturation - - Inhaled Oxygen Concentration 99.8 kg (220 lb) 02/11/2017 11:12 AM CDT Weight 171.4 cm (5' 7.48") 02/11/2017 11:12 AM CDT Height 33.97 02/11/2017 11:12 AM CDT Body Mass Index Plan of Treatment Health Maintenance Due Date Last Done Comments MEDICARE ANNUAL WELLNESS 1964 VISIT HIV SCREENING 1979 DTAP/TDAP VACCINES (1 - 1982 Tdap) HEPATITIS C SCREENING 1982 PHYSICAL (COMPREHENSIVE) 1982 EXAM COLORECTAL CANCER 2014 SCREENING SHINGLES RECOMBINANT 2014 VACCINE (1 of 2) INFLUENZA VACCINE 01/13/2021 Implants Device Identifier Shelf Expiration Date Model / Serial / L ot Implanted Type Area Manufactur er Shoulder Left: Shoulder Knee Left: Knee [id number] / N/A / N/A Screw Locking T10 Full Thread 2.7mm Left: Foot S TRYKER:ST / L40mm PRAVEEN Implanted: Qty: 1 on 08/06/2016 by Rickey Schumacher MD at [facility] [id number] / NA / NA Screw Locking T10 Full Thread 2.7mm Left: Foot S TRYKER:ST / L34mm PRAVEEN Implanted: Qty: 1 on 08/06/2016 by Rickey Schumacher MD at [facility] [id number] / NA / NA Screw Bone T10 Full Thread 2.7mm / Left: Foot ST PRAVEEN:ST L30mm PRAVEEN Implanted: Qty: 1 on 08/06/2016 by Rickey Schumacher MD at [facility] [id number] / [id number] / [id number] Screw Locking T10 Full Thread 2.7mm Left: Foot S TRYKER:ST / L36mm PRAVEEN Implanted: Qty: 1 on 08/06/2016 by INSTR Rickey Pérez MD at [facility] [id number] / [id number] / [id number] Screw Bone T10 Full Thread 2.7mm / Left: Foot ST PRAVEEN:ST L50mm PRAVEEN Implanted: Qty: 1 on 08/06/2016 by INSTR Rickey Pérez MD at [facility] [id number] / [id number] / [id number] Screw Bone T10 Full Thread 2.7mm / Left: Foot ST PRAVEEN:ST L38mm PRAVEEN Implanted: Qty: 1 on 08/06/2016 by INSTR Rickey Pérez MD at [facility] [id number] / [id number] / [id number] Plate 6 Hole V1 [place] Bone Left Left: Foot S TRYKER Metatarsophalangeal FOOT & Implanted: Qty: 1 on 08/06/2016 by ANKLE Rickey Pérez MD at [facility] Results Not on filefrom Last 3 Months Insurance Type Payer Benefit Subscriber ID Effective Phone Address Plan / Dates Group Medicare MEDICARE MEDICARE [id number] 2014-P [phone] [id number] [place] [address] [phone] Advance Directives Patient Field Research Assistant Explanation Type Date Recorded Advance 09/24/2016 6:22 AM Directive/DPOA Date Inactivated Comments Code Status Date Activated 09/26/2016 6:31 PM Full Code 09/24/2016 9:56 AM Provider has discussed Code Status No, discussion no t w/Patient or Family? necessary based on Dx 08/07/2016 11:35 PM Full Code 08/06/2016 1:53 PM Provider has discussed Code Status No, discussion no t w/Patient or Family? necessary based on Dx Care Teams Start Date End Date Marketing Teacher Relationship Specialty 08/06/16 Zacarias Alba MD PCP - General Pediatrics [address] [place] [address]
--- NOTE | 2021-06-19 13:02 | ED General ---
General Chief Complaint: General Problems/Pain Stated Complaint: RT GROIN INJ Nursing Triage Note: Patient reports he slipped and did the splits on , reports continued pain in his right groin, thigh, and hip. Source of Information: Patient History of Present Illness Date Seen by Provider: Jun 19, 2021 Time Seen by Provider: 12:30 Initial Comments Patient is a 55-year-old male who presents with right groin pain after slipping 4 days ago and abducting his hips. Patient states he effectively did the splits. He reports right inner groin pain which radiates to his right medial thigh with palpation and movement. Pain is not improved its rated moderate. Denies other injury or pain complaint. Patient is able to ambulate with minimal difficulty. Timing/Duration: 4-5 Days Severity: Moderate Modifying Factors: improves with Movement Associated Systoms: Other Allergies and Home Medications Allergies Coded Allergies: No Known Drug Allergies (Unverified , 08/17/18) Patient Home Medication List Home Medication List Reviewed: Yes Amitriptyline HCl (Amitriptyline HCl) 50 Mg Tablet, 50 MG PO HS, (Reported) Entered as Reported by: DAYNA BORJAS on 08/17/181909 Atorvastatin Calcium (Atorvastatin Calcium) 40 Mg Tablet, 40 MG PO HS, (Reported) Entered as Reported by: DAYNA BORJAS on 08/17/181909 Gabapentin (Gabapentin) 600 Mg Tablet, 600 MG PO TID, (Reported) Entered as Reported by: DAYNA BORJAS on 08/17/181909 Hydrocodone Bit/Acetaminophen (Lortab 5 Mg Tablet) 1 Tab Tab, 1 TAB PO Q4-6HR PRN for PAIN-MODERATE Prescribed by: DAVID HERNÁNDEZ on 08/19/1828 Insulin Aspart (Novolog Flexpen) 300 Units/3 Ml Solution, 15 UNITS SC TIDAC, (Reported) Entered as Reported by: DAYNA BORJAS on 08/17/181909 Insulin Detemir (Levemir Flextouch) 100 Unit/1 Ml Insuln.pen, 25 UNITS SC BID, (Reported) Entered as Reported by: DAYNA BORJAS on 08/17/181909 Metoclopramide HCl (Metoclopramide HCl) 10 Mg Tablet, 10 MG PO TID, (Reported) Entered as Reported by: DAYNA BORJAS on 08/17/181909 Metoprolol Tartrate (Metoprolol Tartrate) 25 Mg Tablet, 25 MG PO BID Prescribed by: DAVID HERNÁNDEZ on 08/19/1828 Omeprazole (Omeprazole) 40 Mg Capsule.dr, 40 MG PO DAILY, (Reported) Entered as Reported by: DAYNA BORJAS on 08/17/181909 Review of Systems Review of Systems Constitutional: no symptoms reported EENTM: no symptoms reported Respiratory: no symptoms reported Cardiovascular: no symptoms reported Gastrointestinal: no symptoms reported Genitourinary: no symptoms reported Musculoskeletal: no symptoms reported Skin: no symptoms reported Psychiatric/Neurological: No Symptoms Reported Hematologic/Lymphatic: No Symptoms Reported Immunological/Allergic: no symptoms reported All Other Systems Reviewed Negative Unless Noted: Yes Past Xrngctk-Chjckc-Rxbmmi Hx Patient Social History Tobacco Use?: Yes Substance use?: No Alcohol Use?: No Immunizations Up To Date Tetanus Booster (TDap): Unknown PED Vaccines UTD: Yes First/Initial COVID19 Vaccinat: September 2020 Second COVID19 Vaccination Ryan: September 2020 Seasonal Allergies Seasonal Allergies: No Past Medical History Surgery/Hospitalization HX: DM Surgeries: Yes (Rods placed in leg and back, fatty abdominal tumor removed.) Gallbladder, Orthopedic Respiratory: No Cardiac: Yes Chronic Edema/Swelling, High Cholesterol, Hypertension Neurological: Yes Neuropathy Genitourinary: No Gastrointestinal: Yes (GASTROPARESIS ???; S/P CHOLECYSTECTOMY; HEPATITIS C--S/P TREATMENT) Gastroesophageal Reflux, Hepatitis, Gall Bladder Disease Musculoskeletal: Yes (RODS IN BACK AND FEMUR; CHRONIC JOINT PAIN) Back Injury, Chronic Back Pain Endocrine: Yes (OBESE; NON-COMPLIANCE WITH DM-DOES NOT CHECK BLOOD SUGAR OR FOLLOW DIET. ) Diabetes, Insulin dep HEENT: No Cancer: No Psychosocial: No Integumentary: No Blood Disorders: No Adverse Reaction/Blood Tranf: No Physical Exam Vital Signs Vital Signs - First Documented 06/19/21 12:35 Temp 36.5 Pulse 96 Resp 18 B/P (MAP) 138/72 (94) Pulse Ox 98 O2 Delivery Room Air Capillary Refill : Less Than 3 Seconds Height, Weight, BMI Height: 5'6.00" Weight: 234lbs. 0.0oz. 106.367140up; 36.00 BMI Method:Stated General Appearance: WD/WN, Anxious Eyes: Bilateral Eye Normal Inspection, Bilateral Eye PERRL, Bilateral Eye EOMI HEENT: PERRL/EOMI, Pharynx Normal Cardiovascular: Regular Rate, Rhythm Gastrointestinal: Tenderness (Right groin, medial tenderness. No bony tender ness) Extremity: Other (R groin pain/tenderness) Focused Exam Sepsis Stage: Ruled Out Progress/Results/Core Measures Suspected Sepsis SIRS Temperature: Pulse: 96 Respiratory Rate: 18 Blood Pressure 138 /72 Mean: 94 Results/Orders My Orders Orders - MARCIA BOLAÑOS DO Pelvis (Ap) (06/19/21 12:52) Vital Signs/I&O 06/19/21 12:35 Temp 36.5 Pulse 96 Resp 18 B/P (MAP) 138/72 (94) Pulse Ox 98 O2 Delivery Room Air Capillary Refill : Less Than 3 Seconds Blood Pressure Mean: 94 Departure Communication (Admissions) Pelvis: No fracture per radiology report Right groin strain. Recommendations supportive care with PCP follow-up. Impression Primary Impression: Strain of right groin Disposition: HOME, SELF-CARE Condition: Stable Departure-Patient Inst. Decision time for Depature: 13:31 Referrals: RACQUEL RICHARDSON MD (PCP/Family) Primary Care Physician Patient Instructions: Groin Strain ED Add. Discharge Instructions: Please take ibuprofen for pain and tramadol as needed for additional relief. Follow-up with your PCP in 7 to 10 days for reevaluation. All discharge instructions reviewed with patient and/or family. Voiced understanding. Scripts Tramadol HCl (Tramadol HCl) 50 Mg Tablet 50 MG PO Q6H PRN for PAIN for 3 Days, #20 TAB 0 Refills Prov: MARCIA BOLAÑOS DO 06/19/21 MARCIA BOLAÑOS DO Jun 19, 2021 13:02
--- NOTE | 2021-06-19 13:23 | Diagnostic Imaging Report ---
Indication: Right hip pain after a fall AP view pelvis shows no fracture or dislocation. Pelvic ring appears normal. IMPRESSION: Unremarkable pelvis Dictated by: Dictated on workstation # [id number]
[2021-06-19] MEDS ORDERED: TRM50T PO (13:32)
== END 2021-06-19 13:43 | disposition home or self-care (01) ==
LOC: EDUNIT# 12:31 → ER FS 12:32
DX: S39.011A Strain of muscle, fascia and tendon of abdomen, initial encounter (principal); I10 Essential (primary) hypertension; E78.00 Pure hypercholesterolemia, unspecified; K21.9 Gastro-esophageal reflux disease without esophagitis; E11.9 Type 2 diabetes mellitus without complications; G89.29 Other chronic pain; M54.9 Dorsalgia, unspecified; E66.9 Obesity, unspecified; Z68.36 Body mass index [BMI] 36.0-36.9, adult; Z72.0 Tobacco use; Z79.891 Long term (current) use of opiate analgesic; Z79.4 Long term (current) use of insulin; W01.0XXA Fall on same level from slipping, tripping and stumbling without subsequent striking against object, initial encounter
CPT/HCPCS: 72170

== ENCOUNTER 2021-07-05 16:46 | Emergency (ER) | payer MEDICARE ==
[~2021-07-05] VITALS: Ht 170.2 cm; Wt 99.8 kg
[~2021-07-05 16:46] MED LIST changes: +TRM50T PO
[2021-07-05 17:00] VITALS: BP 172/76
[2021-07-05] MEDS ORDERED: NS IV 1000 ML 1,000 ML IV SCH (17:15)
[2021-07-05] MEDS ORDERED: DEXTROSE 50% 50 ML (IMS) SYR IV STA (17:16)
[2021-07-05] MEDS ORDERED: D5 NS 1000 ML IV SOLUTION 1,000 ML IV STA (17:16)
[2021-07-05] MEDS ORDERED: D5W 1000 ML IV SOLUTION 1,000 ML ONE (17:23)
[2021-07-05 17:24] LABS: BASOPHILS % (AUTO) 1 % (0-10); EOSINOPHILS # (AUTO) 0.1 10^3/uL (0.0-0.3); EOSINOPHILS % (AUTO) 3 % (0-10); HEMATOCRIT 32 % (40-54); HEMOGLOBIN 10.3 g/dL (13.3-17.7); LYMPHOCYTES # (AUTO) 0.9 X 10^3 (1.0-4.0); LYMPHOCYTES % (AUTO) 16 % (12-44); MEAN CORPUSCULAR HEMOGLOBIN 29 pg (25-34); MEAN CORPUSCULAR HGB CONC 32 g/dL (32-36); MEAN CORPUSCULAR VOLUME 92 fL (80-99); MEAN PLATELET VOLUME 11.2 fL (9.0-12.2); MONOCYTES # (AUTO) 0.7 X 10^3 (0.0-1.0); MONOCYTES % (AUTO) 13 % (0-12); NEUTROPHILS # (AUTO) 3.7 X 10^3 (1.8-7.8); NEUTROPHILS % (AUTO) 68 % (42-75); PLATELET COUNT 197 10^3/uL (130-400); WHITE BLOOD COUNT 5.5 10^3/uL (4.3-11.0)
[2021-07-05 17:25] LABS: BACTERIA,URINE TRACE /HPF; BILIRUBIN,URINE NEGATIVE (NEGATIVE); CLARITY,URINE CLEAR; COLOR,URINE YELLOW; GLUCOSE, URINE (UA) TRACE (NEGATIVE); KETONES,URINE NEGATIVE (NEGATIVE); LEUKOCYTE ESTERASE ,URINE NEGATIVE (NEGATIVE); NITRITE,URINE NEGATIVE (NEGATIVE); PROTEIN,URINE 2+ (NEGATIVE); RBC,URINE 25-50 /HPF
--- NOTE | 2021-07-05 17:25 | ED General ---
General Chief Complaint: Glucose Problems Stated Complaint: LOW BLOOD SUGAR Source of Information: Patient, EMS, Old Records History of Present Illness Date Seen by Provider: Jul 05, 2021 Time Seen by Provider: 16:45 Initial Comments 55-year-old male presenting by EMS from home after he was unresponsive for family. On EMS arrival they found him to be hypoglycemic with a sugar of 17. He had decreased respirations and had an O2 sat of 80% on room air. He was given an amp of D50 by IV and his sugar did come up to 160. He was slowly becoming more awake and alert. He states that he takes Levemir and NovoLog to help control his diabetes. He had been up all night watching football and went to bed at 4 AM. Then he got up at noon. He took his insulin but had not eaten anything. He had been sick with cough and congestion for the last week. He states that he has been having difficulty urinating and having to bear down and force himself to be able to go to the bathroom. He had a positive exposure to COVID with his son who lives at the house with him and patient's mother. He has been coughing and feeling short of breath. He reports tonight he was feeling like he could not move and he had electrical shocks all over his body. He is awake and talking nonstop upon arrival to the ED. He is constantly asking for something to eat or drink. He wants a candy bar and Sprite. He was advised that we do not have those here in would not have juice and crackers with pudding to try and help with his sugar. Associated Systoms: Chest Pain (Left-sided chest pain when he coughs over the last week), Cough; No Diaphoresis, No Fever/Chills, No Headaches, No Loss of Appetite, No Malaise, No Nausea/Vomiting; Rash (erythematous rash to bilateral shins with superficial ulcerations ), Shortness of Air, Weakness (general) Allergies and Home Medications Allergies Coded Allergies: No Known Drug Allergies (Unverified , 08/17/18) Patient Home Medication List Home Medication List Reviewed: Yes Amitriptyline HCl (Amitriptyline HCl) 50 Mg Tablet, 50 MG PO HS, (Reported) Entered as Reported by: DAYNA BORJAS on 08/17/181909 Atorvastatin Calcium (Atorvastatin Calcium) 40 Mg Tablet, 40 MG PO HS, (Reported) Entered as Reported by: DAYNA BORJAS on 08/17/181909 Azithromycin (Azithromycin) 500 Mg Tablet, 500 MG PO DAILY Prescribed by: BRIANA VALDEZ on 07/05/211851 Gabapentin (Gabapentin) 600 Mg Tablet, 600 MG PO TID, (Reported) Entered as Reported by: DAYNA BORJAS on 08/17/181909 Hydrocodone Bit/Acetaminophen (Lortab 5 Mg Tablet) 1 Tab Tab, 1 TAB PO Q4-6HR PRN for PAIN-MODERATE Prescribed by: DAVID HERNÁNDEZ on 08/19/18927 Insulin Aspart (Novolog Flexpen) 300 Units/3 Ml Solution, 15 UNITS SC TIDAC, (Reported) Entered as Reported by: DAYNA BORJAS on 08/17/181909 Insulin Detemir (Levemir Flextouch) 100 Unit/1 Ml Insuln.pen, 25 UNITS SC BID, (Reported) Entered as Reported by: DAYNA BORJAS on 08/17/181909 Metoclopramide HCl (Metoclopramide HCl) 10 Mg Tablet, 10 MG PO TID, (Reported) Entered as Reported by: DAYNA BORJAS on 08/17/181909 Metoprolol Tartrate (Metoprolol Tartrate) 25 Mg Tablet, 25 MG PO BID Prescribed by: DAVID HERNÁNDEZ on 08/19/18927 Omeprazole (Omeprazole) 40 Mg Capsule.dr, 40 MG PO DAILY, (Reported) Entered as Reported by: DAYNA BORJAS on 08/17/181909 Tramadol HCl (Tramadol HCl) 50 Mg Tablet, 50 MG PO Q6H PRN for PAIN Prescribed by: MARCIA BOLAÑOS on 06/19/21 1333 Review of Systems Review of Systems Constitutional: No chills, No diaphoresis, No fever EENTM: nose congestion; No epistaxis Respiratory: cough, phlegm, short of breath; No stridor, No wheezing Cardiovascular: chest pain (left lateral chest pain when coughing), edema Gastrointestinal: No nausea, No vomiting Genitourinary: decreased output; No dysuria; other (has to strain to be able to urinate) Musculoskeletal: no symptoms reported Skin: see HPI Psychiatric/Neurological: Denies Headache; Numbness (neuropathy with decreased feeling in feet bilaterally) Past Qaveviu-Utfvdr-Hbdiwc Hx Immunizations Up To Date Tetanus Booster (TDap): Unknown PED Vaccines UTD: Yes First/Initial COVID19 Vaccinat: September 2020 Second COVID19 Vaccination Ryan: September 2020 Seasonal Allergies Seasonal Allergies: No Past Medical History Surgery/Hospitalization HX: DM, Poor Compliance Surgeries: Yes (Rods placed in leg and back, fatty abdominal tumor removed.) Gallbladder, Orthopedic Respiratory: No Cardiac: Yes Chronic Edema/Swelling, High Cholesterol, Hypertension Neurological: Yes Neuropathy Genitourinary: No Gastrointestinal: Yes (GASTROPARESIS ???; S/P CHOLECYSTECTOMY; HEPATITIS C--S/P TREATMENT) Gastroesophageal Reflux, Hepatitis, Gall Bladder Disease Musculoskeletal: Yes (RODS IN BACK AND FEMUR; CHRONIC JOINT PAIN) Back Injury, Chronic Back Pain Endocrine: Yes (OBESE; NON-COMPLIANCE WITH DM-DOES NOT CHECK BLOOD SUGAR OR FOLLOW DIET. ) Diabetes, Insulin dep HEENT: No Cancer: No Psychosocial: No Integumentary: No Blood Disorders: No Adverse Reaction/Blood Tranf: No Physical Exam Vital Signs Vital Signs - First Documented 07/05/21 17:00 Temp 35.1 Pulse 76 Resp 19 B/P (MAP) 172/76 (108) Pulse Ox 100 O2 Delivery Room Air Capillary Refill : Height, Weight, BMI Height: 5'6.00" Weight: 234lbs. 0.0oz. 106.009829ky; 36.00 BMI Method:Stated General Appearance: Chronically ill, Obese HEENT: PERRL/EOMI; No Moist Mucous Membranes (slightly dry mucous membranes) Neck: Full Range of Motion, Normal Inspection, Non Tender, Supple Respiratory: Chest Non Tender, No Accessory Muscle Use, No Respiratory Distress, Decreased Breath Sounds, Rhonci; No Stridor Cardiovascular: Regular Rate, Rhythm, Normal Peripheral Pulses, Other (distant heart sounds and difficult to hear as patient kept asking for candy bars and sprite or soda during exam) Gastrointestinal: No Pulsatile Mass, Non Tender, Soft, Abnormal Bowel Sounds (hypoactive and tympanic), Distended Rectal: Deferred Extremity: No Calf Tenderness, Pedal Edema Neurologic/Psychiatric: Alert, Oriented x3 Skin: Warm/Dry Focused Exam Lactate Level 07/05/21 17:09: Lactic Acid Level 1.17 Lactic Acid Level Laboratory Tests Test 07/05/21 17:09 Lactic Acid Level 1.17 MMOL/L (0.50-2.00) Progress/Results/Core Measures Suspected Sepsis SIRS Temperature: Pulse: Respiratory Rate: Laboratory Tests 07/05/21 17:09: White Blood Count 5.5 Blood Pressure / Mean: 07/05/21 17:09: Lactic Acid Level 1.17 Laboratory Tests 07/05/21 17:09: Creatinine 1.15, INR Comment 1.0, Platelet Count 197, Total Bilirubin 0.3 Results/Orders Lab Results Laboratory Tests Test 07/05/21 16:56 07/05/21 17:03 07/05/21 17:09 07/05/21 17:13 Range/Units Glucometer 99 72 70-110 MG/DL Influenza Type A Antigen NEGATIVE NEGATIVE Influenza Type B Antigen NEGATIVE NEGATIVE SARS-CoV-2 RNA (RT-PCR) Not Detected Not Detecte White Blood Count 5.5 4.3-11.0 10^3/uL Red Blood Count 3.50 L 4.30-5.52 10^6/uL Hemoglobin 10.3 L 13.3-17.7 g/dL Hematocrit 32 L 40-54 % Mean Corpuscular Volume 92 80-99 fL Mean Corpuscular Hemoglobin 29 25-34 pg Mean Corpuscular Hemoglobin Concent 32 32-36 g/dL Red Cell Distribution Width 14.9 H 10.0-14.5 % Platelet Count 197 130-400 10^3/uL Mean Platelet Volume 11.2 9.0-12.2 fL Immature Granulocyte % (Auto) 1 % Neutrophils (%) (Auto) 68 42-75 % Lymphocytes (%) (Auto) 16 12-44 % Monocytes (%) (Auto) 13 H 0-12 % Eosinophils (%) (Auto) 3 0-10 % Basophils (%) (Auto) 1 0-10 % Neutrophils # (Auto) 3.7 1.8-7.8 X 10^3 Lymphocytes # (Auto) 0.9 L 1.0-4.0 X 10^3 Monocytes # (Auto) 0.7 0.0-1.0 X 10^3 Eosinophils # (Auto) 0.1 0.0-0.3 10^3/uL Basophils # (Auto) 0.0 0.0-0.1 10^3/uL Immature Granulocyte # (Auto) 0.0 0.0-0.1 10^3/uL Prothrombin Time 13.7 12.2-14.7 SEC INR Comment 1.0 0.8-1.4 Activated Partial Thromboplast Time 42 H 24-35 SEC Sodium Level 144 135-145 MMOL/L Potassium Level 4.7 3.6-5.0 MMOL/L Chloride Level 107 98-107 MMOL/L Carbon Dioxide Level 26 21-32 MMOL/L Anion Gap 11 5-14 MMOL/L Blood Urea Nitrogen 17 7-18 MG/DL Creatinine 1.15 0.60-1.30 MG/DL Estimat Glomerular Filtration Rate 75 BUN/Creatinine Ratio 15 Glucose Level 102 70-105 MG/DL Lactic Acid Level 1.17 0.50-2.00 MMOL/L Calcium Level 8.7 8.5-10.1 MG/DL Corrected Calcium 9.7 8.5-10.1 MG/DL Magnesium Level 1.9 1.6-2.4 MG/DL Total Bilirubin 0.3 0.1-1.0 MG/DL Aspartate Amino Transf (AST/SGOT) 38 H 5-34 U/L Alanine Aminotransferase (ALT/SGPT) 29 0-55 U/L Alkaline Phosphatase 197 H 40-136 U/L Troponin I < 0.30 <0.30 NG/ML C-Reactive Protein 2.97 H <0.50 MG/DL Pro-B-Type Natriuretic Peptide 53.3 <75.0 PG/ML Total Protein 7.3 6.4-8.2 GM/DL Albumin 2.7 L 3.2-4.5 GM/DL Test 07/05/21 17:15 07/05/21 18:48 Range/Units Urine Color YELLOW Urine Clarity CLEAR Urine pH 6.0 5-9 Urine Specific [place] 1.025 H 1.016-1.022 Urine Protein 2+ H NEGATIVE Urine Glucose (UA) TRACE H NEGATIVE Urine Ketones NEGATIVE NEGATIVE Urine Nitrite NEGATIVE NEGATIVE Urine Bilirubin NEGATIVE NEGATIVE Urine Urobilinogen 0.2 < = 1.0 MG/DL Urine Leukocyte Esterase NEGATIVE NEGATIVE Urine RBC (Auto) 2+ H NEGATIVE Urine RBC 25-50 H /HPF Urine WBC NONE /HPF Urine Squamous Epithelial Cells 2-5 /HPF Urine Crystals NONE /LPF Urine Bacteria TRACE /HPF Urine Casts PRESENT /LPF Urine Hyaline Casts 2-5 H /LPF Urine Mucus MODERATE H /LPF Urine Yeast FEW H /HPF Urine Culture Indicated NO Urine Opiates Screen NEGATIVE NEGATIVE Urine Oxycodone Screen NEGATIVE NEGATIVE Urine Methadone Screen NEGATIVE NEGATIVE Urine Propoxyphene Screen NEGATIVE NEGATIVE Urine Barbiturates Screen NEGATIVE NEGATIVE Ur Tricyclic Antidepressants Screen POSITIVE H NEGATIVE Urine Phencyclidine Screen NEGATIVE NEGATIVE Urine Amphetamines Screen NEGATIVE NEGATIVE Urine Methamphetamines Screen NEGATIVE NEGATIVE Urine Benzodiazepines Screen NEGATIVE NEGATIVE Urine Cocaine Screen NEGATIVE NEGATIVE Urine Cannabinoids Screen NEGATIVE NEGATIVE Glucometer 212 H 70-110 MG/DL My Orders Orders - BRIANA VALDEZ MD Monitor-Rhythm Ecg Trace Only (07/05/21 17:09) Ed Iv/Invasive Line Start (07/05/21 17:09) Cbc With Automated Diff (07/05/21 17:09) Comprehensive Metabolic Panel (07/05/21 17:09) Crp Fs (07/05/21 17:09) Troponin I Fs (07/05/21 17:09) Protime With Inr (07/05/21 17:09) Partial Thromboplastin Time (07/05/21 17:09) Ekg Tracing (07/05/21 17:09) Ns Iv 1000 Ml (Sodium Chloride 0.9%) (07/05/21 17:15) Accucheck Stat ONCE (07/05/21 17:09) Bladder Scan (07/05/21 17:09) Ua Culture If Indicated (07/05/21 17:09) Drug Screen Stat (Urine) (07/05/21 17:09) Probnp Fs (07/05/21 17:09) Covid 19 Inhouse Test (07/05/21 17:09) Influenza A & B Antigens (07/05/21 17:09) Sputum Culture (07/05/21 17:09) Blood Culture (07/05/21 17:09) Magnesium (07/05/21 17:09) Chest 1 View Ap/Pa Only (07/05/21 17:09) Ct Abdomen/Pelvis Wo (07/05/21 17:09) Isolation Central Supply Req (07/05/21 17:09) Lactic Acid Analyzer (07/05/21 17:09) D50w (Emergency) Syringe (Dextrose 50% 5 (07/05/21 17:16) D5 Ns 1000 Ml Iv Solution (Dextrose 5%/0 (07/05/21 17:16) D5w 1000 Ml Iv Solution (Dextrose 5% Yu (07/05/21 17:23) D5w 1000 Ml Iv Solution (Dextrose 5% Yu (07/05/21 17:30) Azithromycin Tablet (Zithromax Tablet) (07/05/21 18:11) Albuterol Inhaler (Albuterol) (07/05/21 18:11) Vital Signs/I&O 07/05/21 07/05/21 17:00 19:35 Temp 35.1 Pulse 76 Resp 19 B/P (MAP) 172/76 (108) Pulse Ox 100 O2 Delivery Room Air Capillary Refill : Progress Note #1: Progress Note Check sugar on arrival and it was already down under 100. Give him oral intake to try and help elevate his glucose while obtaining labs. Since he reports he is not able to urinate without straining will obtain bladder scan and may need straight cath or cunningham if has large distended bladder. Covid and Flu swabs, CXR with him having cough and congestion. Blood cultures and sputum culture to evaluate for bacterial infection/sepsis. Check basic labs including cardiac enzymes. Give IVF for hydration. Despite eating food and drinking juice his glucose was going down. Will repeat D50 and start D5W to help try to maintain glucose. Progress Note #2: Progress Note Labs appear stable without acute significant abnormality other than his low glu cose. He did have findings on his chest x-ray and CTA of having diffuse patchy infiltrate consistent with COVID. With his exposure to COVID at home he again likely has COVID infection. The swab has been sent but again will take at least a day or 2 to come back. Since his labs look okay and he is not septic will hold his fluids and recheck his glucose. If he is maintaining his glucose will plan on discharge to home. He would be started on Zithromax and an inhaler with a spacer for his pneumonia and COVID infection. Encouraged to follow-up with Dr. Richardson. Have him take his insulin only when he eats. Encouraged him to eat stay better hydrated. Progress Note #3: Progress Note Recheck of his glucose after he had eaten and been off of the dextrose shows a sugar of 212. Discharged to home as planned above and discussed with patient ECG Initial ECG Impression Date: Jul 05, 2021 Initial ECG Impression Time: 17:14 Initial ECG Rate: 74 Initial ECG Rhythm: Normal Sinus Initial ECG Comparisson: Unchanged Comment Sinus rhythm with a heart rate of 74 bpm. [place] interval [address] elevation. QT interval 421 ms with a QTc interval 467 ms. Overall this appears similar to prior tracings in the system. Diagnostic Imaging Diagonstic Imaging: Xray Plain Films/CT/US/NM/MRI: chest Comments [facility]. [place], [place] NAME: MILAGRO RING [facility] REC#: [id number] PT STATUS: REG ER : 1965 PHYSICIAN: BRIANA VALDEZ MD ADMIT DATE: 07/05/21/ER FS Signed Date of Exam:07/05/21 CHEST 1 VIEW AP/PA ONLY INDICATION: Cough with recent Covid exposure. EXAMINATION: Chest, 07/05/2021. COMPARISON: 07/31/2019. FINDINGS: There are scattered patchy infiltrates throughout both lungs. No effusions or pneumothorax. Heart is normal. Pulmonary vasculature is slightly congested. IMPRESSION: Diffuse scattered infiltrates. Dictated by: Dictated on workstation # [id number] Dict: 07/05/21 1803 Trans: 07/05/211848 [facility] [id number] Interpreted by: VAN VILLEGAS MD Electronically signed by: VAN VILLEGAS MD 07/05/211848 Reviewed: Reviewed by Me Diagonstic Imaging: CT Plain Films/CT/US/NM/MRI: abdomen, pelvis Comments NAME: MILAGRO RING [facility] REC#: [id number] PT STATUS: REG ER : 1965 PHYSICIAN: BRIANA VALDEZ MD ADMIT DATE: 07/05/21/ER FS Draft Date of Exam:07/05/21 CT ABDOMEN/PELVIS WO PROCEDURE: CT abdomen and pelvis without contrast. TECHNIQUE: Multiple contiguous axial images were obtained through the abdomen and pelvis without the use of intravenous contrast. Auto Exposure Controls were utilized during the CT exam to meet ALARA standards for radiation dose reduction. INDICATION: Abdominal pain and distention. Difficulty urinating. EXAMINATION: CT abdomen and pelvis without contrast, 07/05/2021. COMPARISON: 08/17/2018. FINDINGS: There are changes of gynecomastia, bilaterally. The visualized lungs demonstrate scattered bilateral infiltrates in a pattern suspicious for Covid which should be clinically excluded. There is lobularity along the periphery of the liver likely due to a history of cirrhosis. There is evidence of previous cholecystectomy. The pancreas, adrenal glands and spleen are unremarkable. There is no acute process in either kidney with punctate stones in the right kidney noted. There is no hydronephrosis or ureteral stones noted. There is mild lobularity of the periphery of the urinary bladder likely due to developing trabeculation. The urinary bladder is distended. Correlate clinically for bladder outlet obstructive process. There is no ascites or free air. The appendix is normal. There is nonspecific fat stranding, bilaterally, along the lateral aspects of the anterior abdomen subcutaneously perhaps due to injections. Correlate clinically. The osseous structures demonstrate a nonspecific sclerotic focus with central lucencies within the right femoral neck. This finding is stable from prior CT and therefore likely a benign process but better characterized with nonemergent MRI. There is an age-indeterminate compression fracture at L2. Correlate clinically for any point tenderness. IMPRESSION: 1. Bibasilar scattered infiltrates suspicious for Covid. 2. Changes of cirrhosis. 3. Lobular appearing distended urinary bladder correlate clinically for bladder outlet obstructive process. 4. Lesion in the right femoral neck likely benign given stability from previous CT. MRI non-emergently could further characterize. 5. Fat stranding in the subcutaneous soft tissues of the abdomen likely iatrogenic correlate clinically. 6. Compression deformity at L2 age indeterminate. Other findings as above. Dictated on workstation # [id number] Dict: 07/05/21 1745 Trans: 07/05/21 1758 [facility] [id number] Interpreted by: VAN VILLEGAS MD Electronically signed by: Departure Impression Primary Impression: Hypoglycemia associated with diabetes Additional Impression: Person under investigation for severe acute respiratory syndrome coronavirus 2 (SARS-CoV-2) infection Disposition: 01 HOME, SELF-CARE Condition: Stable Departure-Patient Inst. Decision time for Depature: 18:52 Referrals: RACQUEL RICHARDSON MD (PCP/Family) Primary Care Physician Patient Instructions: COVID-19 ED, COVID-19 Tests, How to Use a Metered Dose Inhaler ED, How to Use a Spacer, Low Blood Sugar, Adult ED Add. Discharge Instructions: Use Albuterol inhaler with spacer to help with cough and shortness of breath. You would use 2 puffs of the Albuterol inhaler every 4 hours as needed for cough and shortness of breath. The spacer helps get the medicine into your lungs rather than just spraying it all over your tongue and throat. Make sure you are eating and keeping your hydration up as well. Only take your insulin if you are eating and you may need to check with Dr. Richardson about your dosing of the insulin if your sugars keep running low. You should Quarantine for next 5 days or at least until you are symptoms free for 24 hours without having to use medicine for fever All discharge instructions reviewed with patient and/or family. Voiced understanding. Scripts Azithromycin (Azithromycin) 500 Mg Tablet 500 MG PO DAILY for Pneumonia/Covid for 4 Days, #4 TAB 0 Refills Prov: BRIANA VALDEZ MD 07/05/21 BRIANA VALDEZ MD Jul 05, 2021 17:25
[2021-07-05 17:26] LABS: YEAST,URINE FEW /HPF
[2021-07-05 17:27] LABS: AMPHETAMINE SCREEN, URINE NEGATIVE (NEGATIVE); BARBITURATE SCREEN URINE NEGATIVE (NEGATIVE); BENZODIAZEPINES SCREEN URINE NEGATIVE (NEGATIVE); CANNABINOID SCREEN, URINE NEGATIVE (NEGATIVE); COCAINE SCREEN URINE NEGATIVE (NEGATIVE); METHADONE STAT NEGATIVE (NEGATIVE); METHAMPHETAMINE SCREEN URINE S NEGATIVE (NEGATIVE); OPIATE SCREEN URINE NEGATIVE (NEGATIVE); OXYCODONE STAT NEGATIVE (NEGATIVE); PROPOXYPHENE STAT NEGATIVE (NEGATIVE); TRICYCLIC ANTIDEPRESSANTS SCRE POSITIVE (NEGATIVE)
[2021-07-05] MEDS ORDERED: D5W 1000 ML IV SOLUTION 1,000 ML IV SCH (17:30)
[2021-07-05 17:32] LABS: PROTHROMBIN TIME PATIENT 13.7 SEC (12.2-14.7)
[2021-07-05 17:34] LABS: MAGNESIUM 1.9 MG/DL (1.6-2.4)
[2021-07-05 17:37] LABS: ALANINE AMINOTRANSFERASE 29 U/L (0-55); ALBUMIN 2.7 GM/DL (3.2-4.5); ALKALINE PHOSPHATASE 197 U/L (40-136); BILIRUBIN,TOTAL 0.3 MG/DL (0.1-1.0); BUN/CREATININE RATIO 15; CALCIUM 8.7 MG/DL (8.5-10.1); CARBON DIOXIDE 26 MMOL/L (21-32); CHLORIDE 107 MMOL/L (98-107); CREATININE SERUM 1.15 MG/DL (0.60-1.30); GFR ESTIMATED 75; GLUCOSE 102 MG/DL (70-105); POTASSIUM 4.7 MMOL/L (3.6-5.0); SODIUM 144 MMOL/L (135-145); TOTAL PROTEIN 7.3 GM/DL (6.4-8.2)
--- NOTE | 2021-07-05 18:00 | Diagnostic Imaging Report ---
PROCEDURE: CT abdomen and pelvis without contrast. TECHNIQUE: Multiple contiguous axial images were obtained through the abdomen and pelvis without the use of intravenous contrast. Auto Exposure Controls were utilized during the CT exam to meet ALARA standards for radiation dose reduction. INDICATION: Abdominal pain and distention. Difficulty urinating. EXAMINATION: CT abdomen and pelvis without contrast, 07/05/2021. COMPARISON: 08/17/2018. FINDINGS: There are changes of gynecomastia, bilaterally. The visualized lungs demonstrate scattered bilateral infiltrates in a pattern suspicious for Covid which should be clinically excluded. There is lobularity along the periphery of the liver likely due to a history of cirrhosis. There is evidence of previous cholecystectomy. The pancreas, adrenal glands and spleen are unremarkable. There is no acute process in either kidney with punctate stones in the right kidney noted. There is no hydronephrosis or ureteral stones noted. There is mild lobularity of the periphery of the urinary bladder likely due to developing trabeculation. The urinary bladder is distended. Correlate clinically for bladder outlet obstructive process. There is no ascites or free air. The appendix is normal. There is nonspecific fat stranding, bilaterally, along the lateral aspects of the anterior abdomen subcutaneously perhaps due to injections. Correlate clinically. The osseous structures demonstrate a nonspecific sclerotic focus with central lucencies within the right femoral neck. This finding is stable from prior CT and therefore likely a benign process but better characterized with nonemergent MRI. There is an age-indeterminate compression fracture at L2. Correlate clinically for any point tenderness. IMPRESSION: 1. Bibasilar scattered infiltrates suspicious for Covid. 2. Changes of cirrhosis. 3. Lobular appearing distended urinary bladder correlate clinically for bladder outlet obstructive process. 4. Lesion in the right femoral neck likely benign given stability from previous CT. MRI non-emergently could further characterize. 5. Fat stranding in the subcutaneous soft tissues of the abdomen likely iatrogenic correlate clinically. 6. Compression deformity at L2 age indeterminate. Other findings as above. Dictated by: Dictated on workstation # [id number]
[2021-07-05] MEDS ORDERED: RT-ALBUTEROL HFA 8.5 GM INHALER IH STA (18:11)
[2021-07-05] MEDS ORDERED: AZITHROMYCIN 250 MG TAB (ZITHROMAX) PO STA (18:11)
--- NOTE | 2021-07-05 18:12 | Diagnostic Imaging Report ---
INDICATION: Cough with recent Covid exposure. EXAMINATION: Chest, 07/05/2021. COMPARISON: 07/31/2019. FINDINGS: There are scattered patchy infiltrates throughout both lungs. No effusions or pneumothorax. Heart is normal. Pulmonary vasculature is slightly congested. IMPRESSION: Diffuse scattered infiltrates. Dictated by: Dictated on workstation # [id number]
[2021-07-05] MEDS ORDERED: AZIT500T9 PO (18:52)
== END 2021-07-05 19:37 | disposition home or self-care (01) ==
LOC: ER FS 16:46
DX: E11.649 Type 2 diabetes mellitus with hypoglycemia without coma (principal); E78.00 Pure hypercholesterolemia, unspecified; K21.9 Gastro-esophageal reflux disease without esophagitis; I10 Essential (primary) hypertension; E66.9 Obesity, unspecified; G89.29 Other chronic pain; M54.9 Dorsalgia, unspecified; Z20.822 Contact with and (suspected) exposure to COVID-19; Z68.36 Body mass index [BMI] 36.0-36.9, adult; Z79.4 Long term (current) use of insulin; Z79.891 Long term (current) use of opiate analgesic; Z79.899 Other long term (current) drug therapy
CPT/HCPCS: 36415; 71045; 74176; 80053; 80306; 81000; 82947; 83605; 83735; 83880; 84484; 85025; 85610; 85730; 86141; 87040; 87636; 87804; 93005; 93041

== ENCOUNTER 2021-07-09 10:45 | Emergency (ER) | payer MEDICARE ==
[~2021-07-09] VITALS: Ht 170 cm; Wt 52.0 kg
[~2021-07-09 10:45] MED LIST changes: +AZIT500T9 PO
--- NOTE | 2021-07-09 11:14 | ED General ---
General Chief Complaint: Glucose Problems Stated Complaint: COVID+ Nursing Triage Note: PT WAS FOUND UNRESPONSIVE WITH A BLOOD SUGAR OF 15. HE TOOK HIS INSULIN THIS AM AND DID NOT EAT. PT DID THIS SAME THING LAST WEEK. Source of Information: Patient, EMS Exam Limitations: No Limitations History of Present Illness Date Seen by Provider: Jul 09, 2021 Time Seen by Provider: 10:30 Initial Comments Patient is a 55-year-old insulin-dependent -[place] male who presents with altered mental status with hypoglycemia. Patient found unresponsive this morning. Up reportedly he woke up took his long-acting and short acting insulin and did not eat as he plans to work out at the gym. He then became confused and unresponsive. No seizure activity was witnessed. EMS was contacted and the patient's blood sugar was 15. He was giving an amp of D50 with return to baseline mental status. Patient hasn't done this multiple times and states he routinely does not eat for several hours after taking his NovoLog. EMS has been contacted by his house multiple times including twice this week for the same. States he has not been told by his provider that he needs to eat within 20 minutes taking short acting insulin he has not had any recent changes to his diabetic regimen or illnesses. No other symptoms or complaints Timing/Duration: 4-6 Hours Severity: Moderate Modifying Factors: improves with Other Associated Systoms: Other Allergies and Home Medications Allergies Coded Allergies: No Known Drug Allergies (Unverified , 08/17/18) Patient Home Medication List Home Medication List Reviewed: Yes Amitriptyline HCl (Amitriptyline HCl) 50 Mg Tablet, 50 MG PO HS, (Reported) Entered as Reported by: DAYNA BORJAS on 08/17/181909 Atorvastatin Calcium (Atorvastatin Calcium) 40 Mg Tablet, 40 MG PO HS, (Reported) Entered as Reported by: DAYNA BORJAS on 08/17/181909 Azithromycin (Azithromycin) 500 Mg Tablet, 500 MG PO DAILY Prescribed by: BRIANA VALDEZ on 07/05/211851 Gabapentin (Gabapentin) 600 Mg Tablet, 600 MG PO TID, (Reported) Entered as Reported by: DAYNA BORJAS on 08/17/181909 Hydrocodone Bit/Acetaminophen (Lortab 5 Mg Tablet) 1 Tab Tab, 1 TAB PO Q4-6HR PRN for PAIN-MODERATE Prescribed by: DAVID HERNÁNDEZ on 08/19/18927 Insulin Aspart (Novolog Flexpen) 300 Units/3 Ml Solution, 15 UNITS SC TIDAC, (Reported) Entered as Reported by: DAYNA BORJAS on 08/17/181909 Insulin Detemir (Levemir Flextouch) 100 Unit/1 Ml Insuln.pen, 25 UNITS SC BID, (Reported) Entered as Reported by: DAYNA BORJAS on 08/17/181909 Metoclopramide HCl (Metoclopramide HCl) 10 Mg Tablet, 10 MG PO TID, (Reported) Entered as Reported by: DAYNA BORJAS on 08/17/181909 Metoprolol Tartrate (Metoprolol Tartrate) 25 Mg Tablet, 25 MG PO BID Prescribed by: DAVID HERNÁNDEZ on 08/19/18927 Omeprazole (Omeprazole) 40 Mg Capsule.dr, 40 MG PO DAILY, (Reported) Entered as Reported by: DAYNA BORJAS on 08/17/181909 Tramadol HCl (Tramadol HCl) 50 Mg Tablet, 50 MG PO Q6H PRN for PAIN Prescribed by: MARCIA BOLAÑOS on 06/19/21 1333 Review of Systems Review of Systems Constitutional: see HPI EENTM: see HPI Respiratory: see HPI Cardiovascular: see HPI Gastrointestinal: see HPI Genitourinary: see HPI Musculoskeletal: see HPI Skin: see HPI Psychiatric/Neurological: See HPI Hematologic/Lymphatic: See HPI Immunological/Allergic: see HPI All Other Systems Reviewed Negative Unless Noted: Yes Past Okermex-Mbxowp-Pjkubt Hx Patient Social History Tobacco Use?: Yes Smokeless Tobacco Frequency: Current Everyday User Use of E-Cig and/or Vaping dev: No Substance use?: No Alcohol Use?: No Pt feels they are or have been: No Immunizations Up To Date Tetanus Booster (TDap): Unknown PED Vaccines UTD: Yes First/Initial COVID19 Vaccinat: October 2020 Second COVID19 Vaccination Ryan: October 2020 Third COVID19 Vaccination Date: October 2020 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: ALIN Seasonal Allergies Seasonal Allergies: No Past Medical History Surgery/Hospitalization HX: DM, Poor Compliance Surgeries: Yes (Rods placed in leg and back, fatty abdominal tumor removed.) Gallbladder, Orthopedic Respiratory: No Cardiac: Yes Chronic Edema/Swelling, High Cholesterol, Hypertension Neurological: Yes Neuropathy Genitourinary: No Gastrointestinal: Yes (GASTROPARESIS ???; S/P CHOLECYSTECTOMY; HEPATITIS C--S/P TREATMENT) Gastroesophageal Reflux, Hepatitis, Gall Bladder Disease Musculoskeletal: Yes (RODS IN BACK AND FEMUR; CHRONIC JOINT PAIN) Back Injury, Chronic Back Pain Endocrine: Yes (OBESE; NON-COMPLIANCE WITH DM-DOES NOT CHECK BLOOD SUGAR OR FOLLOW DIET. ) Diabetes, Insulin dep HEENT: No Cancer: No Psychosocial: No Integumentary: No Blood Disorders: No Adverse Reaction/Blood Tranf: No Physical Exam Vital Signs Vital Signs - First Documented 07/09/21 10:52 Temp 36.7 Pulse 90 Resp 14 B/P (MAP) 189/107 (134) Pulse Ox 97 O2 Delivery Room Air Capillary Refill : Less Than 3 Seconds Height, Weight, BMI Height: 5'6.00" Weight: 234lbs. 0.0oz. [id number]; 17.00 BMI Method:Stated General Appearance: No Apparent Distress, WD/WN Eyes: Bilateral Eye Normal Inspection, Bilateral Eye PERRL, Bilateral Eye EOMI HEENT: PERRL/EOMI, Normal ENT Inspection, Pharynx Normal Neck: Full Range of Motion, Non Tender, Supple Respiratory: Chest Non Tender, Lungs Clear Cardiovascular: Regular Rate, Rhythm Gastrointestinal: Soft Neurologic/Psychiatric: Alert, Oriented x3, reel cutter II-XII Norm as Tested Focused Exam Sepsis Stage: Ruled Out Progress/Results/Core Measures Suspected Sepsis SIRS Temperature: Pulse: 90 Respiratory Rate: 14 Blood Pressure 189 /107 Mean: 134 Results/Orders My Orders Orders - MARCIA BOLAÑOS (07/09/21 10:51) Vital Signs/I&O 07/09/21 10:52 Temp 36.7 Pulse 90 Resp 14 B/P (MAP) 189/107 (134) Pulse Ox 97 O2 Delivery Room Air Capillary Refill : Less Than 3 Seconds Blood Pressure Mean: 134 Departure Communication (Admissions) Patient tolerates caloric intake in the ED. Monitored with stable blood sugar. Explicit diabetic, dietary and home monitoring instructions provided. Patient agrees to check blood sugar throughout the day and eat 20 minutes within taking his short acting insulin. He agrees to follow-up with his PCP for further management. Return precautions reviewed. Patient verbalizes understanding agreement discharge instructions prior to departure Impression Primary Impression: Hypoglycemia Disposition: HOME, SELF-CARE Condition: Stable Departure-Patient Inst. Decision time for Depature: 11:59 Referrals: RACQUEL RICHARDSON MD (PCP/Family) Primary Care Physician Patient Instructions: Low Blood Sugar, Adult (DC) Add. Discharge Instructions: Please check your blood sugar every 1 hour upon returning home. You must be prepared and eat within 20 minutes of taking your NovoLog. Please keep diabetic blood sugar log and follow-up with your PCP in 3 to 5 days for additional management. Return to the ED if new or worsening symptoms. All discharge instructions reviewed with patient and/or family. Voiced understanding. MARCIA BOLAÑOS DO Jul 09, 2021 11:14
[2021-07-09 11:50] VITALS: BP 137/78
== END 2021-07-09 12:01 | disposition home or self-care (01) ==
LOC: EDUNIT# 10:45 → ER FS 10:47
DX: E11.649 Type 2 diabetes mellitus with hypoglycemia without coma (principal); E78.00 Pure hypercholesterolemia, unspecified; I10 Essential (primary) hypertension; K21.9 Gastro-esophageal reflux disease without esophagitis; F17.290 Nicotine dependence, other tobacco product, uncomplicated; Z79.899 Other long term (current) drug therapy; Z79.4 Long term (current) use of insulin
CPT/HCPCS: 82947

== ENCOUNTER 2022-02-18 14:08 | Emergency (ER) | payer MEDICARE, OTHER ==
[~2022-02-18] VITALS: Ht 170.2 cm; Wt 104.3 kg
[2022-02-18] MEDS ORDERED: BACITRACIN OINTMENT 28 GM TUBE TOP STA (14:23)
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
[2022-02-18 14:31] VITALS: BP 133/83
== END 2022-02-18 14:38 ==
LOC: EDUNIT# 14:08 → ER FS 14:09
DX: S80.811A Abrasion, right lower leg, initial encounter (principal); E66.9 Obesity, unspecified; Z68.36 Body mass index [BMI] 36.0-36.9, adult; Z87.891 Personal history of nicotine dependence; Y04.0XXA Assault by unarmed brawl or fight, initial encounter
CPT/HCPCS: 82947; 99282

== ENCOUNTER 2023-01-12 09:44 | Emergency (ER) | payer MEDICARE, MEDICAID ==
[~2023-01-12 09:44] MED LIST changes: -INSU100I29 SC; +INSU100I30 SC
--- NOTE | 2023-01-12 09:57 | ED General ---
General Stated Complaint: AMS; LETHARGY Source of Information: Patient, EMS, Family, Old Records Exam Limitations: No Limitations History of Present Illness Date Seen by Provider: Jan 12, 2023 Time Seen by Provider: 09:49 Initial Comments 57-year-old male with past medical history of DM, ESRD on HD (M,W,F), and recent LUE and LLE amputations coming in via EMS due to AMS. Reportedly, the patient got out of [facility] facility on the due to complications from his recent amputations. He lives with his mother who is his fish cleaner machine tender and she is over 80 years old, and very frail per EMS. They have been to his house 3 times in less than 24 hours due to her physically unable to pick them up to do things such as go to the commode. She has a Nikolas lift, and reportedly dropped him on his head unable to use it. Reportedly, she is physically unable to take care of the patient, and given his amputations, he is unable to take care of himself. She states that he is not acting normal this morning. EMS was scheduled to go back out to the house around 11 AM to put him in a car to assist getting him to dialysis today. He is complaining of pain generally, but does not specify where. Denies any fever, cough, diarrhea, vomiting, new weakness or numbness, or any other concerns. Allergies and Home Medications Allergies Coded Allergies: No Known Drug Allergies (Unverified , 08/17/18) Patient Home Medication List Home Medication List Reviewed: Yes Amitriptyline HCl (Amitriptyline HCl) 50 Mg Tablet, 50 MG PO HS, (Reported) Entered as Reported by: DAYNA BORJAS on 08/17/181909 Atorvastatin Calcium (Atorvastatin Calcium) 40 Mg Tablet, 40 MG PO HS, (Reported) Entered as Reported by: DAYAN BORJAS on 08/17/181909 Azithromycin (Azithromycin) 500 Mg Tablet, 500 MG PO DAILY Prescribed by: BRIANA VALDEZ on 07/05/211851 Gabapentin (Gabapentin) 600 Mg Tablet, 600 MG PO TID, (Reported) Entered as Reported by: DAYNA BORJAS on 08/17/181909 Hydrocodone Bit/Acetaminophen (Lortab 5 Mg Tablet) 1 Tab Tab, 1 TAB PO Q4-6HR PRN for PAIN-MODERATE Prescribed by: DAVID HERNÁNDEZ on 08/19/18927 Insulin Aspart (Novolog Flexpen) 300 Units/3 Ml Solution, 15 UNITS SC TIDAC, (Reported) Entered as Reported by: DAYNA BORJAS on 08/17/181909 Insulin Detemir (Levemir Flextouch) 100 Unit/1 Ml Insuln.pen, 25 UNITS SC BID, (Reported) Entered as Reported by: DAYNA BORJAS on 08/17/181909 Metoclopramide HCl (Metoclopramide HCl) 10 Mg Tablet, 10 MG PO TID, (Reported) Entered as Reported by: DAYNA BORJAS on 08/17/181909 Metoprolol Tartrate (Metoprolol Tartrate) 25 Mg Tablet, 25 MG PO BID Prescribed by: DAVID HERNÁNDEZ on 08/19/18927 Omeprazole (Omeprazole) 40 Mg Capsule.dr, 40 MG PO DAILY, (Reported) Entered as Reported by: DAYNA BORJAS on 08/17/181909 Tramadol HCl (Tramadol HCl) 50 Mg Tablet, 50 MG PO Q6H PRN for PAIN Prescribed by: MARCIA BOLAÑOS on 06/19/21 1333 Review of Systems Review of Systems Constitutional: No fever EENTM: other (Hard of hearing) Respiratory: no symptoms reported Cardiovascular: no symptoms reported Gastrointestinal: no symptoms reported Genitourinary: no symptoms reported Musculoskeletal: see HPI Skin: no symptoms reported Psychiatric/Neurological: See HPI Hematologic/Lymphatic: No Symptoms Reported Past Jkkcyuu-Qwojhx-Siyvnf Hx Immunizations Up To Date Tetanus Booster (TDap): Unknown PED Vaccines UTD: Yes First/Initial COVID19 Vaccinat: October 2020 Second COVID19 Vaccination Ryan: October 2020 Third COVID19 Vaccination Date: October 2020 Seasonal Allergies Seasonal Allergies: No Past Medical History Surgery/Hospitalization HX: IDDM, LLE and LUE amputations Surgeries: Yes (Rods placed in leg and back, fatty abdominal tumor removed.) Gallbladder, Orthopedic Respiratory: No Cardiac: Yes Chronic Edema/Swelling, High Cholesterol, Hypertension Neurological: Yes Neuropathy Genitourinary: No Gastrointestinal: Yes (GASTROPARESIS ???; S/P CHOLECYSTECTOMY; HEPATITIS C--S/P TREATMENT) Gastroesophageal Reflux, Hepatitis, Gall Bladder Disease Musculoskeletal: Yes (RODS IN BACK AND FEMUR; CHRONIC JOINT PAIN) Back Injury, Chronic Back Pain Endocrine: Yes (OBESE; NON-COMPLIANCE WITH DM-DOES NOT CHECK BLOOD SUGAR OR FOLLOW DIET. ) Diabetes, Insulin dep HEENT: No Cancer: No Psychosocial: No Integumentary: No Blood Disorders: No Adverse Reaction/Blood Tranf: No Physical Exam Vital Signs Vital Signs - First Documented 01/12/23 09:50 Temp 35.7 Pulse 85 Resp 18 B/P (MAP) 98/76 (83) Pulse Ox 98 O2 Delivery Room Air Capillary Refill : Height, Weight, BMI Height: 5'6.00" Weight: 234lbs. 0.0oz. 106.784181ai; 36.00 BMI Method:Stated General Appearance: No Apparent Distress, WD/WN Eyes: Bilateral Eye Normal Inspection HEENT: PERRL/EOMI, Normal ENT Inspection, Pharynx Normal Neck: Full Range of Motion, Normal Inspection, Non Tender, Supple Respiratory: Chest Non Tender, Lungs Clear, Normal Breath Sounds, No Accessory Muscle Use, No Respiratory Distress Cardiovascular: Regular Rate, Rhythm, No Edema, Normal Peripheral Pulses Gastrointestinal: Normal Bowel Sounds, Non Tender, Soft; No Distended, No Guarding Back: Normal Inspection, No CVA Tenderness Extremity: Normal Capillary Refill, Normal Range of Motion, Non Tender, No Calf Tenderness, No Pedal Edema Neurologic/Psychiatric: Alert, No Motor/Sensory Deficits, Normal Mood/Affect, Other (oriented to person and date) Skin: Normal Color, Warm/Dry Focused Exam Lactate Level 01/12/23 18:40: Lactic Acid Level 0.99 Lactic Acid Level Laboratory Tests Test 01/12/23 18:40 Lactic Acid Level 0.99 MMOL/L (0.50-2.00) Procedures/Interventions Lumen: triple Central Line Procedure: sterile drapes applied (Chlorhexidine prep), sterile dressing applied Position: femoral (R) Anesthesia: Lidocaine Volume Anesthetic (ccs): 5 Complications: none Post Position: sutured, good blood return Right femoral line chosen due to the patient's dialysis catheter in his right IJ. Ultrasound guidance was used in real-time. Patient tolerated the procedure well. Progress/Results/Core Measures Suspected Sepsis SIRS Temperature: Pulse: Respiratory Rate: Laboratory Tests 01/12/23 09:59: White Blood Count 6.3 Blood Pressure / Mean: 01/12/23 18:40: Lactic Acid Level 0.99 Laboratory Tests 7/31/23 09:59: Creatinine 5.55H, INR Comment 1.1, Platelet Count 156, Total Bilirubin 0.6 Results/Orders Lab Results Laboratory Tests Test 01/12/23 09:59 01/12/23 18:00 01/12/23 18:40 Range/Units White Blood Count 6.3 4.3-11.0 10^3/uL Red Blood Count 3.10 L 4.30-5.52 10^6/uL Hemoglobin 9.1 L 13.3-17.7 g/dL Hematocrit 30 L 40-54 % Mean Corpuscular Volume 96 80-99 fL Mean Corpuscular Hemoglobin 29 25-34 pg Mean Corpuscular Hemoglobin Concent 31 L 32-36 g/dL Red Cell Distribution Width 16.8 H 10.0-14.5 % Platelet Count 156 130-400 10^3/uL Mean Platelet Volume 11.3 9.0-12.2 fL Immature Granulocyte % (Auto) 0 % Neutrophils (%) (Auto) 58 42-75 % Lymphocytes (%) (Auto) 24 12-44 % Monocytes (%) (Auto) 15 H 0-12 % Eosinophils (%) (Auto) 2 0-10 % Basophils (%) (Auto) 1 0-10 % Neutrophils # (Auto) 3.7 1.8-7.8 10^3/uL Lymphocytes # (Auto) 1.5 1.0-4.0 10^3/uL Monocytes # (Auto) 1.0 0.0-1.0 10^3/uL Eosinophils # (Auto) 0.1 0.0-0.3 10^3/uL Basophils # (Auto) 0.0 0.0-0.1 10^3/uL Immature Granulocyte # (Auto) 0.0 0.0-0.1 10^3/uL Percent Immature Platelet Fraction 6.5 0.0-7.6 % Prothrombin Time 15.0 H 12.2-14.7 SEC INR Comment 1.1 0.8-1.4 Activated Partial Thromboplast Time 39 H 24-35 SEC Sodium Level 137 135-145 MMOL/L Potassium Level 4.2 3.6-5.0 MMOL/L Chloride Level 93 L 98-107 MMOL/L Carbon Dioxide Level 23 21-32 MMOL/L Anion Gap 21 H 5-14 MMOL/L Blood Urea Nitrogen 36 H 7-18 MG/DL Creatinine 5.55 H 0.60-1.30 MG/DL Estimat Glomerular Filtration Rate 11 BUN/Creatinine Ratio 6 Glucose Level 155 H 70-105 MG/DL Calcium Level 11.0 H 8.5-10.1 MG/DL Corrected Calcium 11.5 H 8.5-10.1 MG/DL Magnesium Level 2.3 1.6-2.4 MG/DL Total Bilirubin 0.6 0.1-1.0 MG/DL Aspartate Amino Transf (AST/SGOT) 31 5-34 U/L Alanine Aminotransferase (ALT/SGPT) 24 0-55 U/L Alkaline Phosphatase 269 H 40-136 U/L Troponin I < 0.30 <0.30 NG/ML C-Reactive Protein 2.82 H <0.50 MG/DL Total Protein 8.5 H 6.4-8.2 GM/DL Albumin 3.4 3.2-4.5 GM/DL Lipase 11 8-78 U/L Glucometer 129 H 70-110 MG/DL Lactic Acid Level 0.99 0.50-2.00 MMOL/L My Orders Orders - MADDI VELAZCO MD Ct Head/Cervical Spine Wo (01/12/23 09:52) Cbc With Automated Diff (01/12/23 09:52) Comprehensive Metabolic Panel (01/12/23 09:52) Lipase (01/12/23 09:52) Magnesium (01/12/23 09:52) Protime With Inr (01/12/23:52) Partial Thromboplastin Time (01/12/23 09:52) Troponin I Fs (01/12/23 09:52) Ed Iv/Invasive Line Start (01/12/23 09:52) Ekg Tracing (01/12/23 09:52) Monitor-Rhythm Ecg Trace Only (01/12/23 09:52) Chest 1 View Ap/Pa Only (01/12/23 09:52) Crp Fs (01/12/23 10:20) Blood Culture (01/12/23 18:37) Lactic Acid Analyzer (01/12/23 18:37) Cefepime Injection (Cefepime Injection) (01/12/23 18:45) Ns Iv 500 Ml (Sodium Chloride 0.9%) (01/12/23 18:37) Ns Iv 500 Ml (Sodium Chloride 0.9%) (01/12/23 19:11) Medications Given in ED Current Medications Medications Dose Ordered Sig/Jessica Route Start Time Stop Time Status Last Admin Dose Admin Cefepime HCl 1000 mg/Sodium Chloride 50 ml @ 100 mls/hr ONCE ONCE IV 01/12/23 18:45 01/12/23 19:14 DC 01/12/23 18:50 100 MLS/HR Vital Signs/I&O 01/12/23 09:50 Temp 35.7 Pulse 85 Resp 18 B/P (MAP) 98/76 (83) Pulse Ox 98 O2 Delivery Room Air Capillary Refill : Progress Note : Progress Note 57-year-old male with above history coming in via EMS from home due to altered mental status. ABCs were intact and vitals were stable on presentation. Initial blood pressure 98/76 which although lower systolic than his usual, his MAP is reassuring. Physical exam is showing a left lower extremity amputation with the wound slightly open but good granulation tissue. It likely had dehisced shortly after the surgery and now is filling in slowly. No signs of active infection in regards to the left lower extremity. He is slightly confused, does not know where he is or why he is here. #1 has been called from his home 3 times in roughly 12 hours as his elderly mother is unable to take care of him, and he is unable to take care of himself. He has been reported that she try to get him on a [employer]olas lift, and he fell and hit his head. An IV was placed and basic labs were obtained and were significant for a normal white blood cell count, elevated creatinine which is expected, potassium of 4.2, negative troponin, slightly elevated CRP which is nonspecific. Chest x-ray on my interpretation appears similar to prior, left lung lower likely atelectasis since it is similar to multiple prior. CT head and cervical spine ordered due to the fall. On my interpretation I do not see any large intracranial hemorrhage or large fracture or dislocation. EKG ordered and interpreted by me showing no acute ischemic changes. I discussed the case with the patient's mother via phone, and she states she is quite literally unable to take care of him, and once again stated the patient has been confused. On top of the three different 911 calls in the past day, they have also had to call people over to the house otherwise emergently to help with general things such as getting him off of the commode. I contacted [facility] to discuss transfer given he missed dialysis today as well. Patient accepted for transfer by Dr. Gifford. While waiting for a bed for the patient to be transferred, repeat blood pressure was in the 70's systolic over 8 hours after initial presentation. Lactic acid and blood cultures sent at that time since his clinical picture has changed. He was given 500cc of IVF initially given his ESRD and we will continue to give fluids after that at 250cc at a time. He was empirically given cefepime. After 1 L of IV fluids, I do not want to give him more given his ESRD status and I am concerned he will be volume overloaded. A central line was placed in his right femoral due to his right IJ having a dialysis catheter. Patient tolerated this well. Norepinephrine was started. I contacted [facility] again, and this time discussed the case with the ICU doctor given he will no longer be able to go to the floor. He was accepted by Dr. Basurto. ECG Initial ECG Impression Date: Jan 12, 2023 Initial ECG Impression Time: 09:55 Initial ECG Rate: 90 Initial ECG Rhythm: Normal Sinus Comment Narrow QRS, normal axis, no significant ST elevation, there are some ST depression subtly in the lateral leads Diagnostic Imaging Diagonstic Imaging: Xray (chest), CT (head and c spine) Comments [facility] [place] [place] NAME: [facility] REC#: [id number] PT STATUS: REG ER : 1965 PHYSICIAN: MADDI VELAZCO MD ADMIT DATE: 01/12/23/ER FS Draft Date of Exam:01/12/23 CHEST 1 VIEW AP/PA ONLY INDICATION: Fall, altered mental status. TECHNIQUE: Single view chest at 10:00 AM. CORRELATION STUDY: 07/05/2021. FINDINGS: The heart size, mediastinal configuration, and pulmonary vascularity are within normal limits. There is minimal atelectasis or infiltrate in the left lung base. Lung estrada, however, overall are improved in aeration from prior. Right IJ dialysis catheter has been placed with tip over the right atrium. IMPRESSION: 1. Minimal infiltrate or atelectasis at the left lung base. 2. Right IJ dialysis catheter has been placed with tip over the right atrium. 3. Cardiac enlargement without overt failure. Dictated on workstation # [id number] Dict: 01/12/23 1010 Trans: 01/12/23 1017 [id number] Interpreted by: IMANI ABRAMS DO Electronically signed by: [facility] [place] [place] NAME: [facility] REC#: [id number] PT STATUS: REG ER : 1965 PHYSICIAN: MADDI VELAZCO MD ADMIT DATE: 01/12/23/ER FS Signed Date of Exam:01/12/23 CT HEAD/CERVICAL SPINE WO PROCEDURE: CT head and CT cervical spine without contrast. TECHNIQUE: Multiple contiguous axial images were obtained through the brain and cervical spine without the use of intravenous contrast. Sagittal and coronal reformations through the cervical spine were then performed. Auto Exposure Controls were utilized during the CT exam to meet ALARA standards for radiation dose reduction. INDICATION: Fall with mental status COMPARISON: None. FINDINGS: No acute intracranial hemorrhage. The echeverria-white matter differentiation is preserved. The ventricles and cortical sulci are normal. No midline shift or mass effect. No intracranial mass or fluid collection. The subarachnoid spaces are normal. The sella is normal. The paranasal sinuses and mastoids are clear. The skull is intact. The midline craniocervical anatomy is normal. No Chiari malformation. Straightening of the cervical lordosis. No significant listhesis. Mild multilevel facet arthritis. No lytic or sclerotic bone lesion. No acute fracture or dislocation of the cervical spine. No high density fluid within the spinal canal. Mild multilevel spinal canal and neural foraminal narrowing due to degenerative change. Included views of the lung apices demonstrate no significant abnormality. The soft tissues of the neck demonstrate carotid atherosclerosis. IMPRESSION: No acute fracture or dislocation of the cervical spine. No acute intracranial hemorrhage. No large vascular territory daniels-white loss. No intracranial mass, midline shift, or hydrocephalus. Dictated by: Dictated on workstation # [id number] Dict: 01/12/23 1027 Trans: 01/12/23 1030 [facility] [id number] Interpreted by: MAC SELF DO Electronically signed by: MAC SELF DO 01/12/23 1030 Critical Care Note Critical Care Start Time: 18:45 Stop Time: 20:02 Total Time (minutes) 36 Progress Patient was in shock and hemodynamically unstable. All time billed for critical care was separate than procedures. Departure Impression Primary Impression: ESRD (end stage renal disease) on dialysis Additional Impressions: AMS (altered mental status) Qualified Codes: R41.0 - Disorientation, unspecified Debility Frequent falls Shock Disposition: XFER SHT-TRM HOSP Condition: Stable Admissions Decision to Admit/Date: Jan 12, 2023 Time/Decision to Admit Time: 10:48 Transfer BH Medically Cleared for Xfer: Yes Transfer Reason: Exceeds level of care (needs nephrology) Time Spoke to Accepting Phy: 12:45 Transfer Progress Notes Contacted [facility] at 1048. They called back around 11:30 for more info. Got confirmation of acceptance by Dr. Gifford at 12:45. Still did not have a bed at 1845 and patient's blood pressure dropped. Called [facility] back and now got accepted by Dr. Basurto for the ICU. Transfer Facility: [facility] Method of Transfer: Air Departure-Patient Inst. Referrals: RACQUEL RICHARDSON MD (PCP/Family) Primary Care Physician MADDI VELAZCO MD Jan 12, 2023 09:57
--- NOTE | 2023-01-12 10:18 | Diagnostic Imaging Report ---
INDICATION: Fall, altered mental status. TECHNIQUE: Single view chest at 10:00 AM. CORRELATION STUDY: 07/05/2021. FINDINGS: The heart size, mediastinal configuration, and pulmonary vascularity are within normal limits. There is minimal atelectasis or infiltrate in the left lung base. Lung estrada, however, overall are improved in aeration from prior. Right IJ dialysis catheter has been placed with tip over the right atrium. IMPRESSION: 1. Minimal infiltrate or atelectasis at the left lung base. 2. Right IJ dialysis catheter has been placed with tip over the right atrium. 3. Cardiac enlargement without overt failure. Dictated by: Dictated on workstation # [id number]
[2023-01-12 10:20] LABS: BASOPHILS % (AUTO) 1 % (0-10); EOSINOPHILS # (AUTO) 0.1 10^3/uL (0.0-0.3); EOSINOPHILS % (AUTO) 2 % (0-10); HEMATOCRIT 30 % (40-54); HEMOGLOBIN 9.1 g/dL (13.3-17.7); LYMPHOCYTES # (AUTO) 1.5 10^3/uL (1.0-4.0); LYMPHOCYTES % (AUTO) 24 % (12-44); MEAN CORPUSCULAR HEMOGLOBIN 29 pg (25-34); MEAN CORPUSCULAR HGB CONC 31 g/dL (32-36); MEAN CORPUSCULAR VOLUME 96 fL (80-99); MEAN PLATELET VOLUME 11.3 fL (9.0-12.2); MONOCYTES % (AUTO) 15 % (0-12); NEUTROPHILS # (AUTO) 3.7 10^3/uL (1.8-7.8); NEUTROPHILS % (AUTO) 58 % (42-75); PLATELET COUNT 156 10^3/uL (130-400); WHITE BLOOD COUNT 6.3 10^3/uL (4.3-11.0)
[2023-01-12 10:25] LABS: INR 1.1 (0.8-1.4)
--- NOTE | 2023-01-12 10:31 | Diagnostic Imaging Report ---
PROCEDURE: CT head and CT cervical spine without contrast. TECHNIQUE: Multiple contiguous axial images were obtained through the brain and cervical spine without the use of intravenous contrast. Sagittal and coronal reformations through the cervical spine were then performed. Auto Exposure Controls were utilized during the CT exam to meet ALARA standards for radiation dose reduction. INDICATION: Fall with mental status COMPARISON: None. FINDINGS: No acute intracranial hemorrhage. The echeverria-white matter differentiation is preserved. The ventricles and cortical sulci are normal. No midline shift or mass effect. No intracranial mass or fluid collection. The subarachnoid spaces are normal. The sella is normal. The paranasal sinuses and mastoids are clear. The skull is intact. The midline craniocervical anatomy is normal. No Chiari malformation. Straightening of the cervical lordosis. No significant listhesis. Mild multilevel facet arthritis. No lytic or sclerotic bone lesion. No acute fracture or dislocation of the cervical spine. No high density fluid within the spinal canal. Mild multilevel spinal canal and neural foraminal narrowing due to degenerative change. Included views of the lung apices demonstrate no significant abnormality. The soft tissues of the neck demonstrate carotid atherosclerosis. IMPRESSION: No acute fracture or dislocation of the cervical spine. No acute intracranial hemorrhage. No large vascular territory daniels-white loss. No intracranial mass, midline shift, or hydrocephalus. Dictated by: Dictated on workstation # [id number]
[2023-01-12 10:38] LABS: BUN/CREATININE RATIO 6; CARBON DIOXIDE 23 MMOL/L (21-32); CHLORIDE 93 MMOL/L (98-107); CREATININE SERUM 5.55 MG/DL (0.60-1.30); GFR ESTIMATED 11; GLUCOSE 155 MG/DL (70-105); MAGNESIUM 2.3 MG/DL (1.6-2.4); POTASSIUM 4.2 MMOL/L (3.6-5.0); SODIUM 137 MMOL/L (135-145)
[2023-01-12 10:39] LABS: ALANINE AMINOTRANSFERASE 24 U/L (0-55); ALBUMIN 3.4 GM/DL (3.2-4.5); ALKALINE PHOSPHATASE 269 U/L (40-136); BILIRUBIN,TOTAL 0.6 MG/DL (0.1-1.0); LIPASE 11 U/L (8-78); TOTAL PROTEIN 8.5 GM/DL (6.4-8.2)
[2023-01-12] MEDS ORDERED: NS IV 500 ML 500 ML IV STA ×2 (18:37→19:11)
[2023-01-12] MEDS ORDERED: CEFEPIME INJECTION 1,000 MG in NS (IVPB) 50 ML 50 ML IV ONE (18:45)
[2023-01-12] MEDS ORDERED: NOREPINEPHRINE 8 MG/250 ML 250 ML IV STA (20:06)
--- NOTE | 2023-01-12 20:35 | Diagnostic Imaging Report ---
HISTORY: Femoral line placed COMPARISON: CT from 07/05/2021 TECHNIQUE: Frontal view of the abdomen. FINDINGS: The tip of the right femoral line projects over the low right SI joint. No distended loops of bowel are seen. The right dual-lumen dialysis catheter projects over the low atrium. Cholecystectomy clips are noted. No large collection of free air is seen. There are degenerative changes in the spine. IMPRESSION: 1. The right femoral line tip projects over the inferior right SI joint. Dictated by: Dictated on workstation # [id number]
[2023-01-12 20:39] VITALS: BP 159/70
== END 2023-01-12 20:39 | disposition short-term general hospital (02) ==
LOC: EDUNIT# 09:44 → ER FS 09:46
DX: E11.22 Type 2 diabetes mellitus with diabetic chronic kidney disease (principal); I12.0 Hypertensive chronic kidney disease with stage 5 chronic kidney disease or end stage renal disease; N18.6 End stage renal disease; R57.9 Shock, unspecified; R29.6 Repeated falls; R41.82 Altered mental status, unspecified; R53.81 Other malaise; E66.9 Obesity, unspecified; E11.40 Type 2 diabetes mellitus with diabetic neuropathy, unspecified; Z99.2 Dependence on renal dialysis; Z68.36 Body mass index [BMI] 36.0-36.9, adult; Z79.4 Long term (current) use of insulin
CPT/HCPCS: 36415; 70450; 71045; 72125; 74018; 80053; 82947; 83605; 83690; 83735; 84484; 85025; 85610; 85730; 86141; 87040; 93005; 93041

== ENCOUNTER → 2023-01-26 | Outpatient (CLI) | payer MEDICARE, MEDICAID | LOC: WOUNDCARE 08:32 | PROVIDERS: ATTEND Family Medicine | DX: T81.31XA Disruption of external operation (surgical) wound, not elsewhere classified, initial encounter (principal); T87.89 Other complications of amputation stump; I70.242 Atherosclerosis of native arteries of left leg with ulceration of calf; E11.622 Type 2 diabetes mellitus with other skin ulcer; E11.22 Type 2 diabetes mellitus with diabetic chronic kidney disease; N18.6 End stage renal disease; M62.81 Muscle weakness (generalized); E11.52 Type 2 diabetes mellitus with diabetic peripheral angiopathy with gangrene | CPT/HCPCS: 11042; A6197; G0463 ==

== ENCOUNTER → 2023-02-02 | Outpatient (CLI) | payer MEDICARE, MEDICAID | LOC: WOUNDCARE 08:33 | PROVIDERS: ATTEND Family Medicine | DX: T81.31XA Disruption of external operation (surgical) wound, not elsewhere classified, initial encounter (principal); T87.89 Other complications of amputation stump; I70.248 Atherosclerosis of native arteries of left leg with ulceration of other part of lower leg; E11.622 Type 2 diabetes mellitus with other skin ulcer; E11.22 Type 2 diabetes mellitus with diabetic chronic kidney disease; N18.9 Chronic kidney disease, unspecified; R53.1 Weakness; D46.4 Refractory anemia, unspecified; E55.9 Vitamin D deficiency, unspecified; E44.0 Moderate protein-calorie malnutrition; E11.52 Type 2 diabetes mellitus with diabetic peripheral angiopathy with gangrene; I96 Gangrene, not elsewhere classified | CPT/HCPCS: 11042; A6212; G0463 ==

== ENCOUNTER 2023-02-15 20:08 | Emergency (ER) | payer MEDICARE, MEDICAID ==
[2023-02-15] MEDS ORDERED: DEXTROSE 50% 50 ML (IMS) SYR ONE (20:28)
[2023-02-15] MEDS ORDERED: DEXTROSE 50% 50 ML (IMS) SYR IV STA (20:30)
[2023-02-15 20:41] LABS: BASOPHILS % (AUTO) 0 % (0-10); EOSINOPHILS # (AUTO) 0.1 10^3/uL (0.0-0.3); EOSINOPHILS % (AUTO) 2 % (0-10); HEMATOCRIT 21 % (40-54); LYMPHOCYTES # (AUTO) 0.5 10^3/uL (1.0-4.0); LYMPHOCYTES % (AUTO) 10 % (12-44); MEAN CORPUSCULAR HEMOGLOBIN 28 pg (25-34); MEAN CORPUSCULAR HGB CONC 32 g/dL (32-36); MEAN CORPUSCULAR VOLUME 89 fL (80-99); MEAN PLATELET VOLUME 10.9 fL (9.0-12.2); MONOCYTES # (AUTO) 0.3 10^3/uL (0.0-1.0); MONOCYTES % (AUTO) 6 % (0-12); NEUTROPHILS # (AUTO) 3.9 10^3/uL (1.8-7.8); NEUTROPHILS % (AUTO) 81 % (42-75); PLATELET COUNT 64 10^3/uL (130-400); WHITE BLOOD COUNT 4.8 10^3/uL (4.3-11.0)
--- NOTE | 2023-02-15 20:43 | ED General ---
General Chief Complaint: Unresponsive Stated Complaint: ALTERED MENTAL STATUS Source of Information: Patient History of Present Illness Date Seen by Provider: Feb 15, 2023 Time Seen by Provider: 20:08 Initial Comments 57-year-old male with end-stage renal disease on dialysis that presents with altered mental status. EMS reports low blood sugar. His sugar was low at 40 on arrival to the ED. Unable to obtain peripheral IV access but a IO was placed on the right humerus. Part of an amp of D50 was infused through the IO. Unclear if he had dialysis recently. He presents without any family at the bedside. Unknown how long he has been altered mental status. He does answer some questions but has a GCS of 12 with 3 for Eyes, 4 for verbal response, 5 for motor response. Administer dextrose 1 amp D50 through his dialysis catheter as we were unable to establish peripheral IV access. With that his sugar came up to 183. Despite that he was still having decreased mental status and slow to respond. Associated Systoms: No Chest Pain, No Cough, No Nausea/Vomiting; Weakness Allergies and Home Medications Allergies Coded Allergies: No Known Drug Allergies (Unverified , 08/17/18) Patient Home Medication List Home Medication List Reviewed: Yes Amitriptyline HCl (Amitriptyline HCl) 50 Mg Tablet, 50 MG PO HS, (Reported) Entered as Reported by: DAYNA BORJAS on 08/17/181909 Atorvastatin Calcium (Atorvastatin Calcium) 40 Mg Tablet, 40 MG PO HS, (Repo rted) Entered as Reported by: DAYNA BORJAS on 08/17/181909 Azithromycin (Azithromycin) 500 Mg Tablet, 500 MG PO DAILY Prescribed by: BRIANA VALDEZ on 07/05/211851 Gabapentin (Gabapentin) 600 Mg Tablet, 600 MG PO TID, (Reported) Entered as Reported by: DAYNA BORJAS on 08/17/181909 Hydrocodone Bit/Acetaminophen (Lortab 5 Mg Tablet) 1 Tab Tab, 1 TAB PO Q4-6HR PRN for PAIN-MODERATE Prescribed by: DAVID HERNÁNDEZ on 08/19/18 09 Insulin Aspart (Novolog Flexpen) 300 Units/3 Ml Solution, 15 UNITS SC TIDAC, (Reported) Entered as Reported by: DAYNA BORJAS on 08/17/181909 Insulin Detemir (Levemir Flextouch) 100 Unit/1 Ml Insuln.pen, 25 UNITS SC BID, (Reported) Entered as Reported by: DAYNA BORJAS on 08/17/181909 Metoclopramide HCl (Metoclopramide HCl) 10 Mg Tablet, 10 MG PO TID, (Reported) Entered as Reported by: DAYNA BORJAS on 08/17/181909 Metoprolol Tartrate (Metoprolol Tartrate) 25 Mg Tablet, 25 MG PO BID Prescribed by: DAVID HERNÁNDEZ on 08/19/18 0928 Omeprazole (Omeprazole) 40 Mg Capsule.dr, 40 MG PO DAILY, (Reported) Entered as Reported by: DAYNA BORJAS on 08/17/181909 Tramadol HCl (Tramadol HCl) 50 Mg Tablet, 50 MG PO Q6H PRN for PAIN Prescribed by: MARCIA DENNIS on 06/19/21 1333 Review of Systems Review of Systems Constitutional: No chills, No fever EENTM: no symptoms reported Respiratory: No cough Cardiovascular: edema Gastrointestinal: No nausea, No vomiting altered mental status so unable to obtain full ROS. Past Pkzghke-Unhyfx-Kxhpve Hx Immunizations Up To Date Tetanus Booster (TDap): Unknown PED Vaccines UTD: Yes First/Initial COVID19 Vaccinat: October 2020 Second COVID19 Vaccination Ryan: October 2020 Third COVID19 Vaccination Date: October 2020 Seasonal Allergies Seasonal Allergies: No Past Medical History Surgery/Hospitalization HX: IDDM, LLE and LUE amputations Surgeries: Yes (Rods placed in leg and back, fatty abdominal tumor removed.) Gallbladder, Orthopedic Respiratory: No Cardiac: Yes Chronic Edema/Swelling, High Cholesterol, Hypertension Neurological: Yes Neuropathy Genitourinary: No Gastrointestinal: Yes (GASTROPARESIS ???; S/P CHOLECYSTECTOMY; HEPATITIS C--S/P TREATMENT) Gastroesophageal Reflux, Hepatitis, Gall Bladder Disease Musculoskeletal: Yes (RODS IN BACK AND FEMUR; CHRONIC JOINT PAIN) Back Injury, Chronic Back Pain Endocrine: Yes (OBESE; NON-COMPLIANCE WITH DM-DOES NOT CHECK BLOOD SUGAR OR FOLLOW DIET. ) Diabetes, Insulin dep HEENT: No Cancer: No Psychosocial: No Integumentary: No Blood Disorders: No Adverse Reaction/Blood Tranf: No Physical Exam Vital Signs Vital Signs - First Documented 02/15/23 02/15/23 20:08 22:00 Temp 37.0 Pulse 85 Resp 27 B/P (MAP) 146/98 (114) Pulse Ox 98 O2 Delivery Room Air O2 Flow Rate 2.00 Capillary Refill : Height, Weight, BMI Height: 5'6.00" Weight: 234lbs. 0.0oz. 106.109822ll; 36.00 BMI Method:Stated General Appearance: Chronically ill, Other (decreased mental status with GCS 12) HEENT: PERRL/EOMI; No Moist Mucous Membranes (dry mucus membranes) Neck: Full Range of Motion, Normal Inspection, Non Tender, Supple Respiratory: Chest Non Tender, No Accessory Muscle Use, No Respiratory Distress, Decreased Breath Sounds Cardiovascular: Regular Rate, Rhythm, Normal Peripheral Pulses Gastrointestinal: Normal Bowel Sounds, No Pulsatile Mass, Non Tender, Soft Rectal: Deferred Extremity: Normal Capillary Refill Neurologic/Psychiatric: Other (decreased mental status with GCS 12, 3 for Eyes, 4 for Verbal and 5 for motor) Skin: Warm/Dry Progress/Results/Core Measures Suspected Sepsis SIRS Temperature: Pulse: Respiratory Rate: Laboratory Tests 02/15/23 20:40: White Blood Count 4.8 Blood Pressure / Mean: Laboratory Tests 02/15/23 20:40: Creatinine 2.61H, Platelet Count 64L, Total Bilirubin 0.4 Results/Orders Lab Results Laboratory Tests Test 02/15/23 20:14 02/15/23 20:38 02/15/23 20:40 02/15/23 20:43 Range/Units Glucometer 40 *L 183 H 70-110 MG/DL White Blood Count 4.8 4.3-11.0 10^3/uL Red Blood Count 2.32 L 4.30-5.52 10^6/uL Hemoglobin 6.6 *L 13.3-17.7 g/dL Hematocrit 21 L 40-54 % Mean Corpuscular Volume 89 80-99 fL Mean Corpuscular Hemoglobin 28 25-34 pg Mean Corpuscular Hemoglobin Concent 32 32-36 g/dL Red Cell Distribution Width 16.4 H 10.0-14.5 % Platelet Count 64 L 130-400 10^3/uL Mean Platelet Volume 10.9 9.0-12.2 fL Immature Granulocyte % (Auto) 1 % Neutrophils (%) (Auto) 81 H 42-75 % Lymphocytes (%) (Auto) 10 L 12-44 % Monocytes (%) (Auto) 6 0-12 % Eosinophils (%) (Auto) 2 0-10 % Basophils (%) (Auto) 0 0-10 % Neutrophils # (Auto) 3.9 1.8-7.8 10^3/uL Lymphocytes # (Auto) 0.5 L 1.0-4.0 10^3/uL Monocytes # (Auto) 0.3 0.0-1.0 10^3/uL Eosinophils # (Auto) 0.1 0.0-0.3 10^3/uL Basophils # (Auto) 0.0 0.0-0.1 10^3/uL Immature Granulocyte # (Auto) 0.0 0.0-0.1 10^3/uL Neutrophils % (Manual) 64 % Lymphocytes % (Manual) 10 % Monocytes % (Manual) 2 % Band Neutrophils 22 % Atypical Lymphocytes 2 % Toxic Granulation 2+ Platelet Estimate DECREASED Percent Immature Platelet Fraction 2.7 0.0-7.6 % Polychromasia SLIGHT Poikilocytosis MODERATE Anisocytosis MODERATE Target Cells SLIGHT Crenated Cell SLIGHT Schistocytes SLIGHT Blood Morphology Comment ABNORMAL Sodium Level 145 135-145 MMOL/L Potassium Level 3.4 L 3.6-5.0 MMOL/L Chloride Level 111 H 98-107 MMOL/L Carbon Dioxide Level 18 L 21-32 MMOL/L Anion Gap 16 H 5-14 MMOL/L Blood Urea Nitrogen 34 H 7-18 MG/DL Creatinine 2.61 H 0.60-1.30 MG/DL Estimat Glomerular Filtration Rate 28 BUN/Creatinine Ratio 13 Glucose Level 195 H 70-105 MG/DL Calcium Level 7.5 L 8.5-10.1 MG/DL Corrected Calcium 9.2 8.5-10.1 MG/DL Magnesium Level 1.1 *L 1.6-2.4 MG/DL Total Bilirubin 0.4 0.1-1.0 MG/DL Aspartate Amino Transf (AST/SGOT) 16 5-34 U/L Alanine Aminotransferase (ALT/SGPT) 19 0-55 U/L Alkaline Phosphatase 223 H 40-136 U/L C-Reactive Protein 15.66 H <0.50 MG/DL Total Protein 5.6 L 6.4-8.2 GM/DL Albumin 1.9 L 3.2-4.5 GM/DL Urine Color GRADY H Urine Clarity SL CLOUDY Urine pH 6.0 5-9 Urine Specific [place] 1.015 L 1.016-1.022 Urine Protein 3+ H NEGATIVE Urine Glucose (UA) NEGATIVE NEGATIVE Urine Ketones NEGATIVE NEGATIVE Urine Nitrite NEGATIVE NEGATIVE Urine Bilirubin NEGATIVE NEGATIVE Urine Urobilinogen 0.2 < = 1.0 MG/DL Urine Leukocyte Esterase TRACE H NEGATIVE Urine RBC (Auto) 2+ H NEGATIVE Urine RBC 5-10 H /HPF Urine WBC 2-5 /HPF Urine Squamous Epithelial Cells RARE /HPF Urine Renal Epithelial Cells 0-2 /HPF Urine Crystals NONE /LPF Urine Bacteria NEGATIVE /HPF Urine Casts PRESENT /LPF Urine Hyaline Casts 0-2 H /LPF Urine Mucus NEGATIVE /LPF Urine Yeast FEW H /HPF Urine Culture Indicated YES Test 02/15/23 21:06 Range/Units Glucometer 124 H 70-110 MG/DL My Orders Orders - BRIANA VALDEZ MD D50w (Emergency) Syringe (Dextrose 50% 5 (02/15/23 20:28) Cbc With Automated Diff (02/15/23 20:30) Comprehensive Metabolic Panel (02/15/23 20:30) Ed Iv/Invasive Line Start (02/15/23 20:30) Crp Fs (02/15/23 20:30) Magnesium (02/15/23 20:30) Accucheck Stat ONCE (02/15/23 20:30) D50w (Emergency) Syringe (Dextrose 50% 5 (02/15/23 20:30) Ct Head Wo (02/15/23 20:41) Chest 1 View Ap/Pa Only (02/15/23 20:41) Ua Culture If Indicated (02/15/23 20:41) Manual Differential (02/15/23 20:40) Ns (Ivpb) 250 Ml (Sodium Chloride 0.9% 2 (02/15/23 21:20) Ekg Tracing (02/15/23 21:20) O2 (02/15/23 21:20) Ns (Ivpb) 250 Ml (Sodium Chloride 0.9% 2 (02/15/23 21:21) D5 Ns 1,000 Ml Iv Soln (Dextrose 5%/0.9 (02/15/23 21:38) Urine Culture (02/15/23 20:43) Vital Signs/I&O 02/15/23 02/15/23 20:08 22:00 Temp 37.0 Pulse 85 Resp 27 B/P (MAP) 146/98 (114) Pulse Ox 98 98 O2 Delivery Room Air Nasal Cannula O2 Flow Rate 2.00 Capillary Refill : Progress Note #1: Progress Note Differential diagnosis of hypoglycemia, stroke, UTI, electrolyte imbalance, sepsis, hypoxia. After multiple attempts to try and start a peripheral IV access unable to obtain access and so his dialysis port was accessed as an emergent procedure so that he could be given an amp of D50 for his glucose of 40. He had his blue venous port flushed and then 1 amp of D50 was infused. Obtain complete blood count, CRP, comprehensive metabolic profile, Accu-Chek, urinalysis. CT scan of the head without IV contrast to look for acute process to account for his altered mental status. 1 view chest x-ray looking for signs of pneumonia or pathology to contribute to his altered mental status. Electrocardiogram and placed on cardiac gold leaf gilder. Initially his cardiac gold leaf gilder shows an irregular rhythm with heart rate in the 70s. After the amp of D50 was infused the sugar did come up from 40-1 83 and he was slightly more responsive but still had a GCS of 12. [facility] Progress Note #2: Progress Note When he came back from radiology for imaging his blood pressure was 84-88 systolic over 50-56. He was still responsive to voice but otherwise was somnolent. He was confused and answering questions. Still had a GCS of 12. At 2057 I called [facility] to see if they had capability and capacity for the patient with his history of diabetes and dialysis and having prior episodes of altered mental status and metabolic encephalopathy. I spoke with Jayde PARKS at the transfer center and as I did not have his CT head or the chemistry profile back she requested a call back once I have those numbers. 2123 this comprehensive metabolic profile came back showing no acute significant electrolyte imbalance to account for his altered mental status. He did have a low magnesium of 1.1. His CRP was elevated to 15.66. Creatinine looked okay at 2.6. BUN was 34. On my personal review and interpretation of the chest x-ray and CT head he did not have any acute infiltrate and no acute intracranial process. KASEY Donohue connected me with Dr. Dennis in the hospital staff pharmacist that [facility]. I reviewed the case with him in presentation. He requested the patient receive D10 normal saline. They accepted him to the ICU at [facility]. Will call helicopter for transport of the patient as he continues to have decreased mental status and hypotension. He was given a 250 mL normal saline bolus to try and help with his hypotension. This did help bring his pressure up to 92/63. 2199 I did not have D10 water on the patient so ordered D5 normal saline at 100 mils an hour. When going for helicopter they were already in the ER and in the area so the diverted here and should be arriving within 5 to 10 minutes. Progress Note #3: Progress Note Urinalysis came back with proteinuria, some yeast. Trace leukocyte esterase. Did not appear to be a UTI. 2214 When the helicopter arrived patient was slightly more responsive and answering some questions better. Blood pressure is at 92/63. ECG Initial ECG Impression Date: Feb 15, 2023 Initial ECG Impression Time: 21:20 Initial ECG Rate: 100 Initial ECG Rhythm: A Fib/Flutter Initial ECG Comparisson: Changed (now shows atrial fibrillation compared to ECG from 01/13/2023) Comment Atrial fibrillation with heart rate of [address] elevation. QT interval 451 ms with a QTc interval of 508 ms. He has changed from January 13, 2023 when he was a sinus rhythm and now is in atrial fibrillation. Diagnostic Imaging Diagonstic Imaging: Xray Plain Films/CT/US/NM/MRI: chest Comments [facility] [place], [place] NAME: MILAGRO RING [facility] REC#: [id number] PT STATUS: REG ER : 1965 PHYSICIAN: BRIANA VALDEZ MD ADMIT DATE: 02/15/23/ER FS Draft Date of Exam:02/15/23 CHEST 1 VIEW AP/PA ONLY INDICATION: Altered mental status. Unresponsive patient. COMPARISON: 01/12/2023. FINDINGS: Single frontal radiographic view of the chest was obtained and shows low inspiratory volumes with bibasilar airspace disease. There may be a small left effusion. No pneumothorax is seen on either side. Cardiac silhouette and pulmonary vasculature are within normal limits. Right internal jugular dual-lumen central venous catheter is seen with tip in right atrium. Osseous structures show no gross acute abnormality. IMPRESSION: Low lung volumes with left basilar effusion and probable bibasilar atelectasis. Dictated on workstation # [id number] Dict: 02/15/232116 Trans: 02/15/232120 [facility] [id number] Interpreted by: ROX STAFFORD MD Electronically signed by: Reviewed: Reviewed by Me Diagonstic Imaging: CT Plain Films/CT/US/NM/MRI: head Comments [facility] [place] [place] NAME: MILAGRO RING [facility] REC#: [id number] PT STATUS: REG ER : 1965 PHYSICIAN: BRIANA VALDEZ MD ADMIT DATE: 02/15/23/ER FS Draft Date of Exam:02/15/23 CT HEAD WO INDICATION: Altered mental status, hypoglycemia. TECHNIQUE: Routine non contrast-enhanced axial images were obtained from the skull base to the vertex. Auto Exposure Controls were utilized during the CT exam to meet ALARA standards for radiation dose reduction. COMPARISON: 01/12/2023. FINDINGS: The ventricles and cortical sulci are diffusely prominent, compatible with age-related volume loss. There are confluent areas of abnormal low attenuation in the periventricular white matter. This is consistent with chronic small vessel ischemic changes. There is no midline shift or mass-effect. No acute intra-axial hemorrhage is seen. There is no abnormal area of increased or decreased density to suggest acute hemorrhage or edema. No extra-axial mass or collection is present. The bony calvarium is intact. The visualized paranasal sinuses show small air-fluid level within the left maxillary sinus. The mastoid air cells are clear. IMPRESSION: 1. No acute intracranial abnormality. No CT evidence of mass, acute infarct or intracranial hemorrhage. 2. Chronic small vessel ischemic changes in the deep white matter. Dictated on workstation # [id number] Dict: 02/15/232117 Trans: 02/15/232125 [place] [id number] Interpreted by: ROX STAFFORD MD Electronically signed by: Reviewed: Reviewed by Me Critical Care Note Critical Care Total Time (minutes) 75 minutes Progress I spent at least 75 minutes of critical care time with the patient. Time spent was excluding separately billable procedures. Time was spent obtaining history from electronic medical record and EMS is independent historian since the patient had decreased responsiveness and altered mental status, ordering test and reviewing results, ordering interventions and reviewing response, discussion with consultants, documentation in the chart. Patient was at risk of neurovascular and cardiovascular compromise and collapse with altered mental status, hypoglycemia, chronic end-stage renal disease on hemodialysis. He required my immediate intervention and direct care to help stabilize his condition and arrange for transfer to higher level of care. Departure Impression Primary Impression: Altered mental status Qualified Codes: R41.82 - Altered mental status, unspecified Additional Impressions: Anemia Qualified Codes: D64.9 - Anemia, unspecified ESRD (end stage renal disease) on dialysis New onset atrial fibrillation Hypotension Qualified Codes: I95.9 - Hypotension, unspecified Hypoglycemia associated with diabetes Hypomagnesemia Disposition: 30 STILL A PATIENT Condition: Critical (ERASED) Transfer Transfer Reason: Exceeds level of care (Needs ICU as well as access to her nephrology and possibly neurology) Time Spoke to Accepting Phy: 21:32 Transfer Progress Notes Discussed with ICU hospital staff pharmacist Dr. Blevins at [facility]. Reviewed that the patient is a dialysis patient that is diabetic and initially had hypoglycemia with a sugar of 40. Unknown how long his sugars been down. Unknown when he last dialyzed. Despite getting his sugar up with an amp of D50 he had slight improvement in his responsiveness but was still altered. His complete blood count showed anemia with a hemoglobin down to 6.6. He had low platelets at 64. His comprehensive metabolic profile looks like he had possibly recently dialyzed as his BUN was 34 with a creatinine of 2.6. Glucose was 195 on the chemistry panel. His magnesium was low at 1.1. His CRP was elevated to 15.66. On my review of his 1 view chest x-ray he had poor inspiratory effort and left pleural effusion with pulmonary vascular congestion but no definite infiltrate. On my review of personal interpretation of the CT head without IV contrast I did not appreciate any acute bleeding or stroke. Transfer Facility: [facility] Method of Transfer: Air Departure-Patient Inst. Referrals: RACQUEL RICHARDSON MD (PCP/Family) Primary Care Physician BRIANA VALDEZ MD Feb 15, 2023 20:43
[2023-02-15 20:55] LABS: HEMOGLOBIN 6.6 g/dL (13.3-17.7)
[2023-02-15 21:05] LABS: POTASSIUM 3.4 MMOL/L (3.6-5.0)
[2023-02-15 21:06] LABS: CALCIUM 7.5 MG/DL (8.5-10.1); CREATININE SERUM 2.61 MG/DL (0.60-1.30)
[2023-02-15 21:07] LABS: MAGNESIUM 1.1 MG/DL (1.6-2.4)
[2023-02-15 21:08] LABS: ALBUMIN 1.9 GM/DL (3.2-4.5); BILIRUBIN,TOTAL 0.4 MG/DL (0.1-1.0); TOTAL PROTEIN 5.6 GM/DL (6.4-8.2)
[2023-02-15 21:09] LABS: BAND NEUTROPHILS 22 %; NEUTROPHILS % (MANUAL) 64 %
[2023-02-15 21:11] LABS: ANISOCYTOSIS MODERATE; ATYPICAL LYMPHOCYTES 2 %; LYMPHOCYTES % (MANUAL) 10 %; MONOCYTES % (MANUAL) 2 %; PLATELET ESTIMATE DECREASED; POLYCHROMASIA SLIGHT; RBC MORPH ABNORMAL
[2023-02-15 21:12] LABS: CRENATED RBC SLIGHT; SCHISTOCYTES SLIGHT; TARGET CELLS SLIGHT; TOXIC GRANULATION/VACUOLAZATIO 2+
[2023-02-15 21:13] LABS: POIKILOCYTOSIS MODERATE
[2023-02-15] MEDS ORDERED: NS (IVPB) 250 ML 250 ML IV STA (21:20)
[2023-02-15] MEDS ORDERED: NS (IVPB) 250 ML 250 ML ONE (21:21)
[2023-02-15 21:22] LABS: BILIRUBIN,URINE NEGATIVE (NEGATIVE); CLARITY,URINE SL CLOUDY; GLUCOSE, URINE (UA) NEGATIVE (NEGATIVE); KETONES,URINE NEGATIVE (NEGATIVE); LEUKOCYTE ESTERASE ,URINE TRACE (NEGATIVE); NITRITE,URINE NEGATIVE (NEGATIVE); PROTEIN,URINE 3+ (NEGATIVE)
--- NOTE | 2023-02-15 21:22 | Diagnostic Imaging Report ---
INDICATION: Altered mental status. Unresponsive patient. COMPARISON: 01/12/2023. FINDINGS: Single frontal radiographic view of the chest was obtained and shows low inspiratory volumes with bibasilar airspace disease. There may be a small left effusion. No pneumothorax is seen on either side. Cardiac silhouette and pulmonary vasculature are within normal limits. Right internal jugular dual-lumen central venous catheter is seen with tip in right atrium. Osseous structures show no gross acute abnormality. IMPRESSION: Low lung volumes with left basilar effusion and probable bibasilar atelectasis. Dictated by: Dictated on workstation # [id number]
--- NOTE | 2023-02-15 21:26 | Diagnostic Imaging Report ---
INDICATION: Altered mental status, hypoglycemia. TECHNIQUE: Routine non contrast-enhanced axial images were obtained from the skull base to the vertex. Auto Exposure Controls were utilized during the CT exam to meet ALARA standards for radiation dose reduction. COMPARISON: 01/12/2023. FINDINGS: The ventricles and cortical sulci are diffusely prominent, compatible with age-related volume loss. There are confluent areas of abnormal low attenuation in the periventricular white matter. This is consistent with chronic small vessel ischemic changes. There is no midline shift or mass-effect. No acute intra-axial hemorrhage is seen. There is no abnormal area of increased or decreased density to suggest acute hemorrhage or edema. No extra-axial mass or collection is present. The bony calvarium is intact. The visualized paranasal sinuses show small air-fluid level within the left maxillary sinus. The mastoid air cells are clear. IMPRESSION: 1. No acute intracranial abnormality. No CT evidence of mass, acute infarct or intracranial hemorrhage. 2. Chronic small vessel ischemic changes in the deep white matter. Dictated by: Dictated on workstation # [id number]
[2023-02-15 21:32] LABS: COLOR,URINE AMBER
[2023-02-15 21:33] LABS: BACTERIA,URINE NEGATIVE /HPF; HYALINE CASTS, URINE 0-2 /LPF; RENAL EPITHELIAL CELLS,URINE 0-2 /HPF; SQUAMOUS EPITHELIAL CELL,UR RARE /HPF; YEAST,URINE FEW /HPF
[2023-02-15] MEDS ORDERED: D5 NS 1,000 ML IV SOLN 1,000 ML IV STA (21:38)
[2023-02-15 22:40] VITALS: BP 92/63
== END 2023-02-15 22:40 | disposition still patient (30) ==
LOC: EDUNIT# 20:08 → ER FS 20:09
DX: R41.82 Altered mental status, unspecified (principal); D64.9 Anemia, unspecified; I48.91 Unspecified atrial fibrillation; I95.9 Hypotension, unspecified; E83.42 Hypomagnesemia; E11.649 Type 2 diabetes mellitus with hypoglycemia without coma; I12.0 Hypertensive chronic kidney disease with stage 5 chronic kidney disease or end stage renal disease; E11.22 Type 2 diabetes mellitus with diabetic chronic kidney disease; N18.6 End stage renal disease; E11.40 Type 2 diabetes mellitus with diabetic neuropathy, unspecified; E66.9 Obesity, unspecified; Z99.2 Dependence on renal dialysis; Z79.4 Long term (current) use of insulin; Z68.36 Body mass index [BMI] 36.0-36.9, adult
CPT/HCPCS: 36415; 36680; 70450; 71045; 80053; 81000; 82947; 83735; 85007; 85027; 86141; 87088; 93005; 99291; 99292

== ENCOUNTER → 2023-03-04 | Outpatient (CLI) | payer MEDICARE, MEDICAID | LOC: WOUNDCARE 10:11 | PROVIDERS: ATTEND Family Medicine | DX: T81.31XA Disruption of external operation (surgical) wound, not elsewhere classified, initial encounter (principal); T87.89 Other complications of amputation stump; I96 Gangrene, not elsewhere classified; N18.6 End stage renal disease; M62.81 Muscle weakness (generalized); E55.9 Vitamin D deficiency, unspecified; E11.621 Type 2 diabetes mellitus with foot ulcer; M86.471 Chronic osteomyelitis with draining sinus, right ankle and foot; D69.59 Other secondary thrombocytopenia; D63.1 Anemia in chronic kidney disease; E43 Unspecified severe protein-calorie malnutrition; K74.60 Unspecified cirrhosis of liver; I70.234 Atherosclerosis of native arteries of right leg with ulceration of heel and midfoot; L89.020 Pressure ulcer of left elbow, unstageable; L97.512 Non-pressure chronic ulcer of other part of right foot with fat layer exposed; I95.9 Hypotension, unspecified; Z68.34 Body mass index [BMI] 34.0-34.9, adult | CPT/HCPCS: 11042; A6197; G0463 ==